=== PATIENT | male | born 1945 | race Caucasian/White ===

== ENCOUNTER 2017-10-24 16:39 | Inpatient (IN) | payer OTHER, MEDICARE ==
[~2017-10-24] VITALS: Ht 177.8 cm; Wt 73.4 kg
[2017-10-24] MEDS: DEXAMETHASONE SOD PHOS 4 MG/ML VIAL IV PUSH SCH (00:37)
[2017-10-24 16:41] VITALS: BP 96/66; PULSE 89; RESP 16; TEMP 97.9; O2SAT 98
[2017-10-24] MEDS ORDERED: SODIUM CHLORIDE 0.9% FLUSH 10 ML FLUSH IVF PRN (17:15)
[2017-10-24] MEDS ORDERED: DEXAMETHASONE SOD PHOS 4 MG/ML VIAL IV PUSH ONE (17:15)
[2017-10-24] MEDS ORDERED: SODIUM CHLORID 0.9% 500 ML INJ 500 ML IV ONE (17:15)
--- NOTE | 2017-10-24 17:39 | RADRPT ---
EXAM DATE/TIME: 10/24/2017 17:22 [facility] COMPARISON: No previous studies available for comparison. INDICATIONS : Difficulty breathing MEDICAL HISTORY : Carcinoma, lung. SURGICAL HISTORY : None. ENCOUNTER: Initial ACUITY: 1 day PAIN SCORE: 0/10 LOCATION: Bilateral chest FINDINGS: The right lung is clear. 2 somewhat lobulated masses are seen in the left upper lobe posteriorly lar gest measuring 2 cm and was seen on the CT scan of the chest dated 08/15/2007. The heart and vascular ity are normal. Degenerative changes thoracic spine. CONCLUSION: Left lung masses as described above. No new findings. Shakir Kumar MD FACR on October 24, 2017 at 17:30 Board Certified Radiologist. This report was verified electronically.
--- NOTE | 2017-10-24 17:59 | PD ---
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 Randhawa, with complaints of more difficulty speaking. Patient just saw his oncologist yesterday and was started on ipilimumab and nivolumab. He also decreased his Decadron from 4 mg to 2 mg daily. Patient also is on Keppra 500 mg twice daily. The patient has not had a seizure. Labs ordered including CBC, CMP, coagulation studies, and TSH., and CT scan and chest x-ray was ordered by Dr. Virk per his oncologist. Patient was given Decadron 4 mg IV. Patient is given a 500 mL of normal saline bolus. Patient is allergic to acetaminophen and oxycodone. PFSH Past Medical History Cardiovascular Problems: Yes Chemotherapy: Yes Diabetes: Yes Respiratory: Yes Social History Alcohol Use: No Tobacco Use: No Substance Use: No Allergies-Medications (Allergen,Severity, Reaction): Coded Allergies: acetaminophen (Verified Allergy, Severe, Rash, 10/24/17) ITCHY oxycodone (Verified Allergy, Severe, Rash, 10/24/17) ITCHY Reported Meds & Prescriptions Reported Meds & Active Scripts Active Reported Metformin (Metformin HCl) 1,000 Mg Tab 1,000 Mg PO BIDPC Pantoprazole (Pantoprazole Sodium) 40 Mg Tab 40 Mg PO DAILY Levemir Inj (Insulin Detemir) 1,000 unit/ 10 ML Vial 30 Units SQ HS Do not mix with any other Insulin. Dexamethasone 2 Mg Tab 2 Mg PO DAILY Rosuvastatin (Rosuvastatin Calcium) 40 Mg Tab 40 Mg PO DAILY Levothyroxine (Levothyroxine Sodium) 75 Mcg Tab 75 Mcg PO DAILY Review of Systems Except as stated in HPI: all other systems reviewed are Neg General / Constitutional: No: Fever Eyes: No: Diploplia, Blurred Vision, Photophobia, Blind Spots, Visual changes, Blindness HENT: Positive: Lightheadedness, No: Headaches, Vertigo, Sore Throat, Rhinitis , Rhinorrhea, Congestion, Nosebleed, Neck Stiffness, Neck Pain, Dental Difficulties, Earache Cardiovascular: Positive: Dyspnea on exertion, No: Chest Pain or Discomfort Respiratory: No: Cough, Shortness of Breath, Wheezing Gastrointestinal: Positive: Nausea, No: Vomiting, Diarrhea, Abdominal Pain Genitourinary: Positive: Decreased Urinary Output, No: Urgency, Frequency, Dysuria Musculoskeletal: Positive: Weakness, No: Pain Skin: No Rash Neurologic: No: Weakness Psychiatric: No: Depression Endocrine: No: Polydipsia Hematologic/Lymphatic: No: Easy Bruising Physical Exam Narrative GENERAL: Patient appears weak, and dry. SKIN: Warm and dry. Decreased pallor. Decreased turgor with tenting present. HEAD: Atraumatic. Normocephalic. EYES: Pupils equal and round. No scleral icterus. No injection or drainage. ENT: No nasal bleeding or discharge. Mucous membranes pink and dry. Patient has mild thrush noted. Otherwise pharynx is clear. Airway is patent NECK: Trachea midline. No JVD. CARDIOVASCULAR: Regular rate and rhythm. No murmurs gallops or rubs appreciated. RESPIRATORY: No accessory muscle use. Clear to auscultation. Breath sounds equal bilaterally. GASTROINTESTINAL: Abdomen soft, non-tender, nondistended. Hepatic and splenic margins not palpable. RECTAL: Rectum appears raw from moist liquidy stool noted. Rectal tone is present. Stool is brown and grossly guaiac positive. There are no hemorrhoids or fissures noted. MUSCULOSKELETAL: Extremities without clubbing, cyanosis, or edema. No obvious deformities. NEUROLOGICAL: Awake and alert. No obvious cranial nerve deficits. Motor grossly within normal limits. Five out of 5 muscle strength in the arms and legs. Normal speech. PSYCHIATRIC: Appropriate mood and affect; insight and judgment normal. Data Data Last Documented VS Vital Signs Date Time Temp Pulse Resp B/P (MAP) Pulse Ox O2 Delivery O2 Flow Rate FiO2 10/24/17 19:22 74 17 10/24/17 19:21 121/57 (78) 98 Room Air 10/24/17 16:41 97.9 Orders Orders Complete Blood Count With Diff (10/24/17 17:03) Comprehensive Metabolic Panel (10/24/17 17:03) Prothrombin Time / Inr (Pt) (10/24/17 17:03) Act Partial Throm Time (Ptt) (10/24/17 17:03) Ct Brain W/O Iv Contrast(Rout) (10/24/17 17:03) Ecg Monitoring (10/24/17 17:03) Iv Access Insert/Monitor (10/24/17 17:03) Oximetry (10/24/17 17:03) Sodium Chloride 0.9% Flush (Ns Flush) (10/24/17 17:15) Sodium Chlorid 0.9% 500 Ml Inj (Ns 500 M (10/24/17 17:15) Dexamethasone Inj (Decadron Inj) (10/24/17 17:15) Mri Brain W&W/O Contrast (10/24/17 17:03) Thyroid Stimulating Hormone (10/24/17 17:03) Chest, Pa & Lat (10/24/17 17:03) Ondansetron Inj (Zofran Inj) (10/24/17 19:00) Free Thyroxine (T4) (10/24/17 18:45) Admit Order (Ed Use Only) (10/24/17 19:25) Labs Laboratory Tests Test 10/24/17 18:45 White Blood Count 14.3 TH/MM3 Red Blood Count 4.87 MIL/MM3 Hemoglobin 14.9 GM/DL Hematocrit 43.8 % Mean Corpuscular Volume 89.9 FL Mean Corpuscular Hemoglobin 30.6 PG Mean Corpuscular Hemoglobin Concent 34.0 % Red Cell Distribution Width 15.4 % Platelet Count 187 TH/MM3 Mean Platelet Volume 8.5 FL Neutrophils (%) (Auto) 68.8 % Lymphocytes (%) (Auto) 23.3 % Monocytes (%) (Auto) 7.0 % Eosinophils (%) (Auto) 0.1 % Basophils (%) (Auto) 0.8 % Neutrophils # (Auto) 9.9 TH/MM3 Lymphocytes # (Auto) 3.3 TH/MM3 Monocytes # (Auto) 1.0 TH/MM3 Eosinophils # (Auto) 0.0 TH/MM3 Basophils # (Auto) 0.1 TH/MM3 CBC Comment DIFF FINAL Differential Comment Prothrombin Time 10.6 SEC Prothromb Time International Ratio 1.0 RATIO Activated Partial Thromboplast Time 23.8 SEC Blood Urea Nitrogen 93 MG/DL Creatinine 8.22 MG/DL Random Glucose 157 MG/DL Albumin 2.8 GM/DL Calcium Level 9.2 MG/DL Aspartate Amino Transf (AST/SGOT) 70 U/L Alanine Aminotransferase (ALT/SGPT) 86 U/L Sodium Level 133 MEQ/L Potassium Level 4.6 MEQ/L Chloride Level 93 MEQ/L Carbon Dioxide Level 18.5 MEQ/L Anion Gap 22 MEQ/L Estimat Glomerular Filtration Rate 6 ML/MIN [facility] Medical Decision Making Medical Screen Exam Complete: Yes Emergency Medical Condition: Yes Medical Record Reviewed: Yes Differential Diagnosis Generalized weakness. Difficulty speaking. Known metastatic melanoma to the brain and lungs. Recent chemotherapy. Narrative Course Patient is medically stable at time of exam Labs ordered including CBC, CMP, coagulation studies, and TSH., and CT scan and chest x-ray was ordered by Dr. Virk per his oncologist. Patient was given Decadron 4 mg IV. Patient is given a 500 mL of normal saline bolus. Chest x-ray shows no acute changes from previous. Patient continues to have metastatic lesions as previous without change per radiologist. CBC is unremarkable except for leukocytosis of 14.3. Coagulation studies shows a PT of 10.6, INR 1.0. APTT is 23.8 Chemistries show sodium 133, potassium 4.6, chloride is 93. Carbon dioxide is 18.5, anion gap is 22, BUN is 93 with a creatinine of 8.22, GFR estimated 6. Random glucose 157 AST 70, ALT 86, albumin is 2.8. Patient is discussed with Dr. Randhawa as well as Dr. Fink, and the patient will be admitted. Diagnosis Primary Impression: Acute renal failure Qualified Codes: N17.9 - Acute kidney failure, unspecified Additional Impressions: Weakness generalized Metastatic melanoma Stool guaiac positive Admitting Information Admitting Physician Requests: Admit Condition: Stable Baldemar Coffey Oct 24, 2017 17:59
--- NOTE | 2017-10-24 18:26 | RADRPT ---
EXAM DATE/TIME: 10/24/2017 17:43 [facility] COMPARISON: No previous studies available for comparison. INDICATIONS : Patient complains of weakness, headache, history brain metastases. RADIATION DOSE: 56.35 CTDIvol (mGy) MEDICAL HISTORY : Cardiovascular disease. Diabetes mellitus type 1. chemo, metastatic melanoma, brain metastases SURGICAL HISTORY : None. ENCOUNTER: Initial ACUITY: 1 day PAIN SCALE: 5/10 LOCATION: cranial TECHNIQUE: Multiple contiguous axial images were obtained of the head. Using automated exposure control and adj ustment of the mA and/or kV according to patient size, radiation dose was kept as low as reasonably a chievable to obtain optimal diagnostic quality images. DICOM format image data is available electro nically for review and comparison. FINDINGS: CEREBRUM: The ventricles are normal for age. Multiple hypodense as well as hyperdense masses are seen in both c erebral hemispheres with characteristic for brain metastatic disease. There is a hypodense mass in th e left temporal lobe measuring 2.3 cm. There is a hyperdense mass measuring 1 cm in the left occipita l lobe. There is a 6 mm hyperdense mass in the right insula there is a 1.4 cm hypodense mass in the r ight frontal lobe there is a 1.4 cm hyperdense mass in the right posterior parietal area. No mass eff ect or midline shift. The hyperdense masses could indicate hemorrhage. No significant surrounding cer ebral edema seen. POSTERIOR FOSSA: There is a hyperdense mass measuring 1 cm in the midline vermis. This is positioned just posterior to the fourth ventricle. The fourth ventricle is normal in size. EXTRACRANIAL: The visualized portion of the orbits is intact. SKULL: The calvaria is intact. No evidence of skull fracture. CONCLUSION: 1. There is evidence of diffuse bilateral brain metastatic disease. There are several hyperdense mass es which could be hemorrhagic masses. 2. No significant mass effect or midline shift. Mayo Baird MD on October 24, 2017 at 18:19 Board Certified Radiologist. This report was verified electronically.
[2017-10-24] MEDS ORDERED: LEVO75TA3 PO (18:28)
[2017-10-24] MEDS ORDERED: ROSU1TAB10 PO (18:35)
[2017-10-24] MEDS ORDERED: DEXA2TAB PO (18:35)
[2017-10-24] MEDS ORDERED: PANT40TA3 PO (18:35)
[2017-10-24] MEDS ORDERED: METF1000 PO (18:35)
[2017-10-24] MEDS ORDERED: LEVEMIR SQ (18:35)
[2017-10-24 18:45] VITALS: BP 115/58; PULSE 78; RESP 16; O2SAT 98
[2017-10-24 18:58] LABS: AUTOMATED NEUTROPHIL # 9.9 TH/MM3 (1.8-7.7); BASOPHIL # 0.1 TH/MM3 (0-0.2); BASOPHIL % 0.8 % (0.0-2.0); EOSINOPHIL % 0.1 % (0.0-4.0); HEMATOCRIT 43.8 % (39.0-51.0); HEMOGLOBIN 14.9 GM/DL (13.0-17.0); LYMPH % 23.3 % (9.0-44.0); LYMPHOCYTE # 3.3 TH/MM3 (1.0-4.8); MEAN CELL VOLUME 89.9 FL (80.0-100.0); MEAN CORPUSCULAR HEMOGLOBIN 30.6 PG (27.0-34.0); MEAN PLATELET VOLUME 8.5 FL (7.0-11.0); NEUT % 68.8 % (16.0-70.0); PLATELET COUNT 187 TH/MM3 (150-450); RED BLOOD COUNT 4.87 MIL/MM3 (4.50-5.90); RED CELL DISTRIBUTION WIDTH 15.4 % (11.6-17.2); WHITE BLOOD COUNT 14.3 TH/MM3 (4.0-11.0)
[2017-10-24 18:59] VITALS: O2SAT 98
[2017-10-24] MEDS ORDERED: ONDANSETRON HCL 4 MG/2 ML VIAL IV PUSH ONE (19:00)
[2017-10-24 19:09] LABS: PROTHROMBIN TIME - PATIENT 10.6 SEC (9.8-11.6)
[2017-10-24 19:20] LABS: ALBUMIN 2.8 GM/DL (3.4-5.0); ALT (GPT) 86 U/L (12-78); AST (GOT) 70 U/L (15-37); BICARBONATE 18.5 MEQ/L (21.0-32.0); BLOOD UREA NITROGEN 93 MG/DL (7-18); CALCIUM 9.2 MG/DL (8.5-10.1); CHLORIDE 93 MEQ/L (98-107); CREATININE 8.22 MG/DL (0.60-1.30); GLOMERULAR FILTRATION RATE 6 ML/MIN (>89); GLUCOSE,RANDOM 157 MG/DL (74-106); SODIUM (NA) 133 MEQ/L (136-145)
[2017-10-24 19:21] VITALS: BP 121/57; PULSE 74; RESP 16; O2SAT 98
[2017-10-24 19:30] LABS: ALKALINE PHOSPHATASE 76 U/L (45-117); FREE T4 1.01 NG/DL (0.76-1.46); TOTAL BILIRUBIN ADULT 0.8 MG/DL (0.2-1.0); TOTAL PROTEIN 7.3 GM/DL (6.4-8.2)
[2017-10-24] MEDS ORDERED: SENNOSIDES 8.6 MG TAB PO PRN (19:30)
[2017-10-24] MEDS ORDERED: LACTULOSE SYRUP 20 GM/30 ML CUP PO PRN (19:30)
[2017-10-24] MEDS ORDERED: BISACODYL 10 MG SUPP RECTAL PRN (19:30)
[2017-10-24] MEDS ORDERED: MAGNESIUM HYDROXIDE SUSP 30 ML CUP PO PRN (19:30)
[2017-10-24] MEDS ORDERED: ONDANSETRON HCL 4 MG/2 ML VIAL IVP PRN (19:30)
[2017-10-24] MEDS ORDERED: MORPHINE SULFATE 2 MG/ML INJ IV PUSH PRN ×2 (19:30)
[2017-10-24] MEDS ORDERED: SODIUM CHLORIDE 0.9% FLUSH 10 ML FLUSH IV FLUSH PRN (19:30)
--- NOTE | 2017-10-24 19:34 | HHI.HP ---
HPI Service [facility] Primary Care Physician Jorge L Randhawa MD Admission Diagnosis Acute renal failure /weakness/metastatic melenoma/guaiac positive st Diagnoses: (1) Metastatic melanoma Diagnosis: Principal (2) CASANDRA (acute kidney injury) Diagnosis: Principal (3) Anorexia Diagnosis: Principal (4) Generalized weakness Diagnosis: Principal (5) Oral thrush Diagnosis: Principal (6) DM (diabetes mellitus) Diagnosis: Principal Travel History International Travel<30 Days: No Contact w/Intl Traveler <30 Da: No Traveled to Known Affected Are: No History of Present Illness This is a 72-year-old male with a PMH of DM and Metastatic Melanoma to HEAD [employer]/ Lungs who was referred to the ER by his Oncologist, Dr. Randhawa for further evaluation of generalized weakness and decreased PO intake. Was recently started on Ipilimumab and Nivolumab approx 10 days ago and was decreased from Decadron 4mg qd to 2mg qd. Pt notes progressive generalized weakness and lack of appetite since treatment. Denies fever, chills. On arrival, BP 96/66, HR 89 , O2 sat 98% on RA, Afebrile. WBC 14.3. Creatinine 8.22, no previous labs for comparison however reportedly normal. K+ 4.6. CXR w/ left lung masses. CT Head w/ diffuse bilateral brain metastatic disease w/ several hyperdense masses possibly hemorrhagic. No c/o abdominal pain, nausea/vomiting or diarrhea. Review of Systems Except as stated in HPI: all other systems reviewed are Neg ROS: 14 point review of systems otherwise negative. Past Family Social History Past Medical History PMH: DM and Metastatic Melanoma to HEAD [employer]/Lungs Past Surgical History PAST SURGICAL HISTORY: None Allergies: Coded Allergies: acetaminophen (Verified Allergy, Severe, Rash, 10/24/17) ITCHY oxycodone (Verified Allergy, Severe, Rash, 10/24/17) ITCHY Family History PAST FAMILY HISTORY: Reviewed. No h/o DM or CAD Social History PAST SOCIAL HISTORY: Occasional alcohol. Negative for tobacco or drugs. Physical Exam Vital Signs Vital Signs Date Time Temp Pulse Resp B/P (MAP) Pulse Ox O2 Delivery O2 Flow Rate FiO2 10/24/17 19:22 74 17 10/24/17 19:21 74 16 121/57 (78) 98 Room Air 10/24/17 18:59 98 Room Air 10/24/17 18:45 78 16 115/58 (77) 98 Room Air 10/24/17 16:41 97.9 89 16 96/66 (76) 98 Physical Exam PE: GENERAL: Very pleasant elderly white male in no acute distress. HEENT: PERRLA, EOMI. No scleral icterus or conjunctival pallor. No lid lag or facial droop. +dry mucous membranes. +oral thrush CARDIOVASCULAR: Regular rate and rhythm. No obvious murmurs to auscultation. No chest tenderness to palpation. RESPIRATORY: No obvious rhonchi or wheezing. Clear to auscultation. Breath sounds equal bilaterally. GASTROINTESTINAL: Abdomen soft, non-tender, nondistended. BS normal. MUSCULOSKELETAL: Extremities without clubbing, cyanosis, or edema. No obvious deformities. NEUROLOGICAL: Awake, alert and oriented x4. No focal neurologic deficits. Moving both upper and lower extremities spontaneously. Laboratory Laboratory Tests Test 10/24/17 18:45 White Blood Count 14.3 Red Blood Count 4.87 Hemoglobin 14.9 Hematocrit 43.8 Mean Corpuscular Volume 89.9 Mean Corpuscular Hemoglobin 30.6 Mean Corpuscular Hemoglobin Concent 34.0 Red Cell Distribution Width 15.4 Platelet Count 187 Mean Platelet Volume 8.5 Neutrophils (%) (Auto) 68.8 Lymphocytes (%) (Auto) 23.3 Monocytes (%) (Auto) 7.0 Eosinophils (%) (Auto) 0.1 Basophils (%) (Auto) 0.8 Neutrophils # (Auto) 9.9 Lymphocytes # (Auto) 3.3 Monocytes # (Auto) 1.0 Eosinophils # (Auto) 0.0 Basophils # (Auto) 0.1 CBC Comment DIFF FINAL Differential Comment Prothrombin Time 10.6 Prothromb Time International Ratio 1.0 Activated Partial Thromboplast Time 23.8 Blood Urea Nitrogen 93 Creatinine 8.22 Random Glucose 157 Total Protein 7.3 Albumin 2.8 Calcium Level 9.2 Alkaline Phosphatase 76 Aspartate Amino Transf (AST/SGOT) 70 Alanine Aminotransferase (ALT/SGPT) 86 Total Bilirubin 0.8 Sodium Level 133 Potassium Level 4.6 Chloride Level 93 Carbon Dioxide Level 18.5 Anion Gap 22 Estimat Glomerular Filtration Rate 6 Free Thyroxine 1.01 Thyroid Stimulating Hormone 3rd Gen 3.650 Result Diagram: 10/24/17184410/24/171844 Caprini VTE Risk Assessment Caprini VTE Risk Assessment: No/Low Risk (score <= 1) Caprini Risk Assessment Model Point Value = 1 Point Value = 2 Point Value = 3 Point Value = 5 Age 41-60 Minor surgery BMI > 25 kg/m2 Swollen legs Varicose veins or History of unexplained or recurrent spontaneous Oral contraceptives or hormone replacement Sepsis (< 1 month) Serious lung disease, including pneumonia (< 1 month) Abnormal pulmonary function Acute myocardial infarction Congestive heart failure (< 1 month) History of inflammatory bowel disease Medical patient at bed rest Age 61-74 Arthroscopic surgery Major open surgery (> 45 min) Laparoscopic surgery (> 45 min) Malignancy Confined to bed (> 72 hours) Immobilizing plaster cast Central venous access Age >= 75 History of VTE Family history of VTE Factor V Leiden Prothrombin [id number] Lupus anticoagulant Anticardiolipin antibodies Elevated serum homocysteine Heparin-induced thrombocytopenia Other congenital or acquired thrombophilia Stroke (< 1 month) Elective arthroplasty Hip, pelvis, or leg fracture Acute spinal cord injury (< 1 month) Prophylaxis Regimen Total Risk Factor Score Risk Level Prophylaxis Regimen 0-1 Low Early ambulation 2 Moderate Order ONE of the following: *Sequential Compression Device (SCD) *Heparin 5000 units SQ BID 3-4 Higher Order ONE of the following medications: *Heparin 5000 units SQ TID *Enoxaparin/Lovenox 40 mg SQ daily (WT < 150 kg, CrCl > 30 mL/min) *Enoxaparin/Lovenox 30 mg SQ daily (WT < 150 kg, CrCl > 10-29 mL/min) *Enoxaparin/Lovenox 30 mg SQ BID (WT < 150 kg, CrCl > 30 mL/min) AND/OR *Sequential Compression Device (SCD) 5 or more Highest Order ONE of the following medications: *Heparin 5000 units SQ TID (Preferred with Epidurals) *Enoxaparin/Lovenox 40 mg SQ daily (WT < 150 kg, CrCl > 30 mL/min) *Enoxaparin/Lovenox 30 mg SQ daily (WT < 150 kg, CrCl > 10-29 mL/min) *Enoxaparin/Lovenox 30 mg SQ BID (WT < 150 kg, CrCl > 30 mL/min) AND *Sequential Compression Device (SCD) Assessment and Plan Problem List: (1) Metastatic melanoma ICD Code: C79.9 - Secondary malignant neoplasm of unspecified site Status: Acute (2) CASANDRA (acute kidney injury) ICD Code: N17.9 - Acute kidney failure, unspecified (3) Generalized weakness ICD Code: R53.1 - Weakness (4) Anorexia ICD Code: R63.0 - Anorexia (5) Oral thrush ICD Code: B37.0 - Candidal stomatitis (6) DM (diabetes mellitus) ICD Code: E11.9 - Type 2 diabetes mellitus without complications Assessment and Plan A/P: 1. Metastatic Melanoma: w/ Mets to HEAD [employer]/Lung. Following w/ Dr. Randhawa who evaluated pt in ER, I had extensive discussion w/ Dr. Randhawa regarding pt's current condition and plan of care. Will continue to hold Keppra. CT Head w/ diffuse bilateral brain metastatic disease, hyperdense masses possibly hemorrhagic, images reviewed by me. Neuro checks. No anticoagulation in light of high risk w/ brain mets. Decadron 4mg bid. 2. CASANDRA: Creatinine 8.22, no previous labs for comparison however presumably new. Check Renal US, Check U/a for underlying UTI, Consult Nephrology for further recommendations, IVF for hydration, repeat labs in am. Hold nephrotoxic agents. 3. Oral Thrush: Start Diflucan, caution w/ renal function, adjust dose as needed. 4. Generalized Weakness: likely multifactorial-metastatic disease recently started on treatment and CASANDRA. IVF for hydration, PT for eval/tx. 5. Anorexia: no c/o pain w/ swallowing, likely secondary to above. Hold Megace as possible thrombolytic, Consult Dietary/Nutrition as needed. 6. DM: Sliding scale w/ Accu-Cheks. Hold Metformin in light of CASANDRA. 7. DVT Prophylaxis: SCD/teds. 8. Social work for DC planning as needed. 9. Case discussed at length with ER physician and with Dr. Randhawa, labs/imaging/ records reviewed by me. Physician Certification 2 Midnight Certification Type: Admission for Inpatient Services Order for Inpatient Services The services are ordered in accordance with Medicare regulations or non- Medicare payer requirements, as applicable. In the case of services not specified as inpatient-only, they are appropriately provided as inpatient services in accordance with the 2-midnight benchmark. Estimated LOS (days): 2 days is the estimated time the patient will need to remain in the hospital, assuming treatment plan goals are met and no additional complications. Post-Hospital Plan: Not yet determined Roxann Fink MD Oct 24, 2017 19:34
[2017-10-24] MEDS: cefTRIAXone INJ 1,000 MG in SODIUM CHLORIDE 0.9% INJ 100 ML IV SCH (20:38)
[2017-10-24] MEDS ORDERED: FAMOTIDINE 20 MG/2 ML VIAL IV PUSH SCH (21:00)
[2017-10-24] MEDS: SODIUM CHLORIDE 0.9% FLUSH 10 ML FLUSH IV FLUSH SCH (21:00)
[2017-10-24] MEDS ORDERED: FLUCONAZOLE 200 MG PREMIX BAG 100 ML IV ONE (21:00)
[2017-10-24] MEDS: SODIUM CHLOR 0.9% 1000 ML INJ 1,000 ML IV SCH (21:06)
[2017-10-24] MEDS ORDERED: DEXTROSE 50% IN WATER 50 ML VIAL(D50) IV PUSH PRN (21:15)
[2017-10-24] MEDS ORDERED: GLUCAGON 1 MG/ML VIAL OTHER PRN (21:15)
--- NOTE | 2017-10-24 21:44 | RADRPT ---
EXAM DATE/TIME: 10/24/2017 21:16 [facility] COMPARISON: No previous studies available for comparison. INDICATIONS : Increased BUN/Creatnine. MEDICAL HISTORY : Diabetes. Cardiac disorders. Chemotherapy. Respiratory disorders. SURGICAL HISTORY : None. ENCOUNTER: Initial ACUITY: 2 months PAIN SCORE: 4/10 LOCATION: Bilateral flank MEASUREMENTS: RIGHT KIDNEY: 14.0 x 4.1 x 5.4 cm LEFT KIDNEY: 12.7 x 4.3 x 5.6 cm FINDINGS: RIGHT KIDNEY: There is some increased echogenicity of the renal parenchyma. There is no evidence of hydronephrosis. There is a cyst along the lower pole measuring 1.5 cm. There is a 3 mm calcification along the midpo le. LEFT KIDNEY: There is some increased echogenicity of the renal parenchyma. There is no evidence of hydronephrosis. BLADDER: Within normal limits given the degree of distension. There is some debris along the base the urinary bladder. There is some thickening of the urinary bladder wall 9 mm. CONCLUSION: 1. No evidence of hydronephrosis. 2. 3 mm calcification along the midpole the right kidney. This very represent a nonobstructing tiny r enal stone. 3. Benign-appearing right renal cyst measuring 1.5 cm. 4. There is some thickening of the urinary bladder wall and some debris in the urinary bladder. Mayo Baird MD on October 24, 2017 at 21:40 Board Certified Radiologist. This report was verified electronically.
[2017-10-25] VITALS (24 sets, daily range): BP systolic 111–126; BP diastolic 60–69; PULSE 60–80; RESP 15–18; TEMP 97–98.1; O2SAT 96–98
[2017-10-25] MEDS: DOCUSATE SODIUM 50 MG/SENNA 8.6 MG TAB PO SCH ×3 (01:02→21:58)
[2017-10-25] MEDS: SODIUM CHLOR 0.9% 1000 ML INJ 1,000 ML IV SCH ×2 (05:29→07:18)
--- NOTE | 2017-10-25 06:48 | MB ---
cc: CHEEMACHUN DATE OF CONSULTATION 10/24/2017 REASON FOR CONSULTATION Patient with metastatic melanoma to the brain status post immune therapy with nausea, vomiting, weakness, incontinence and now new renal failure. PATIENT PROFILE The patient is a 72-year-old male. He is . He has a female wheel shop supervisor/fiance whose name is Gian. 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 He stopped smoking 30 years ago and smoked a pack of cigarettes per day for 23 years. There is no recent alcohol intake. Prior to his illness he enjoyed golf, walking, reading, traveling and politics. HISTORY OF PRESENT ILLNESS The patient is a 72-year-old male who had a melanoma removed from the tip of the nose in February 2015 which by history was an in situ melanoma. This apparently grew back and in May 2015 he had a second surgery removing the melanoma. By history it was again an in situ melanoma. In August 2017 he became acutely ill with short-term memory loss and problems with balance. He was evaluated at the [facility] in [place], [place]. He was found to have nine metastatic lesions to the brain and a number of metastatic lesions to the lung and questionable adenopathy in the abdomen. He had a core needle biopsy of the left lung on 09/16/2017 which revealed melanoma. There was no BRAF mutation. There was not adequate tissue for PD-L1 testing. He was treated with whole-brain radiation therapy completed approximately 2 weeks ago. He received ipilimumab and nivolumab on 10/16/2017. During the past several weeks there has been increasing weakness, fatigue, and during the past four or five days there has been loss of appetite, occasional vomiting, and cognitively there has been a decrease in memory. My office called his home to see how he was doing and when we learned about these events including some incontinence of stool we referred him to the emergency room where I am currently seeing him. IMAGING A head CT scan shows multiple hypodense as well as hyperdense masses in both cerebral hemispheres characteristic of brain metastatic disease. There is a hypodense mass in the left temporal lobe measuring 2.3 cm. There is no significant surrounding edema. This was done without IV contrast. Several of the hyperdense masses could be hemorrhagic. Chest x-ray reveals two somewhat lobulated masses in the left upper lobe posteriorly. The largest is 2 cm. LABORATORY On 10/24/2017 hemoglobin is 14, white count 14,000, platelets 187,000. Sodium 133, potassium 4.6, chloride 93, CO2 18, BUN 93, creatinine 8.2, glucose 157, AST 70, ALT 86, albumin 2.8. TSH is 3.65. PAST SURGICAL HISTORY 1. Bone spur right elbow 2004. 2. Colonoscopy in 2015 which was normal. 3. Removal of melanoma from the tip of the nose in February 2015 with second surgery performed in May 2015 for recurrence; both were felt to be in situ melanoma. 4. Cholecystectomy in 2001. 5. Appendectomy. 6. Tonsillectomy. PAST MEDICAL HISTORY 1. Type 2 diabetes. 2. Elevated cholesterol. 3. Hypertension. 4. Hypothyroidism. 5. Stage IV melanoma. MEDICATIONS Medications prior to admission: 1. Decadron 2 mg p.o. daily. 2. Levemir insulin. 3. Levothyroxine 75 mcg. 4. Metformin 1000 mg twice a day. 5. Protonix. 6. Lipitor. ALLERGIES PERCOCET RESULTED IN THE PATIENT FEELING WIRED. FAMILY HISTORY Nondistended. The patient's parents are . REVIEW OF SYSTEMS CONSTITUTIONAL: Profound global weakness. Weight loss of at least 28 pounds if not more. Difficulty with memory. Severe fatigue. HEENT: No change in vision or hearing. CARDIOVASCULAR: No chest pain or palpitations. BREASTS: No breast masses. PULMONARY: No shortness of breath. GASTROINTESTINAL: No abdominal or pelvic pain. He has had slight incontinence of stool and may have had a small amount of blood per rectum. GENITOURINARY: Decreased urination. MUSCULOSKELETAL: No bone pain. NEUROLOGIC: Poor short-term memory. Lethargy. No focal weakness. PHYSICAL EXAMINATION GENERAL: A chronically ill-appearing male. HEENT: His scalp is dry and red-brown from the whole-brain radiation. Sclera and conjunctiva are normal. Oropharynx reveals thrush over the tongue. LYMPH NODE SURVEY: There is no cervical, supraclavicular, axillary or inguinal adenopathy. HEART: Regular rhythm. LUNGS: Clear without rales, wheezes or rhonchi. ABDOMEN: The abdomen is soft. There are no masses or tenderness. There is nothing to suggest acute colitis. EXTREMITIES: No edema. MUSCULOSKELETAL: No bone pain. NEUROLOGIC: Globally weak but without any focal weakness. Slightly lethargic. Memory for recent events impaired. ASSESSMENT The patient is a 72-year-old male who has metastatic melanoma to the brain with disease in the left chest. He has no overt disease elsewhere. He completed whole-brain radiation therapy approximately 2 weeks ago and was treated with ipilimumab and nivolumab on 10/16/2017, which is eight days ago. At this point it is unlikely that we are dealing with an acute autoimmune event from the therapy. The most likely explanation is profound dehydration causing renal failure with the renal failure causing lethargy and confusion. In addition to the above he has thrush. The CT scan of the brain shows numerous metastases but I suspect that they are not as large as the original metastases at the time of diagnosis which were described as measuring up to 3.4 cm. RECOMMENDATIONS 1. Renal ultrasound. 2. IV fluids. 3. At this point I would not do an MRI of the brain. 4. Fluconazole. 5. Daily BMP. 6. Renal consult. 7. I would not resume Keppra or give him any blood pressure medications. 8: will require Decadron, would recommend 2-4 mg a day. no significant edema on ct of brain I am hopeful that this represents acute renal failure from dehydration and once this is resolved we will see an improvement in his mentation. For the present time I would not give him Megace for appetite as his appetite may improve once the renal failure improves. He has had hemorrhagic metastases. I would not give him Lovenox. Compression stockings would be appropriate. The above was discussed with the patient's hospitalist, Dr. Fink. MD MADELINE Beaulieu/SALVADOR /7:44 PM /6:10 AM SILVIO
[2017-10-25 07:02] LABS: AUTOMATED NEUTROPHIL # 7.6 TH/MM3 (1.8-7.7); BASOPHIL # 0.1 TH/MM3 (0-0.2); BASOPHIL % 0.5 % (0.0-2.0); EOSINOPHIL % 0.1 % (0.0-4.0); HEMATOCRIT 36.1 % (39.0-51.0); HEMOGLOBIN 12.4 GM/DL (13.0-17.0); LYMPH % 28.9 % (9.0-44.0); LYMPHOCYTE # 3.3 TH/MM3 (1.0-4.8); MEAN CELL VOLUME 89.2 FL (80.0-100.0); MEAN CORPUSCULAR HEMOGLOBIN 30.6 PG (27.0-34.0); MEAN CORPUSCULAR HGB CONC 34.2 % (32.0-36.0); MEAN PLATELET VOLUME 8.8 FL (7.0-11.0); MONO % 3.1 % (0.0-8.0); MONOCYTE # 0.4 TH/MM3 (0-0.9); NEUT % 67.4 % (16.0-70.0); PLATELET COUNT 165 TH/MM3 (150-450); RED BLOOD COUNT 4.05 MIL/MM3 (4.50-5.90); RED CELL DISTRIBUTION WIDTH 15.3 % (11.6-17.2); WHITE BLOOD COUNT 11.3 TH/MM3 (4.0-11.0)
[2017-10-25 07:37] LABS: ALBUMIN 2.2 GM/DL (3.4-5.0); ALKALINE PHOSPHATASE 56 U/L (45-117); ALT (GPT) 77 U/L (12-78); AST (GOT) 58 U/L (15-37); BICARBONATE 15.3 MEQ/L (21.0-32.0); BLOOD UREA NITROGEN 100 MG/DL (7-18); CHLORIDE 100 MEQ/L (98-107); CREATININE 8.24 MG/DL (0.60-1.30); GLOMERULAR FILTRATION RATE 6 ML/MIN (>89); GLUCOSE,RANDOM 136 MG/DL (74-106); SODIUM (NA) 135 MEQ/L (136-145); TOTAL BILIRUBIN ADULT 0.4 MG/DL (0.2-1.0); TOTAL PROTEIN 5.4 GM/DL (6.4-8.2)
[2017-10-25] MEDS: INSULIN ASPART SUPPLEMENTAL SCALE SQ SCH ×4 (08:00→22:14)
[2017-10-25] MEDS: FAMOTIDINE 20 MG/2 ML VIAL IV PUSH SCH ×2 (08:49→21:58)
[2017-10-25] MEDS: DEXAMETHASONE SOD PHOS 4 MG/ML VIAL IV PUSH SCH ×2 (08:49→21:58)
[2017-10-25] MEDS: SODIUM CHLORIDE 0.9% FLUSH 10 ML FLUSH IV FLUSH SCH ×2 (08:50→22:08)
--- NOTE | 2017-10-25 09:26 | PD.ONC.PN ---
Subjective Subjective Remarks Afebrile Pt reports he feels better this am after getting IV fluids overnight Reports he has not had much urine output Per RN, they are planning to do a bladder scan this morning Nurse reports he has had some tearful moments throughout the morning Objective Data Date Time Temp Pulse Resp B/P (MAP) Pulse Ox O2 Delivery O2 Flow Rate FiO2 10/25/17 05:55 70 10/25/17 04:49 97.5 67 18 111/69 (83) 97 10/25/17 04:00 68 10/25/17 03:33 66 10/25/17 02:18 66 10/25/17 01:01 66 10/25/17 00:49 98.1 65 15 116/62 (80) 98 10/25/17 00:41 10/24/17 19:22 74 17 10/24/17 19:21 74 16 121/57 (78) 98 Room Air 10/24/17 18:59 98 Room Air 10/24/17 18:45 78 16 115/58 (77) 98 Room Air 10/24/17 16:41 97.9 89 16 96/66 (76) 98 Result Diagram: 10/25/17 0502 10/25/17 0502 Laboratory Results Laboratory Tests Test 10/24/17 18:45 10/25/17 05:02 White Blood Count 14.3 TH/MM3 11.3 TH/MM3 Red Blood Count 4.87 MIL/MM3 4.05 MIL/MM3 Hemoglobin 14.9 GM/DL 12.4 GM/DL Hematocrit 43.8 % 36.1 % Mean Corpuscular Volume 89.9 FL 89.2 FL Mean Corpuscular Hemoglobin 30.6 PG 30.6 PG Mean Corpuscular Hemoglobin Concent 34.0 % 34.2 % Red Cell Distribution Width 15.4 % 15.3 % Platelet Count 187 TH/MM3 165 TH/MM3 Mean Platelet Volume 8.5 FL 8.8 FL Neutrophils (%) (Auto) 68.8 % 67.4 % Lymphocytes (%) (Auto) 23.3 % 28.9 % Monocytes (%) (Auto) 7.0 % 3.1 % Eosinophils (%) (Auto) 0.1 % 0.1 % Basophils (%) (Auto) 0.8 % 0.5 % Neutrophils # (Auto) 9.9 TH/MM3 7.6 TH/MM3 Lymphocytes # (Auto) 3.3 TH/MM3 3.3 TH/MM3 Monocytes # (Auto) 1.0 TH/MM3 0.4 TH/MM3 Eosinophils # (Auto) 0.0 TH/MM3 0.0 TH/MM3 Basophils # (Auto) 0.1 TH/MM3 0.1 TH/MM3 CBC Comment DIFF FINAL DIFF FINAL Differential Comment Prothrombin Time 10.6 SEC Prothromb Time International Ratio 1.0 RATIO Activated Partial Thromboplast Time 23.8 SEC Blood Urea Nitrogen 93 MG/DL 100 MG/DL Creatinine 8.22 MG/DL 8.24 MG/DL Random Glucose 157 MG/DL 136 MG/DL Total Protein 7.3 GM/DL 5.4 GM/DL Albumin 2.8 GM/DL 2.2 GM/DL Calcium Level 9.2 MG/DL 8.0 MG/DL Alkaline Phosphatase 76 U/L 56 U/L Aspartate Amino Transf (AST/SGOT) 70 U/L 58 U/L Alanine Aminotransferase (ALT/SGPT) 86 U/L 77 U/L Total Bilirubin 0.8 MG/DL 0.4 MG/DL Sodium Level 133 MEQ/L 135 MEQ/L Potassium Level 4.6 MEQ/L 5.1 MEQ/L Chloride Level 93 MEQ/L 100 MEQ/L Carbon Dioxide Level 18.5 MEQ/L 15.3 MEQ/L Anion Gap 22 MEQ/L 20 MEQ/L Estimat Glomerular Filtration Rate 6 ML/MIN 6 ML/MIN Free Thyroxine 1.01 NG/DL Thyroid Stimulating Hormone 3rd Gen 3.650 uIU/ML Imaging Studies Last [address] 10/24/171702 Signed Impressions: Service Date/Time: Tuesday, October 24, 2017 17:43 - CONCLUSION: 1. There is evidence of diffuse bilateral brain metastatic disease. There are several hyperdense masses which could be hemorrhagic masses. 2. No significant mass effect or midline shift. Mayo Baird MD Chest X-Ray 10/24/171702 Signed Impressions: Service Date/Time: Tuesday, October 24, 2017 17:22 - CONCLUSION: Left lung masses as described above. No new findings. Shakir Kumar MD FACR Administered Medications Medications (Trade) Dose Ordered Sig/Benson Route PRN Reason Start Time Stop Time Status Last Admin Dose Admin Dexamethasone Sodium Phosphate (Decadron Inj) 2 mg Q12HR IV PUSH 2/9/18 21:00 10/25/17 08:49 Ceftriaxone Sodium 1000 mg/ Sodium Chloride 100 ml @ 200 mls/hr Q24H IV 10/24/17 20:00 10/24/17 20:38 Sodium Chloride 1,000 ml @ 100 mls/hr Q10H IV 10/24/17 19:29 10/25/17 07:18 Sodium Chloride (NS Flush) 2 ml BID IV FLUSH 10/24/17 21:00 10/25/17 08:50 Famotidine (Pepcid Inj) 10 mg Q12H IV PUSH 10/25/17 09:00 10/25/17 08:49 Objective Remarks GENERAL: Older male resting in bed in no obvious distress. SKIN: Warm and dry. HEAD: Normocephalic. Ready complexion EYES: No injection or drainage. NECK: Supple, trachea midline. CARDIOVASCULAR: + S1/S2. No obvious murmurs. RESPIRATORY: Clear anteriorly. Breathing unlabored at rest. GASTROINTESTINAL: Abdomen soft, non-tender, nondistended. EXTREMITIES: No cyanosis, or edema. MUSCULOSKELETAL: Adequate muscle tone. NEUROLOGICAL: No obvious focal deficit. Awake, alert, and oriented x3. 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 He received presented in February 2015 when a melanoma versus removed from the tip of the nose. Unfortunately this progressed and he had a second surgery in May 2015 as it has grown back. In August 2017 he became acutely ill with memory problems and gait problems and was found to have metastatic disease to the brain. He is status post whole brain radiation therapy completed 2 weeks ago. Over the past several weeks he has had increased weakness fatigue and loss of appetite. He's also had increased vomiting. On admission he was found to have acute renal failure. Assessment Patient with metastatic melanoma to the brain status post immune therapy with nausea, vomiting, weakness, incontinence and now new renal failure. Plan 1. Get bladder scan 2. Pastoral consult for emotional support 3. Await nephrology consult. 4. Increase IV fluids 5. Check CMP in a.m. Attending Statement The exam, history, and the medical decision-making described in the above note were completed with the assistance of the mid-level provider. I reviewed and agree with the findings presented. I attest that I had a [id number] encounter with the patient on the same day, and personally performed and documented my assessment and findings in the medical record. Feels better. c/ o insomnia and asking for sleep meds. Still has minimal urine output. Renal US no obstruction. Creatinine stable this am. Pt appear dehydrated. Increase IVF. Await nephrology consult. Try temazepam prn for sleep. Discussed with family. Erma East Oct 25, 2017 09:26 Elie Yusuf MD Oct 25, 2017 12:26
[2017-10-25 12:03] LABS: AMORPHOUS SEDIMENT, URINE OCC; BACTERIA, URINE RARE /hpf; BILIRUBIN, URINE NEG (NEG); BLOOD, URINE SMALL (NEG); GLUCOSE,URINE TRACE mg/dL (NEG); KETONE, URINE NEG (NEG); MUCUS URINE FEW /lpf (OCC); NITRITE,URINE NEG (NEG); PH, URINE 5.5 (5.0-8.5); SPERM, URINE RARE; SQUAMOUS EPITHELIAL CELL URINE 1 /hpf (0-5); URINE COLOR YELLOW (YELLW/STRAW); URINE LEUKOCYTE ESTERASE NEG (NEG)
[2017-10-25] MEDS ORDERED: TEMAZEPAM 15 MG CAP PO PRN (12:30)
--- NOTE | 2017-10-25 15:29 | HHI.PR ---
Subjective Remarks No acute distress. Renal function has remained stable and has not improved today. No new complaints from the patient. No nausea. Objective Vital Signs Date Time Temp Pulse Resp B/P (MAP) Pulse Ox O2 Delivery O2 Flow Rate FiO2 10/25/17 14:31 65 10/25/17 08:00 97.0 68 16 121/64 (83) 97 10/25/17 08:00 67 10/25/17 05:55 70 10/25/17 04:49 97.5 67 18 111/69 (83) 97 10/25/17 04:00 68 10/25/17 03:33 66 10/25/17 02:18 66 10/25/17 01:01 66 10/25/17 00:49 98.1 65 15 116/62 (80) 98 10/25/17 00:41 10/24/17 19:22 74 17 10/24/17 19:21 74 16 121/57 (78) 98 Room Air 10/24/17 18:59 98 Room Air 10/24/17 18:45 78 16 115/58 (77) 98 Room Air 10/24/17 16:41 97.9 89 16 96/66 (76) 98 Result Diagram: 10/25/17 0502 10/25/17 0502 Objective Remarks GENERAL: NAD, A&Ox3 HEAD: Normocephalic. NECK: Supple, trachea midline. No lymphadenopathy. EYES: No scleral icterus. No injection or drainage. CARDIOVASCULAR: Regular rate and rhythm without murmurs, gallops, or rubs. RESPIRATORY: Breath sounds equal bilaterally. No accessory muscle use. GASTROINTESTINAL: Abdomen soft, non-tender, nondistended. MUSCULOSKELETAL: No cyanosis, or edema. SKIN: Warm and dry. Discoloration of the upper face and head secondary to radiation therapy NEURO: No focal neurological deficitis. A/P Problem List: (1) CASANDRA (acute kidney injury) ICD Code: N17.9 - Acute kidney failure, unspecified (2) DM (diabetes mellitus) ICD Code: E11.9 - Type 2 diabetes mellitus without complications (3) Acute renal failure ICD Code: N17.9 - Acute kidney failure, unspecified Status: Acute (4) Oral thrush ICD Code: B37.0 - Candidal stomatitis (5) Metastatic melanoma ICD Code: C79.9 - Secondary malignant neoplasm of unspecified site Status: Acute Assessment and Plan 72-year-old male admitted secondary to acute renal failure of unknown etiology Metastatic melanoma Continue Keppra Continue Decadron Oncology following Acute renal failure Etiology uncertain Avoid nephrotoxins Nephrology consulted and following Oral thrush Anorexia Continue Diflucan Generalized weakness Likely related to cancer in treatments Acute renal failure could be contributory Physical therapy continued Diabetes mellitus type 2 Follow blood sugars Insulin sliding scale Diabetic diet DVT prophylaxis SCDs Problem Qualifiers (1) Acute renal failure: Qualified Codes: N17.9 - Acute kidney failure, unspecified Guicho Vance MD Oct 25, 2017 15:29
--- NOTE | 2017-10-25 15:45 | MB ---
cc: KOKO HEREDIA MD DATE OF CONSULTATION: 10/25/17 REASON FOR CONSULTATION Elevated BUN and creatinine for evaluation. HISTORY OF PRESENT ILLNESS This is a 72-year-old male with a past medical history of diabetes mellitus, history of metastatic melanoma metastasized to the PHARMACY SERVICES REPRESENTATIVE and lung was brought to the hospital because of generalized weakness and decreased oral intake. I was called to see the patient because of very high BUN and creatinine. The patient denies any previous history of renal dysfunction, but when he came in his BUN was 93 and the creatinine was 8.2. The patient admits that for the last week or so he is not eating much and he has loose bowel motion off and on, there is no nausea or vomiting. He had radiation for his PHARMACY SERVICES REPRESENTATIVE metastasis. The patient is nonoliguric but he noticed that his urine output has decreased. He has no history of hematuria. There is no recent history of taking any nonsteroidal anti-inflammatory drugs or any antibiotics. PAST MEDICAL HISTORY 1. Diabetes mellitus. 2. Metastatic melanoma to PHARMACY SERVICES REPRESENTATIVE and lung. PAST SURGICAL HISTORY None. REVIEW OF SYSTEMS The patient has generalized weakness, feeling tired. There is no history of fever, no sore throat. He has some oral thrush and according to the family it is possibly contributing for decreased oral intake. There is no history of nausea or vomiting. Denies any shortness of breath. No chest pain and no abdominal pain. Occasionally he has loose bowel motion. There is no history of dysuria or hematuria but he did notice that he has decreased urine output. SOCIAL HISTORY There is no history of smoking. Occasionally he drinks alcoholic beverages. FAMILY HISTORY Noncontributory. ALLERGIES ACETAMINOPHEN, OXYCODONE. MEDICATIONS Currently he is on following medications. 1. Normal saline at 150/hr. 2. Nevin-Colace one tablet b.i.d. 3. Famotidine 10 mg IV q.12 hours. 4. Ceftriaxone one gram q.24 hours. 5. Fluconazole 100 mg IV q.24 hours. 6. Insulin aspart sliding scale. 7. Zofran as needed. PHYSICAL EXAMINATION GENERAL: On examination the patient is awake, alert, he is not in acute distress, sitting in the chair. VITAL SIGNS: His last blood pressure is 121/64, the lowest recorded on admission was 96/66, temperature is 97, oxygen saturation 97% on room air. HEENT: Pupils are mid constricted. Nonicteric sclerae. Conjunctivae are normal. NECK: Supple. JVD is not elevated. LUNGS: The patient has bilateral decreased air entry with occasional wheezing. HEART: S1 and S2. Regular rhythm. ABDOMEN: Abdomen is distended, soft, lax. There is no tenderness. Bowel sounds positive. EXTREMITIES: He has mild edema in the legs. INVESTIGATION WBC count is 11.3, hemoglobin 12.4, platelet count 165, neutrophils 67.4%. Sodium is 135, potassium 5.1, chloride 100, bicarb 15.3, BUN 100, creatinine 8.2. INR is 1.0. Urinalysis showing hazy urine with rare bacteria and WBC 4, RBC 2. IMAGING STUDIES The patient had a chest x-ray done which shows that he has two lobulated masses in the left upper lobe. The right lung is clear. Degenerative changes in thoracic spine. CT scan of the brain was done which showed that there is evidence of bilateral brain metastasis. Several hyperdense masses. No significant mass effect or midline shift. Ultrasound of the kidneys was done which shows that the kidneys are normal in size and no evidence of hydronephrosis. A 3 mm calcification along the mid pole of the right kidney. Benign appearing right renal cyst 1.5 cm. Thickening of the urinary bladder. ASSESSMENT AND PLAN 1. Acute kidney injury. 2. Possible urinary tract infection. 3. Metabolic acidosis. 4. Metastatic melanoma. 5. Diabetes mellitus. The patient has a very high BUN and creatinine. He has been nonoliguric. Potassium is normal but his bicarb is low. I will change his IV fluid and put some bicarb in the IV fluid, and I will get the urine sodium and osmolality. Most likely he has acute kidney injury because of acute tubular necrosis or possibility of some contribution by prerenal. I did discuss with the patient and the family about possibility of dialysis if his renal function does not improve. Thank you for the consultation and I will follow the patient while he is in the hospital. MD WATSON Lubin/YARY /1:34 PM /3:03 PM
[2017-10-25] MEDS: SODIUM BICARBONATE 8.4% INJ 75 MEQ in SODIUM CHLOR 0.45% 1000 ML INJ 1,000 ML IV SCH (21:57)
[2017-10-25] MEDS: cefTRIAXone INJ 1,000 MG in SODIUM CHLORIDE 0.9% INJ 100 ML IV SCH (21:58)
[2017-10-25] MEDS: FLUCONAZOLE 100 MG PREMIX BAG 50 ML IV SCH (22:55)
[2017-10-26] VITALS (24 sets, daily range): BP systolic 91–152; BP diastolic 51–68; PULSE 41–79; RESP 16–17; TEMP 97.6–98.4; O2SAT 97–100
[2017-10-26 01:42] LABS: SODIUM,RANDOM URINE 37 MEQ/L
[2017-10-26 01:48] LABS: OSMOLALITY,URINE 412 MOSM/KG (300-1300)
[2017-10-26] MEDS: SODIUM BICARBONATE 8.4% INJ 75 MEQ in SODIUM CHLOR 0.45% 1000 ML INJ 1,000 ML IV SCH ×3 (05:39→20:49)
[2017-10-26 07:27] LABS: AUTOMATED NEUTROPHIL # 8.8 TH/MM3 (1.8-7.7); BASOPHIL % 0.3 % (0.0-2.0); EOSINOPHIL % 0.1 % (0.0-4.0); HEMATOCRIT 31.1 % (39.0-51.0); HEMOGLOBIN 10.9 GM/DL (13.0-17.0); LYMPH % 24.3 % (9.0-44.0); MEAN CELL VOLUME 88.1 FL (80.0-100.0); MEAN CORPUSCULAR HEMOGLOBIN 30.8 PG (27.0-34.0); MEAN PLATELET VOLUME 8.4 FL (7.0-11.0); MONOCYTE # 0.5 TH/MM3 (0-0.9); NEUT % 71.3 % (16.0-70.0); PLATELET COUNT 170 TH/MM3 (150-450); RED BLOOD COUNT 3.52 MIL/MM3 (4.50-5.90); RED CELL DISTRIBUTION WIDTH 15.2 % (11.6-17.2); WHITE BLOOD COUNT 12.3 TH/MM3 (4.0-11.0)
[2017-10-26 08:01] LABS: ALBUMIN 2.2 GM/DL (3.4-5.0); BICARBONATE 15.3 MEQ/L (21.0-32.0); CALCIUM 7.1 MG/DL (8.5-10.1); CALCIUM-PROTEIN CORRECTED 8.4 MG/DL (8.5-10.1); CREATININE 9.3 MG/DL (0.60-1.30); TOTAL BILIRUBIN ADULT 0.3 MG/DL (0.2-1.0); TOTAL PROTEIN 4.8 GM/DL (6.4-8.2)
[2017-10-26] MEDS: DEXAMETHASONE SOD PHOS 4 MG/ML VIAL IV PUSH SCH ×2 (08:32→20:36)
[2017-10-26] MEDS: DOCUSATE SODIUM 50 MG/SENNA 8.6 MG TAB PO SCH ×2 (08:33→18:57)
[2017-10-26] MEDS: SODIUM CHLORIDE 0.9% FLUSH 10 ML FLUSH IV FLUSH SCH ×2 (08:33→20:07)
[2017-10-26] MEDS: FAMOTIDINE 20 MG/2 ML VIAL IV PUSH SCH ×2 (08:33→20:35)
[2017-10-26] MEDS: INSULIN ASPART SUPPLEMENTAL SCALE SQ SCH ×4 (10:13→20:36)
--- NOTE | 2017-10-26 10:22 | PD.ONC.PN ---
Subjective Subjective Remarks Afebrile Denies headache Reports he urinated twice last night in the toilet States he has a decreased amount of urine and it remains dark Objective Data Date Time Temp Pulse Resp B/P (MAP) Pulse Ox O2 Delivery O2 Flow Rate FiO2 10/26/17 05:39 97.6 58 16 116/63 (80) 97 10/26/17 04:00 55 10/26/17 03:00 56 10/26/17 02:00 60 10/26/17 01:00 56 10/26/17 00:00 60 10/26/17 00:00 97.6 63 17 121/66 (84) 97 10/25/17 23:00 62 10/25/17 22:00 60 10/25/17 21:53 97.4 62 16 126/69 (88) 96 10/25/17 21:00 60 10/25/17 20:00 60 10/25/17 19:00 62 10/25/17 18:00 64 10/25/17 17:00 66 10/25/17 16:54 97.2 68 18 125/60 (81) 98 10/25/17 16:00 68 10/25/17 15:00 70 10/25/17 14:31 65 10/25/17 13:00 64 10/25/17 12:00 80 10/25/17 12:00 97.5 64 16 118/62 (80) 98 10/25/17 11:00 70 10/26/17 10/26/17 10/26/17 07:00 15:00 23:00 Intake Total 480 ml Balance 480 ml Result Diagram: 10/26/17 0509 10/26/17 0509 Laboratory Results Laboratory Tests Test 10/25/17 10:50 10/26/17 05:09 Urine Color YELLOW Urine Turbidity HAZY Urine pH 5.5 Urine Specific [place] 1.018 Urine Protein 100 mg/dL Urine Glucose (UA) TRACE mg/dL Urine Ketones NEG mg/dL Urine Occult Blood SMALL Urine Nitrite NEG Urine Bilirubin NEG Urine Urobilinogen LESS THAN 2.0 MG/DL Urine Leukocyte Esterase NEG Urine RBC 2 /hpf Urine WBC 4 /hpf Urine Squamous Epithelial Cells 1 /hpf Urine Amorphous Sediment OCC Urine Bacteria RARE /hpf Urine Mucus FEW /lpf Urine Sperm RARE Microscopic Urinalysis Comment CULT NOT INDICATED Urine Osmolality 412 MOSM/KG Urine Random Sodium 37 MEQ/L White Blood Count 12.3 TH/MM3 Red Blood Count 3.52 MIL/MM3 Hemoglobin 10.9 GM/DL Hematocrit 31.1 % Mean Corpuscular Volume 88.1 FL Mean Corpuscular Hemoglobin 30.8 PG Mean Corpuscular Hemoglobin Concent 35.0 % Red Cell Distribution Width 15.2 % Platelet Count 170 TH/MM3 Mean Platelet Volume 8.4 FL Neutrophils (%) (Auto) 71.3 % Lymphocytes (%) (Auto) 24.3 % Monocytes (%) (Auto) 4.0 % Eosinophils (%) (Auto) 0.1 % Basophils (%) (Auto) 0.3 % Neutrophils # (Auto) 8.8 TH/MM3 Lymphocytes # (Auto) 3.0 TH/MM3 Monocytes # (Auto) 0.5 TH/MM3 Eosinophils # (Auto) 0.0 TH/MM3 Basophils # (Auto) 0.0 TH/MM3 CBC Comment DIFF FINAL Differential Comment Blood Urea Nitrogen 124 MG/DL Creatinine 9.30 MG/DL Random Glucose 157 MG/DL Total Protein 4.8 GM/DL Albumin 2.2 GM/DL Calcium Level 7.1 MG/DL Alkaline Phosphatase 47 U/L Aspartate Amino Transf (AST/SGOT) 39 U/L Alanine Aminotransferase (ALT/SGPT) 62 U/L Total Bilirubin 0.3 MG/DL Sodium Level 134 MEQ/L Potassium Level 5.1 MEQ/L Chloride Level 99 MEQ/L Carbon Dioxide Level 15.3 MEQ/L Anion Gap 20 MEQ/L Estimat Glomerular Filtration Rate 6 ML/MIN Protein Corrected Calcium 8.4 MG/DL Administered Medications Medications (Trade) Dose Ordered Sig/Benson Route PRN Reason Start Time Stop Time Status Last Admin Dose Admin Dexamethasone Sodium Phosphate (Decadron Inj) 2 mg Q12HR IV PUSH 10/24/17 21:00 10/26/17 08:32 Ceftriaxone Sodium 1000 mg/ Sodium Chloride 100 ml @ 200 mls/hr Q24H IV 10/24/17 20:00 10/25/17 21:58 Sodium Chloride (NS Flush) 2 ml BID IV FLUSH 10/24/17 21:00 10/26/17 08:33 Senna/Docusate Sodium (Nevin-Colace) 1 tab BID PO 10/24/17 21:00 10/25/17 21:58 Fluconazole/ Sodium Chloride 50 ml @ 50 mls/hr Q24H IV 10/25/17 21:00 10/25/17 22:55 Famotidine (Pepcid Inj) 10 mg Q12H IV PUSH 10/25/17 09:00 10/26/17 08:33 Sodium Bicarbonate 75 meq/Sodium Chloride 1,075 ml @ 150 mls/hr Q7H10M IV 10/25/17 20:00 10/26/17 05:39 Objective Remarks GENERAL: Older male resting in bed in no obvious distress. SKIN: Warm and dry. HEAD: Normocephalic. Nickolas complexion EYES: No injection or drainage. NECK: Supple, trachea midline. CARDIOVASCULAR: + S1/S2. No obvious murmurs. RESPIRATORY: Clear anteriorly. Breathing unlabored at rest. GASTROINTESTINAL: Abdomen soft, non-tender, nondistended. EXTREMITIES: No cyanosis, or edema. MUSCULOSKELETAL: Adequate muscle tone. NEUROLOGICAL: No obvious focal deficit. Awake, alert, and oriented x3. 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 He received presented in February 2015 when a melanoma versus removed from the tip of the nose. Unfortunately this progressed and he had a second surgery in May 2015 as it has grown back. In August 2017 he became acutely ill with memory problems and gait problems and was found to have metastatic disease to the brain. He is status post whole brain radiation therapy completed 2 weeks ago. Over the past several weeks he has had increased weakness fatigue and loss of appetite. He's also had increased vomiting. On admission he was found to have acute renal failure. Assessment Patient with metastatic melanoma to the brain status post immune therapy with nausea, vomiting, weakness, incontinence and now new renal failure. Plan 1. Discussed with Dr Styles; pt to start dialysis tomorrow for acute kidney injury 2. STRICT I/O's. 3. CASANDRA was originally suspected to be dehydration, however this is not likely the case as he has worsening creatinine despite fluid resuscitation. There is a very small possibility of autoimmune nephritis after receiving immunotherapy, however it is extremely uncommon to see this after only 1 cycle. Attending Statement The exam, history, and the medical decision-making described in the above note were completed with the assistance of the mid-level provider. I reviewed and agree with the findings presented. I attest that I had a [id number] encounter with the patient on the same day, and personally performed and documented my assessment and findings in the medical record. Feeling the same. +small amount of urine. Creatinine trended up higher. Nephrology is planning on starting hemodialysis. Continue supportive care. Erma East Oct 26, 2017 10:22 Elie Yusuf MD Oct 26, 2017 11:26
--- NOTE | 2017-10-26 11:17 | HHI.NPPN ---
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 I was called to see the patient because of very high BUN and creatinine. The patient denies any previous history of renal dysfunction, but when he came in his BUN was 93 and the creatinine was 8.2. Additional Remarks Patient is alert, no SOB, on room air, no nausea or vomiting. Review of Systems General Constitutional: Fatigue Cardiovascular Cardiac: BOURGEOIS Objective Data Data Vital Signs Date Time Temp Pulse Resp B/P (MAP) Pulse Ox O2 Delivery O2 Flow Rate FiO2 10/26/17 05:39 97.6 58 16 116/63 (80) 97 10/26/17 04:00 55 10/26/17 03:00 56 10/26/17 02:00 60 10/26/17 01:00 56 10/26/17 00:00 60 10/26/17 00:00 97.6 63 17 121/66 (84) 97 10/25/17 23:00 62 10/25/17 22:00 60 10/25/17 21:53 97.4 62 16 126/69 (88) 96 10/25/17 21:00 60 10/25/17 20:00 60 10/25/17 19:00 62 10/25/17 18:00 64 10/25/17 17:00 66 10/25/17 16:54 97.2 68 18 125/60 (81) 98 10/25/17 16:00 68 10/25/17 15:00 70 10/25/17 14:31 65 10/25/17 13:00 64 10/25/17 12:00 80 10/25/17 12:00 97.5 64 16 118/62 (80) 98 -: 10/26/17 0509 10/26/17 0509 Physical Exam General Appearance: No Acute Distress, Comfortable Eyes Eye Exam: Pupils Equal Neck Neck Exam: Neck Supple, Trachea Midline Pulmonary Resp Exam: Breath Sounds Equal, No Distress, Rhonchi, Decreased Bases Cardiology CV Exam: Regular, Normal Sinus Rhythm Gastrointestinal/Abdomen GI Exam: Soft, Non-Tender, Bowel Sounds Present Extremeties Extremities Exam: No Edema Neurologic Neuro Exam: Alert, Awake, Oriented Psychiatric Psych Exam: Appropriate Responses Assessment/Plan Assessment Summary: CASANDRA/Acute Renal Failure Electrolyte Assessment: Metabolic Acidosis Problem List: (1) Metastatic melanoma ICD Codes: C79.9 - Secondary malignant neoplasm of unspecified site Status: Acute (2) Anorexia ICD Codes: R63.0 - Anorexia (3) Generalized weakness ICD Codes: R53.1 - Weakness (4) Oral thrush ICD Codes: B37.0 - Candidal stomatitis (5) DM (diabetes mellitus) ICD Codes: E11.9 - Type 2 diabetes mellitus without complications (6) CASANDRA (acute kidney injury) ICD Codes: N17.9 - Acute kidney failure, unspecified Plan Patient has Acute kidney injury. Has Minimal proteinuria, Creatinine continue to increase. Most likely has CASANDRA due to ATN. Has low Hco3 on IVF with NaHco3. K is normal, Will need to start HD for increasing BUN and Creatinine. D/W the Patient, will need PermCath. Tien Styles MD Oct 26, 2017 11:17
[2017-10-26] MEDS ORDERED: EUCERIN CREAM 120 GM JAR TOPICAL PRN (11:30)
--- NOTE | 2017-10-26 13:12 | HHI.PR ---
Subjective Remarks Function has worsened. Dialysis planned. Patient has no new complaints. Objective Vital Signs Date Time Temp Pulse Resp B/P (MAP) Pulse Ox O2 Delivery O2 Flow Rate FiO2 10/26/17 08:00 97.6 55 16 119/60 (79) 99 10/26/17 05:39 97.6 58 16 116/63 (80) 97 10/26/17 04:00 55 10/26/17 03:00 56 10/26/17 02:00 60 10/26/17 01:00 56 10/26/17 00:00 60 10/26/17 00:00 97.6 63 17 121/66 (84) 97 10/25/17 23:00 62 10/25/17 22:00 60 10/25/17 21:53 97.4 62 16 126/69 (88) 96 10/25/17 21:00 60 10/25/17 20:00 60 10/25/17 19:00 62 10/25/17 18:00 64 10/25/17 17:00 66 10/25/17 16:54 97.2 68 18 125/60 (81) 98 10/25/17 16:00 68 10/25/17 15:00 70 10/25/17 14:31 65 I/O 10/25/17 10/25/17 10/25/17 10/26/17 10/26/17 10/26/17 07:00 15:00 23:00 07:00 15:00 23:00 Intake Total 600 ml 480 ml 180 ml Output Total 50 ml 100 ml Balance 550 ml 480 ml 80 ml Intake Oral 600 ml 480 ml 180 ml Output Urine Total 50 ml 100 ml # Bowel Movements 1 Result Diagram: 10/26/17 0509 10/26/17 0509 Objective Remarks GENERAL: NAD, A&Ox3 HEAD: Normocephalic. NECK: Supple, trachea midline. No lymphadenopathy. EYES: No scleral icterus. No injection or drainage. CARDIOVASCULAR: Regular rate and rhythm without murmurs, gallops, or rubs. RESPIRATORY: Breath sounds equal bilaterally. No accessory muscle use. GASTROINTESTINAL: Abdomen soft, non-tender, nondistended. MUSCULOSKELETAL: No cyanosis, or edema. SKIN: Warm and dry. Discoloration of the upper face and head secondary to radiation therapy NEURO: No focal neurological deficitis. A/P Problem List: (1) CASANDRA (acute kidney injury) ICD Code: N17.9 - Acute kidney failure, unspecified (2) DM (diabetes mellitus) ICD Code: E11.9 - Type 2 diabetes mellitus without complications (3) Acute renal failure ICD Code: N17.9 - Acute kidney failure, unspecified Status: Acute (4) Oral thrush ICD Code: B37.0 - Candidal stomatitis (5) Metastatic melanoma ICD Code: C79.9 - Secondary malignant neoplasm of unspecified site Status: Acute Assessment and Plan 72-year-old male admitted secondary to acute renal failure of unknown etiology. Etiology may be related to cancer, no gross pathology on renal ultrasound. Current plan is for dialysis. Continue to monitor renal function. Labs reviewed. Creatinine is worsening through time. Continue to monitor labs. Labs ordered for further monitoring. Metastatic melanoma Continue Keppra Continue Decadron Oncology following Acute renal failure Etiology uncertain Avoid nephrotoxins Nephrology consulted and following Oral thrush Anorexia Continue Diflucan Generalized weakness Likely related to cancer in treatments Acute renal failure could be contributory Physical therapy continued Diabetes mellitus type 2 Follow blood sugars Insulin sliding scale Diabetic diet DVT prophylaxis SCDs Problem Qualifiers (1) Acute renal failure: Qualified Codes: N17.9 - Acute kidney failure, unspecified Guicho Vance MD Oct 26, 2017 13:12
[2017-10-26] MEDS: cefTRIAXone INJ 1,000 MG in SODIUM CHLORIDE 0.9% INJ 100 ML IV SCH (20:01)
[2017-10-26] MEDS: FLUCONAZOLE 100 MG PREMIX BAG 50 ML IV SCH (20:49)
[2017-10-27] VITALS (26 sets, daily range): BP systolic 91–121; BP diastolic 49–73; PULSE 41–122; RESP 16–20; TEMP 96.5–98.6; O2SAT 46–98
[2017-10-27] MEDS: INSULIN ASPART SUPPLEMENTAL SCALE SQ SCH ×4 (08:00→22:29)
[2017-10-27] MEDS: FAMOTIDINE 20 MG/2 ML VIAL IV PUSH SCH ×2 (08:03→22:28)
[2017-10-27] MEDS: DEXAMETHASONE SOD PHOS 4 MG/ML VIAL IV PUSH SCH ×2 (08:03→22:22)
[2017-10-27] MEDS: SODIUM CHLORIDE 0.9% FLUSH 10 ML FLUSH IV FLUSH SCH ×2 (08:30→21:00)
[2017-10-27] MEDS: DOCUSATE SODIUM 50 MG/SENNA 8.6 MG TAB PO SCH ×2 (09:00→21:00)
[2017-10-27] MEDS ORDERED: VANCOMYCIN INJ 1,000 MG in SODIUM CHLOR 0.9% 250 ML INJ 250 ML IV SCH (09:15)
[2017-10-27 09:25] LABS: AUTOMATED NEUTROPHIL # 7.2 TH/MM3 (1.8-7.7); BASOPHIL % 0.2 % (0.0-2.0); HEMATOCRIT 30.5 % (39.0-51.0); HEMOGLOBIN 10.9 GM/DL (13.0-17.0); LYMPH % 17.9 % (9.0-44.0); LYMPHOCYTE # 1.7 TH/MM3 (1.0-4.8); MEAN CELL VOLUME 86.9 FL (80.0-100.0); MEAN CORPUSCULAR HGB CONC 35.6 % (32.0-36.0); MONO % 4.5 % (0.0-8.0); MONOCYTE # 0.4 TH/MM3 (0-0.9); NEUT % 77.4 % (16.0-70.0); PLATELET COUNT 171 TH/MM3 (150-450); RED BLOOD COUNT 3.51 MIL/MM3 (4.50-5.90); RED CELL DISTRIBUTION WIDTH 15.4 % (11.6-17.2); WHITE BLOOD COUNT 9.3 TH/MM3 (4.0-11.0)
[2017-10-27 10:17] LABS: ALBUMIN 2.2 GM/DL (3.4-5.0); CALCIUM 7.1 MG/DL (8.5-10.1); CALCIUM-PROTEIN CORRECTED 8.3 MG/DL (8.5-10.1); PHOSPHORUS 7.7 MG/DL (2.5-4.9); TOTAL PROTEIN 4.9 GM/DL (6.4-8.2)
[2017-10-27 10:18] LABS: BICARBONATE 18.7 MEQ/L (21.0-32.0); TOTAL BILIRUBIN ADULT 0.3 MG/DL (0.2-1.0)
[2017-10-27 10:26] LABS: CREATININE 10.18 MG/DL (0.60-1.30)
--- NOTE | 2017-10-27 10:57 | HHI.PR ---
Subjective Remarks in no acute distress. denies pain. no sob. no nausea or vomiting. Objective Vitals Vital Signs Date Time Temp Pulse Resp B/P (MAP) Pulse Ox O2 Delivery O2 Flow Rate FiO2 10/27/17 07:55 98.6 46 20 111/57 (75) 96 10/27/17 07:12 49 10/27/17 06:05 44 10/27/17 05:06 61 10/27/17 04:08 46 10/27/17 04:04 97.2 48 16 91/50 (64) 97 10/27/17 03:00 43 10/27/17 02:03 43 10/27/17 01:01 58 10/27/17 00:55 96.5 48 16 111/63 (79) 98 10/27/17 00:07 41 10/26/17 23:23 41 10/26/17 23:20 91/51 (64) 10/26/17 22:11 47 10/26/17 21:03 46 10/26/17 20:17 97.9 54 16 100/54 (69) 98 10/26/17 20:06 48 10/26/17 19:30 53 10/26/17 18:00 48 10/26/17 16:00 46 10/26/17 16:00 98.4 79 16 152/68 (96) 98 10/26/17 15:42 47 10/26/17 15:00 46 10/26/17 14:00 50 10/26/17 13:00 50 10/26/17 12:00 98.0 58 16 112/58 (76) 100 10/26/17 12:00 60 10/26/17 12:00 53 10/26/17 11:00 50 I/O 10/26/17 10/26/17 10/26/17 10/27/17 10/27/17 10/27/17 07:00 15:00 23:00 07:00 15:00 23:00 Intake Total 480 ml 180 ml 1455 ml 360 ml Output Total 100 ml 50 ml 300 ml Balance 480 ml 80 ml 1405 ml 60 ml Intake Oral 480 ml 180 ml 300 ml 360 ml IV Total 1155 ml Output Urine Total 100 ml 50 ml 300 ml # Bowel Movements 1 1 1 Result Diagram: 10/27/17 0900 2/12/18 0900 Imaging Last Impressions Head CT 10/24/17 1703 Signed Impressions: Service Date/Time: Tuesday, October 24, 2017 17:43 - CONCLUSION: 1. There is evidence of diffuse bilateral brain metastatic disease. There are several hyperdense masses which could be hemorrhagic masses. 2. No significant mass effect or midline shift. Mayo Baird MD Chest X-Ray 10/24/17 170 Signed Impressions: Service Date/Time: Tuesday, October 24, 2017 17:22 - CONCLUSION: Left lung masses as described above. No new findings. Shakir Kumar MD FACR Renal Ultrasound 10/24/17 0000 Signed Impressions: Service Date/Time: Tuesday, October 24, 2017 21:16 - CONCLUSION: 1. No evidence of hydronephrosis. 2. 3 mm calcification along the midpole the right kidney. This very represent a nonobstructing tiny renal stone. 3. Benign-appearing right renal cyst measuring 1.5 cm. 4. There is some thickening of the urinary bladder wall and some debris in the urinary bladder. Mayo Baird MD Objective Remarks GENERAL: This is a well-nourished, well-developed patient, in no apparent distress. CARDIOVASCULAR: Regular rate and regular rhythm without murmurs, gallops, or rubs. RESPIRATORY: Clear to auscultation. Breath sounds equal bilaterally. No wheezes , rales, or rhonchi. GASTROINTESTINAL: Abdomen soft, non-tender, nondistended. Normal, active bowel sounds MUSCULOSKELETAL: Extremities without clubbing, cyanosis, or edema. NEURO: Alert & Oriented x4 to person, place, time, situation. Moves all ext x4 Medications and IVs Inpatient Medications Bisacodyl (Dulcolax Supp) 10 mg DAILY PRN RECTAL SEVERE CONSITIPATION; Start at 19:30 Ceftriaxone Sodium 1000 mg/ Sodium Chloride 100 ml @ 200 mls/hr Q24H IV Last administered on 10/26/17at 20:01; Start 10/24/17 at 20:00 Dexamethasone Sodium Phosphate (Decadron Inj) 2 mg Q12HR IV PUSH Last administered on 10/27/17at 08:03; Start 10/24/17 at 21:00 Dextrose (D50w (Vial) Inj) 50 ml UNSCH PRN IV PUSH HYPOGLYCEMIA-SEE COMMENTS; Start 10/24/17 at 21:15 Famotidine (Pepcid Inj) 10 mg Q12H IV PUSH Last administered on 10/27/17at 08:03 ; Start 10/25/17 at 09:00 Fluconazole/ Sodium Chloride 100 ml @ 100 mls/hr ONCE ONCE IV Last administered on 10/24/17at 00:37; Start 10/24/17 at 21:00; Stop 10/24/17 at 21:59; Status DC Glucagon (Glucagon Inj) 1 mg UNSCH PRN OTHER HYPOGLYCEMIA-SEE COMMENTS; Start 10/24/17 at 21:15 Insulin Aspart (NovoLOG SUPPLEMENTAL SCALE) 1 ACHS SLIDING SCALE SQ Last administered on 10/26/17at 20:36; Start 10/25/17 at 08:00 Lactulose (Lactulose Liq) 30 ml DAILY PRN PO SEVERE CONSITIPATION; Start at 19:30 Magnesium Hydroxide (Milk Of Magnesia Liq) 30 ml Q12H PRN PO Mild constipation ; Start 10/24/17 at 19:30 Morphine Sulfate (Morphine Inj) 2 mg Q3H PRN IV PUSH Pain 6-10; Start 10/24/17 at 19:30 Multi-Ingredient Ointment (Eucerin Cream) 1 applic Q6H PRN TOPICAL DRY SKIN; Start 10/26/17 at 11:30 Ondansetron HCl (Zofran Inj) 4 mg Q6H PRN IVP NAUSEA OR VOMITING; Start at 19:30 Senna/Docusate Sodium (Nevin-Colace) 1 tab BID PO Last administered on at 21:58; Start 10/24/17 at 21:00 Sennosides (Senokot) 17.2 mg Q12H PRN PO Moderate constipation; Start 10/24/17 at 19:30 Sodium Bicarbonate 75 meq/Sodium Chloride 1,075 ml @ 75 mls/hr [id number] IV Last administered on 10/26/17at 20:36; Start 10/25/17 at 20:00 Sodium Chloride (NS Flush) 2 ml BID IV FLUSH Last administered on 10/27/17at 08: 30; Start 10/24/17 at 21:00 Temazepam (Restoril) 15 mg HS PRN PO insomnia Last administered on 10/26/17at 20 :45; Start 10/25/17 at 12:30 Vancomycin HCl 1000 mg/Sodium Chloride 250 ml @ 250 mls/hr TEST ENGINEER NUCLEAR EQUIPMENT IV ; Start 10/27/17 at 09:15; Stop 10/30/17 at 09:14 A/P Problem List: (1) Metastatic melanoma ICD Code: C79.9 - Secondary malignant neoplasm of unspecified site Status: Acute (2) CASANDRA (acute kidney injury) ICD Code: N17.9 - Acute kidney failure, unspecified (3) Generalized weakness ICD Code: R53.1 - Weakness (4) Anorexia ICD Code: R63.0 - Anorexia (5) Oral thrush ICD Code: B37.0 - Candidal stomatitis (6) DM (diabetes mellitus) ICD Code: E11.9 - Type 2 diabetes mellitus without complications Assessment and Plan Metastatic melanoma Continue Decadron Oncology following Acute renal failure Etiology uncertain Avoid nephrotoxins IR consulted for permacath placement HD to be initiated soon. Nephrology following. Oral thrush Anorexia Continue Diflucan Generalized weakness Likely related to cancer in treatments Acute renal failure could be contributory Physical therapy continued Diabetes mellitus type 2 Follow blood sugars Insulin sliding scale Diabetic diet DVT prophylaxis SCDs Discharge Planning for Perma cath placement; HD to be initiated soon. not ready for discharge. Alycia Fowler MD Oct 27, 2017 10:57
[2017-10-27] MEDS ORDERED: MIDAZOLAM HCL 2 MG/2 ML VIAL ONE (11:19)
[2017-10-27] MEDS ORDERED: HEPARIN SODIUM - IV 2,000 UNITS/2 ML VIAL IV FLUSH PRN (12:00)
[2017-10-27] MEDS ORDERED: SODIUM CHLORIDE 0.9% FLUSH 10 ML FLUSH IV FLUSH PRN ×2 (12:00→14:45)
--- NOTE | 2017-10-27 12:02 | PD.RAD ---
Post Procedure Progress Note Pre Procedure Diagnosis: (1) CASANDRA (acute kidney injury) (2) Acute renal failure Post Procedure Diagnosis: (1) Acute renal failure (2) CASANDRA (acute kidney injury) Procedure Date: Oct 27, 2017 Supervising Radiologist: Guicho Kumar Estimated blood loss: 2cc Anesthesia: Local, Conscious Sedation Plan of Activity Patient to Unit: [facility] Patient Condition: Fair Additional Comments: Right IJ PermCath placed without difficulty. Catheter position verified. Catheter flushes and aspirates well. Full dictated report to follow in PACS See PACS Report for procedural detail/treatment Guicho Kumar MD Oct 27, 2017 12:02
--- NOTE | 2017-10-27 13:32 | RADRPT ---
EXAM DATE/TIME: 10/27/2017 11:54 [facility] COMPARISON: No previous studies available for comparison. INDICATIONS : Patient presents with acute renal failure in need of a perm cath placement. 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 Vancomycin within 2 hours of procedure, Ancef (or alternative) within 1 hour of procedure. DEVICE: 1. 15 [place] dual lumen 23 cm Cade catheter II PROCEDURE : 1. Ultrasound-guided venipuncture. 2. PermaCath placement. 3. Conscious sedation with continuous EKG and oximetry monitoring. The risks, benefits and alternatives to the procedure were explained and verbal and written consent w as obtained. The risk included but were not limited to bleeding, infection an emergent surgery. The patient received 1 g of vancomycin prior to the procedure. Ancef was not given secondary to a pen icillin allergy. The patient was transferred to the angiography suite. The site was prepped in sterile fashion. Full sterile technique was used, including cap, mask, sterile gloves and gown and a large sterile sheet. Hand hygiene and 2% chlorhexidine and/or betadine/alcohol prep was utilized per protocol for cutaneou s antisepsis. Sterile gel and sterile probe cover were utilized for ultrasound guidance. The skin a nd subcutaneous tissues were infiltrated with local anesthetic solution. With ultrasound and fluoroscopic guidance a dermatotomy was created over the right internal jugular v ein. The right internal jugular vein was accessed under direct ultrasound guidance using the micropun cture technique. The micropuncture set was exchanged for a 0.035 angle Glidewire. The permacath was t unneled retrograde from the venotomy site across the right chest wall. The catheter was assembled. The venotomy tract was dilated. A 14 [place] valved peel-away sheath was advanced into the superior ve na cava. The catheter was advanced through the sheath and positioned within the superior vena cava wi thout difficulty. Position was confirmed with direct fluoroscopic visualization. The catheter flushed and aspirated well. The catheter was locked with the appropriate volume of heparin. Conscious sedation was performed with the prescribed dosages and duration as above in the presence of an independent trained radiology nurse to assist in the monitoring of the patient. EKG and oximetry remained stable throughout the procedure. The patient tolerated the procedure well and there were n o complications. The patient was sent to post anesthesia recovery in stable condition. CONCLUSION: Uncomplicated PermaCath placement as above. Guicho Kumar MD on October 27, 2017 at 13:26 Board Certified Radiologist. This report was verified electronically.
[2017-10-27] MEDS ORDERED: SODIUM CHLOR 0.9% 1000 ML INJ 1,000 ML IV PRN (14:38)
[2017-10-27] MEDS ORDERED: SODIUM CHLOR 0.9% 1000 ML INJ 1,000 ML OTHER PRN ×2 (14:38)
[2017-10-27] MEDS ORDERED: ACETAMINOPHEN 325 MG TAB PO PRN (14:45)
[2017-10-27] MEDS ORDERED: ONDANSETRON HCL 4 MG/2 ML VIAL IV PUSH PRN (14:45)
[2017-10-27] MEDS ORDERED: ALBUMIN 25% INJ 100 ML IV PRN (14:45)
[2017-10-27] MEDS ORDERED: NITROGLYCERIN 0.4 MG SL 25 TABS/BTL SL PRN (14:45)
[2017-10-27] MEDS ORDERED: HEPARIN SODIUM - IV 10,000 UNITS/10 ML VIAL IV FLUSH PRN (14:45)
[2017-10-27] MEDS ORDERED: cloNIDine HCL 0.1 MG TAB PO PRN (14:45)
[2017-10-27] MEDS ORDERED: MANNITOL 12.5 GM/50 ML VIAL IV PRN (14:45)
[2017-10-27] MEDS ORDERED: GELATIN 12 MM/7 MM FOAM TOP PRN (14:45)
--- NOTE | 2017-10-27 15:32 | PD.ONC.PN ---
Subjective Subjective Remarks remains weak and frail and at times confused. has had transient hallucination Objective Data Date Time Temp Pulse Resp B/P (MAP) Pulse Ox O2 Delivery O2 Flow Rate FiO2 10/27/17 13:30 48 108/55 (72) 10/27/17 13:00 45 101/49 (66) 10/27/17 12:45 44 103/50 (67) 10/27/17 12:30 46 16 119/64 (82) 46 10/27/17 12:15 97.8 46 16 117/62 (80) 46 10/27/17 11:25 97.6 45 20 112/54 (73) 10/27/17 08:00 44 10/27/17 07:55 98.6 46 20 111/57 (75) 96 10/27/17 07:12 49 10/27/17 06:05 44 10/27/17 05:06 61 10/27/17 04:08 46 10/27/17 04:04 97.2 48 16 91/50 (64) 97 10/27/17 03:00 43 10/27/17 02:03 43 10/27/17 01:01 58 10/27/17 00:55 96.5 48 16 111/63 (79) 98 10/27/17 00:07 41 10/26/17 23:23 41 10/26/17 23:20 91/51 (64) 10/26/17 22:11 47 10/26/17 21:03 46 10/26/17 20:17 97.9 54 16 100/54 (69) 98 10/26/17 20:06 48 10/26/17 19:30 53 10/26/17 18:00 48 10/26/17 16:00 46 10/26/17 16:00 98.4 79 16 152/68 (96) 98 10/26/17 15:42 47 10/27/17 10/27/17 10/27/17 07:00 15:00 23:00 Intake Total 360 ml Output Total 300 ml Balance 60 ml Result Diagram: 10/27/17 0900 10/27/17 0900 Laboratory Results Laboratory Tests Test 10/27/17 09:00 White Blood Count 9.3 TH/MM3 Red Blood Count 3.51 MIL/MM3 Hemoglobin 10.9 GM/DL Hematocrit 30.5 % Mean Corpuscular Volume 86.9 FL Mean Corpuscular Hemoglobin 31.0 PG Mean Corpuscular Hemoglobin Concent 35.6 % Red Cell Distribution Width 15.4 % Platelet Count 171 TH/MM3 Mean Platelet Volume 8.0 FL Neutrophils (%) (Auto) 77.4 % Lymphocytes (%) (Auto) 17.9 % Monocytes (%) (Auto) 4.5 % Eosinophils (%) (Auto) 0.0 % Basophils (%) (Auto) 0.2 % Neutrophils # (Auto) 7.2 TH/MM3 Lymphocytes # (Auto) 1.7 TH/MM3 Monocytes # (Auto) 0.4 TH/MM3 Eosinophils # (Auto) 0.0 TH/MM3 Basophils # (Auto) 0.0 TH/MM3 CBC Comment DIFF FINAL Differential Comment Blood Urea Nitrogen 148 MG/DL Creatinine 10.18 MG/DL Random Glucose 198 MG/DL Total Protein 4.9 GM/DL Albumin 2.2 GM/DL Calcium Level 7.1 MG/DL Phosphorus Level 7.7 MG/DL Uric Acid 9.9 MG/DL Alkaline Phosphatase 47 U/L Aspartate Amino Transf (AST/SGOT) 29 U/L Alanine Aminotransferase (ALT/SGPT) 54 U/L Total Bilirubin 0.3 MG/DL Sodium Level 136 MEQ/L Potassium Level 4.7 MEQ/L Chloride Level 98 MEQ/L Carbon Dioxide Level 18.7 MEQ/L Anion Gap 19 MEQ/L Estimat Glomerular Filtration Rate 5 ML/MIN Protein Corrected Calcium 8.3 MG/DL Total Creatine Kinase 87 U/L Imaging Studies Last 24 hours Impressions Catheter Placement X-Ray 10/27/17 0600 Impressions: Service Date/Time: Friday, October 27, 2017 11:54 - CONCLUSION: Uncomplicated PermaCath placement as above. Guicho Kumar MD Administered Medications Medications (Trade) Dose Ordered Sig/Benson Route PRN Reason Start Time Stop Time Status Last Admin Dose Admin Dexamethasone Sodium Phosphate (Decadron Inj) 2 mg Q12HR IV PUSH 10/24/17 21:00 10/27/17 08:03 Ceftriaxone Sodium 1000 mg/ Sodium Chloride 100 ml @ 200 mls/hr Q24H IV 10/24/17 20:00 10/26/17 20:01 Sodium Chloride (NS Flush) 2 ml BID IV FLUSH 10/24/17 21:00 10/27/17 08:30 Senna/Docusate Sodium (Nevin-Colace) 1 tab BID PO 10/24/17 21:00 10/25/17 21:58 Fluconazole/ Sodium Chloride 50 ml @ 50 mls/hr Q24H IV 10/25/17 21:00 10/26/17 20:49 Insulin Aspart (NovoLOG SUPPLEMENTAL SCALE) 1 ACHS SLIDING SCALE SQ 10/25/17 08:00 10/26/17 20:36 Famotidine (Pepcid Inj) 10 mg Q12H IV PUSH 10/25/17 09:00 10/27/17 08:03 Temazepam (Restoril) 15 mg HS PRN PO insomnia 10/25/17 12:30 10/26/17 20:45 Sodium Bicarbonate 75 meq/Sodium Chloride 1,075 ml @ 75 mls/hr [id number] IV 10/25/17 20:00 10/26/17 20:36 Vancomycin HCl 1000 mg/Sodium Chloride 250 ml @ 250 mls/hr HAND TUBE BENDER IV 10/27/17 09:15 10/30/17 09:14 10/27/17 10:31 Objective Remarks GENERAL: chronically ill appearing male. SKIN: Warm and dry. HEAD: skin dry from radiation EYES: No scleral icterus. No injection or drainage. NECK: Supple, trachea midline. No JVD or lymphadenopathy. LYMPHATIC: No adenopathy. CARDIOVASCULAR: Regular rate and rhythm without murmurs. RESPIRATORY: Breath sounds equal bilaterally. No accessory muscle use. GASTROINTESTINAL: Abdomen soft, non-tender, nondistended. EXTREMITIES: No cyanosis, or edema. MUSCULOSKELETAL: Adequate muscle tone. NEUROLOGICAL: No obvious focal deficit. Awake, alert, and oriented x2, not sure he was in hospital momentarily. PSYCHIATRIC: slight confusion. 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 He received presented in February 2015 when a melanoma versus removed from the tip of the nose. Unfortunately this progressed and he had a second surgery in May 2015 as it has grown back. In August 2017 he became acutely ill with memory problems and gait problems and was found to have metastatic disease to the brain. He is status post whole brain radiation therapy completed 2 weeks ago. Over the past several weeks he has had increased weakness fatigue and loss of appetite. He's also had increased vomiting. On admission he was found to have acute renal failure. Assessment metastatic melanoma to brain and lungs with with acute renal failure. Plan 1: patient has worsening creatinine in spite of hydration making it unlikely that dehydration explains renal failure. After doing literature review renal dysfunction occurs infrequently, in less then 2% of individuals treated with immune therapy and average time to event is 90 days and not less then 20 days making it highly unlikely that the immunotherapy he received 1 week prior to discovering the renal failure explains what has happened. It must have started weeks ago. I spoke with Dr. Styles and it is not clear why Mr. Mello's renal function is worsening 2: will proceed with dialysis and if no improvement probable renal bx after 2-3 treatments. Above discussed with patient's son and [place]. Jorge L Randhawa MD Oct 27, 2017 15:32
--- NOTE | 2017-10-27 16:52 | HHI.NPPN ---
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 I was called to see the patient because of very high BUN and creatinine. The patient denies any previous history of renal dysfunction, but when he came in his BUN was 93 and the creatinine was 8.2. Additional Remarks Patient is alert, no SOB, no nausea or vomiting, no pain at PermCath site. Review of Systems General Constitutional: Fatigue Cardiovascular Cardiac: BOURGEOIS Objective Data Data 10/27/17 10/28/17 19:00 07:00 Intake Total 490 ml Output Total 500 ml Balance -10 ml Intake Oral 240 ml IV Total 250 ml Output Urine Total 400 ml Stool Total 100 ml # Voids 2 # Bowel Movements 1 Vital Signs Date Time Temp Pulse Resp B/P (MAP) Pulse Ox O2 Delivery O2 Flow Rate FiO2 10/27/17 15:35 96.5 47 18 111/62 (78) 98 10/27/17 13:30 48 108/55 (72) 10/27/17 13:00 45 101/49 (66) 10/27/17 12:45 44 103/50 (67) 10/27/17 12:30 46 16 119/64 (82) 46 10/27/17 12:15 97.8 46 16 117/62 (80) 46 10/27/17 11:25 97.6 45 20 112/54 (73) 10/27/17 08:00 44 10/27/17 07:55 98.6 46 20 111/57 (75) 96 10/27/17 07:12 49 10/27/17 06:05 44 10/27/17 05:06 61 10/27/17 04:08 46 10/27/17 04:04 97.2 48 16 91/50 (64) 97 10/27/17 03:00 43 10/27/17 02:03 43 10/27/17 01:01 58 10/27/17 00:55 96.5 48 16 111/63 (79) 98 10/27/17 00:07 41 10/26/17 23:23 41 10/26/17 23:20 91/51 (64) 10/26/17 22:11 47 10/26/17 21:03 46 10/26/17 20:17 97.9 54 16 100/54 (69) 98 10/26/17 20:06 48 10/26/17 19:30 53 10/26/17 18:00 48 -: 10/27/17 0900 10/27/17 0900 Physical Exam General Appearance: No Acute Distress, Comfortable Eyes Eye Exam: Pupils Equal Neck Neck Exam: Neck Supple, Trachea Midline Pulmonary Resp Exam: Breath Sounds Equal, No Distress, Rhonchi, Decreased Bases Cardiology CV Exam: Regular, Normal Sinus Rhythm Gastrointestinal/Abdomen GI Exam: Soft, Non-Tender, Bowel Sounds Present Extremeties Extremities Exam: No Edema Neurologic Neuro Exam: Alert, Awake, Oriented Psychiatric Psych Exam: Appropriate Responses Assessment/Plan Assessment Summary: CASANDRA/Acute Renal Failure Electrolyte Assessment: Metabolic Acidosis Problem List: (1) Metastatic melanoma ICD Codes: C79.9 - Secondary malignant neoplasm of unspecified site Status: Acute (2) Anorexia ICD Codes: R63.0 - Anorexia (3) Generalized weakness ICD Codes: R53.1 - Weakness (4) Oral thrush ICD Codes: B37.0 - Candidal stomatitis (5) DM (diabetes mellitus) ICD Codes: E11.9 - Type 2 diabetes mellitus without complications (6) CASANDRA (acute kidney injury) ICD Codes: N17.9 - Acute kidney failure, unspecified Plan Patient has Acute kidney injury. Has Minimal proteinuria, Creatinine continue to increase. Most likely has CASANDRA due to ATN. Has low Hco3 on IVF with NaHco3. K is normal, to start HD for increasing BUN and Creatinine. PermCath done, to start HD today. HD again in AM and will get Renal Biopsy on Fri. Tien Styles MD Oct 27, 2017 16:52
[2017-10-27] MEDS: SODIUM BICARBONATE 8.4% INJ 75 MEQ in SODIUM CHLOR 0.45% 1000 ML INJ 1,000 ML IV SCH (18:01)
[2017-10-27] MEDS: FLUCONAZOLE 100 MG PREMIX BAG 50 ML IV SCH (22:22)
[2017-10-27] MEDS: cefTRIAXone INJ 1,000 MG in SODIUM CHLORIDE 0.9% INJ 100 ML IV SCH (22:29)
[2017-10-28] VITALS (19 sets, daily range): BP systolic 100–127; BP diastolic 52–65; PULSE 38–65; RESP 16–20; TEMP 97–98.6; O2SAT 96–97
[2017-10-28] MEDS: INSULIN ASPART SUPPLEMENTAL SCALE SQ SCH ×4 (08:00→16:59)
[2017-10-28] MEDS: SODIUM CHLORIDE 0.9% FLUSH 10 ML FLUSH IV FLUSH SCH ×2 (09:00→20:04)
[2017-10-28] MEDS: DOCUSATE SODIUM 50 MG/SENNA 8.6 MG TAB PO SCH ×2 (09:00→20:05)
[2017-10-28 11:25] LABS: HEPATITIS A AB IGM NEGATIVE (NEGATIVE); HEPATITIS B CORE AB IGM NEGATIVE (NEGATIVE); HEPATITIS B SURFACE ANTIGEN NEGATIVE (NEGATIVE); HEPATITIS C AB IgG NEGATIVE (NEGATIVE)
--- NOTE | 2017-10-28 12:25 | PD.ONC.PN ---
Subjective Subjective Remarks wanted to go home today indicating that he can get better if he exercises at home. Knows he is confused at times Objective Data Date Time Temp Pulse Resp B/P (MAP) Pulse Ox O2 Delivery O2 Flow Rate FiO2 10/28/17 07:43 98.6 53 18 121/65 (83) 96 10/28/17 04:33 97.0 52 18 120/62 (81) 97 10/28/17 04:04 54 10/28/17 03:00 48 10/28/17 02:00 38 10/28/17 01:00 46 10/28/17 00:44 97.0 42 16 100/52 (68) 96 10/28/17 00:08 42 10/28/17 00:00 44 10/27/17 22:30 97.0 45 18 115/65 (82) 98 10/27/17 22:13 97.0 45 16 121/73 (89) 98 10/27/17 19:00 72 10/27/17 16:52 55 10/27/17 15:35 96.5 47 18 111/62 (78) 98 10/27/17 13:30 48 108/55 (72) 10/27/17 13:00 45 101/49 (66) 10/27/17 12:45 44 103/50 (67) 10/27/17 12:30 46 16 119/64 (82) 46 10/27/17 12:15 97.8 46 16 117/62 (80) 46 10/28/17 10/28/17 10/28/17 07:00 15:00 23:00 Intake Total 150 ml Output Total 450 ml 2900 ml Balance -300 ml -2900 ml Result Diagram: 10/27/17 0900 10/27/17 0900 Laboratory Results Laboratory Tests Test 10/27/17 20:05 Hepatitis A IgM Antibody NEGATIVE Hepatitis B Surface Antigen NEGATIVE Hepatitis B Core IgM Antibody NEGATIVE Hepatitis C Antibody NEGATIVE Administered Medications Medications (Trade) Dose Ordered Sig/Benson Route PRN Reason Start Time Stop Time Status Last Admin Dose Admin Dexamethasone Sodium Phosphate (Decadron Inj) 2 mg Q12HR IV PUSH 10/24/17 21:00 10/27/17 22:22 Ceftriaxone Sodium 1000 mg/ Sodium Chloride 100 ml @ 200 mls/hr Q24H IV 10/24/17 20:00 10/27/17 22:29 Sodium Chloride (NS Flush) 2 ml BID IV FLUSH 10/24/17 21:00 10/27/17 08:30 Senna/Docusate Sodium (Nevin-Colace) 1 tab BID PO 10/24/17 21:00 10/25/17 21:58 Fluconazole/ Sodium Chloride 50 ml @ 50 mls/hr Q24H IV 10/25/17 21:00 10/27/17 22:22 Insulin Aspart (NovoLOG SUPPLEMENTAL SCALE) 1 ACHS SLIDING SCALE SQ 10/25/17 08:00 10/27/17 22:29 Famotidine (Pepcid Inj) 10 mg Q12H IV PUSH 10/25/17 09:00 10/27/17 22:28 Temazepam (Restoril) 15 mg HS PRN PO insomnia 10/25/17 12:30 10/26/17 20:45 Sodium Bicarbonate 75 meq/Sodium Chloride 1,075 ml @ 75 mls/hr [id number] IV 10/25/17 20:00 10/27/17 18:01 Vancomycin HCl 1000 mg/Sodium Chloride 250 ml @ 250 mls/hr HEAD CHARRER IV 10/27/17 09:15 10/30/17 09:14 10/27/17 10:31 Objective Remarks GENERAL: Well-nourished, well-developed patient. SKIN: Warm and dry. HEAD: scalp dry from radiation. EYES: No scleral icterus. No injection or drainage. NECK: Supple, trachea midline. No JVD or lymphadenopathy. LYMPHATIC: No adenopathy. CARDIOVASCULAR: Regular rate and rhythm without murmurs. RESPIRATORY: Breath sounds equal bilaterally. No accessory muscle use. GASTROINTESTINAL: Abdomen soft, non-tender, nondistended. EXTREMITIES: No cyanosis, or edema. MUSCULOSKELETAL: Adequate muscle tone. NEUROLOGICAL: No obvious focal deficit. Awake, alert, and oriented x3. has trouble focusing. PSYCHIATRIC: at times frustrated and wants to go home. Assessment/Plan Assessment metastatic melanoma to brain and lungs with with acute renal failure. ON 2017 NA 140, K 4.2, CREATININE 0.99, BUN 27 Plan 1: RENAL FAILURE: onset is new and I do not know what caused this. I persuaded patient to allow for several treatments with dialysis as this may prevent and allow him to think more clearly. He is agreeable. 2: metastatic melanoma- Treatment on hold until renal issue resolved. may need renal bx. Discussed with renal and primary care Jorge L Randhawa MD Oct 28, 2017 12:25
[2017-10-28] MEDS: DEXAMETHASONE SOD PHOS 4 MG/ML VIAL IV PUSH SCH ×2 (13:11→20:04)
[2017-10-28] MEDS: FAMOTIDINE 20 MG/2 ML VIAL IV PUSH SCH ×2 (13:11→20:04)
--- NOTE | 2017-10-28 13:40 | HHI.PR ---
Subjective Remarks in no acute distress. had his HD today. no sob. denies pain. d/w the RN at the bedside. Objective Vitals Vital Signs Date Time Temp Pulse Resp B/P (MAP) Pulse Ox O2 Delivery O2 Flow Rate FiO2 10/28/17 12:55 97.6 54 18 108/55 (72) 10/28/17 07:43 98.6 53 18 121/65 (83) 96 10/28/17 04:33 97.0 52 18 120/62 (81) 97 10/28/17 04:04 54 10/28/17 03:00 48 10/28/17 02:00 38 10/28/17 01:00 46 10/28/17 00:44 97.0 42 16 100/52 (68) 96 10/28/17 00:08 42 10/28/17 00:00 44 10/27/17 22:30 97.0 45 18 115/65 (82) 98 10/27/17 22:13 97.0 45 16 121/73 (89) 98 10/27/17 19:00 72 10/27/17 16:52 55 10/27/17 15:35 96.5 47 18 111/62 (78) 98 I/O 10/27/17 10/27/17 10/27/17 10/28/17 10/28/17 10/28/17 07:00 15:00 23:00 07:00 15:00 23:00 Intake Total 360 ml 250 ml 480 ml 150 ml 1000 ml Output Total 300 ml 2100 ml 450 ml 2900 ml Balance 60 ml 250 ml -1620 ml -300 ml -1900 ml Intake Oral 360 ml 480 ml 150 ml IV Total 250 ml 1000 ml Output Urine Total 300 ml 500 ml 450 ml Stool Total 100 ml Hemodialysis 1500 ml 2900 ml # Voids 2 # Bowel Movements 1 1 Result Diagram: 10/27/17 0900 10/27/17 09 Imaging Last Impressions Catheter Placement X-Ray 10/27/17 06 Signed Impressions: Service Date/Time: Friday, October 27, 2017 11:54 - CONCLUSION: Uncomplicated PermaCath placement as above. Guicho Kumar MD Head CT 10/24/17 1703 Signed Impressions: Service Date/Time: Tuesday, October 24, 2017 17:43 - CONCLUSION: 1. There is evidence of diffuse bilateral brain metastatic disease. There are several hyperdense masses which could be hemorrhagic masses. 2. No significant mass effect or midline shift. Mayo Baird MD Chest X-Ray 10/24/17 1703 Signed Impressions: Service Date/Time: Tuesday, October 24, 2017 17:22 - CONCLUSION: Left lung masses as described above. No new findings. Shakir Kumar MD FACR Renal Ultrasound 10/24/17 0000 Signed Impressions: Service Date/Time: Tuesday, October 24, 2017 21:16 - CONCLUSION: 1. No evidence of hydronephrosis. 2. 3 mm calcification along the midpole the right kidney. This very represent a nonobstructing tiny renal stone. 3. Benign-appearing right renal cyst measuring 1.5 cm. 4. There is some thickening of the urinary bladder wall and some debris in the urinary bladder. Mayo Baird MD Objective Remarks GENERAL: This is a well-nourished, well-developed patient, in no apparent distress. CARDIOVASCULAR: Regular rate and regular rhythm without murmurs, gallops, or rubs. RESPIRATORY: Clear to auscultation. Breath sounds equal bilaterally. No wheezes , rales, or rhonchi. GASTROINTESTINAL: Abdomen soft, non-tender, nondistended. Normal, active bowel sounds MUSCULOSKELETAL: Extremities without clubbing, cyanosis, or edema. NEURO: Alert & Oriented x4 to person, place, time, situation. Moves all ext x4 Procedures perma-cath placement Medications and IVs Inpatient Medications Acetaminophen (Tylenol) 650 mg UNSCH PRN PO for headach, pain, temp > 101F; Start 10/27/17 at 14:45; Stop 10/27/17 at 14:45; Status DC Albumin Human 100 ml @ 60 mls/hr UNSCH PRN IV WITH DIALYSIS; Start 10/27/17 at 14:45 Bisacodyl (Dulcolax Supp) 10 mg DAILY PRN RECTAL SEVERE CONSITIPATION; Start at 19:30 Ceftriaxone Sodium 1000 mg/ Sodium Chloride 100 ml @ 200 mls/hr Q24H IV Last administered on 10/27/17at 22:29; Start 10/24/17 at 20:00 Clonidine (Catapres) 0.1 mg UNSCH PRN PO for BP > 180/100 X 2 readings; Start 10/27/17 at 14:45 Dexamethasone Sodium Phosphate (Decadron Inj) 2 mg Q12HR IV PUSH Last administered on 10/28/17at 13:11; Start 10/24/17 at 21:00 Dextrose (D50w (Vial) Inj) 50 ml UNSCH PRN IV PUSH HYPOGLYCEMIA-SEE COMMENTS; Start 10/24/17 at 21:15 Diphenhydramine HCl (Benadryl) 25 mg UNSCH PRN PO for hives/itching/anaphylaxis ; Start 10/27/17 at 14:45 Famotidine (Pepcid Inj) 10 mg Q12H IV PUSH Last administered on 10/28/17at 13:11 ; Start 10/25/17 at 09:00 Fluconazole/ Sodium Chloride 100 ml @ 100 mls/hr ONCE ONCE IV Last administered on 10/24/17at 00:37; Start 10/24/17 at 21:00; Stop 10/24/17 at 21:59; Status DC Gelatin (Gelfoam 12 Mm/7 Mm Top) 1 foam UNSCH PRN TOP SEE LABEL COMMENTS; Start 10/27/17 at 14:45 Gentamicin Sulfate (Gentamicin Inj) 20 mg UNSCH PRN OTHER WITH DIALYSIS; Start 10/27/17 at 14:45 Glucagon (Glucagon Inj) 1 mg UNSCH PRN OTHER HYPOGLYCEMIA-SEE COMMENTS; Start 10/24/17 at 21:15 Heparin Sodium (Porcine) (Heparin Inj) UNSCH PRN .XX WITH DIALYSIS; Start 09/01 at 14:45 Insulin Aspart (NovoLOG SUPPLEMENTAL SCALE) 1 ACHS SLIDING SCALE SQ Last administered on 10/27/17at 22:29; Start 10/25/17 at 08:00 Lactulose (Lactulose Liq) 30 ml DAILY PRN PO SEVERE CONSITIPATION; Start at 19:30 Magnesium Hydroxide (Milk Of Magnesia Liq) 30 ml Q12H PRN PO Mild constipation ; Start 10/24/17 at 19:30 Mannitol (Mannitol Inj) 12.5 gm UNSCH PRN IV WITH DIALYSIS; Start 10/27/17 at 14:45 Morphine Sulfate (Morphine Inj) 2 mg Q3H PRN IV PUSH Pain 6-10; Start 10/24/17 at 19:30 Multi-Ingredient Ointment (Eucerin Cream) 1 applic Q6H PRN TOPICAL DRY SKIN; Start 10/26/17 at 11:30 Nitroglycerin (Nitrostat Sl) 0.4 mg UNSCH PRN SL CHEST PAIN; Start 10/27/17 at 14:45 Ondansetron HCl (Zofran Inj) 4 mg UNSCH PRN IV PUSH WITH DIALYSIS; Start at 14:45 Senna/Docusate Sodium (Nevin-Colace) 1 tab BID PO Last administered on at 21:58; Start 10/24/17 at 21:00 Sennosides (Senokot) 17.2 mg Q12H PRN PO Moderate constipation; Start 10/24/17 at 19:30 Sodium Bicarbonate 75 meq/Sodium Chloride 1,075 ml @ 75 mls/hr [id number] IV Last administered on 10/27/17at 18:01; Start 10/25/17 at 20:00; Stop 10/28/17 at 12:39; Status DC Sodium Chloride (NS Flush) 5 ml UNSCH PRN IV FLUSH WITH DIALYSIS; Start at 14:45 Temazepam (Restoril) 15 mg HS PRN PO insomnia Last administered on 10/26/17at 20 :45; Start 10/25/17 at 12:30 Vancomycin HCl 1000 mg/Sodium Chloride 250 ml @ 250 mls/hr ALARM OPERATOR IV Last administered on 10/27/17at 10:31; Start 10/27/17 at 09:15; Stop 10/30/17 at 09:14 A/P Problem List: (1) Metastatic melanoma ICD Code: C79.9 - Secondary malignant neoplasm of unspecified site Status: Acute (2) CASANDRA (acute kidney injury) ICD Code: N17.9 - Acute kidney failure, unspecified (3) Generalized weakness ICD Code: R53.1 - Weakness (4) Anorexia ICD Code: R63.0 - Anorexia (5) Oral thrush ICD Code: B37.0 - Candidal stomatitis (6) DM (diabetes mellitus) ICD Code: E11.9 - Type 2 diabetes mellitus without complications Assessment and Plan Metastatic melanoma Continue Decadron Oncology following Acute renal failure Etiology uncertain Avoid nephrotoxins s/p perma-cath placement HD initiated. might need kidney biopsy. Nephrology following. d/w today. Oral thrush Anorexia Continue Diflucan Generalized weakness Likely related to cancer in treatments Acute renal failure could be contributory Physical therapy continued Diabetes mellitus type 2 Follow blood sugars Insulin sliding scale Diabetic diet DVT prophylaxis SCDs Discharge Planning not ready for discharge. Alycia Fowler MD Oct 28, 2017 13:40
--- NOTE | 2017-10-28 16:23 | HHI.NPPN ---
Subjective History of Present Illness 72-year-old male with a past medical history of diabetes mellitus, history of metastatic melanoma metastasized to the [facility] FIN[facility] and lung was brought to the hospital because of generalized weakness and decreased oral intake. I was called to see the patient because of very high BUN and creatinine. The patient denies any previous history of renal dysfunction, but when he came in his BUN was 93 and the creatinine was 8.2. Additional Remarks Patient is alert, no SOB, edema, nausea or vomiting, (Karen Holguin) Review of Systems General Constitutional: Fatigue (Karen Holguin) Respiratory Respiratory Remarks Denies any SOB (Karen Holguin) Cardiovascular Cardiac: BOURGEOIS Cardiac Remarks denies CP (Karen Holguin) Gastrointestinal GI Remarks Denies Abdominal pain (Karen Holguin) Objective Data Data 10/28/17 10/29/17 19:00 07:00 Intake Total 1000 ml Output Total 2900 ml Balance -1900 ml IV Total 1000 ml Hemodialysis 2900 ml Vital Signs Date Time Temp Pulse Resp B/P (MAP) Pulse Ox O2 Delivery O2 Flow Rate FiO2 10/28/17 15:54 97.6 62 20 110/64 (79) 10/28/17 12:55 97.6 54 18 108/55 (72) 10/28/17 12:41 65 10/28/17 07:43 98.6 53 18 121/65 (83) 96 10/28/17 04:33 97.0 52 18 120/62 (81) 97 10/28/17 04:04 54 10/28/17 03:00 48 10/28/17 02:00 38 10/28/17 01:00 46 10/28/17 00:44 97.0 42 16 100/52 (68) 96 10/28/17 00:08 42 10/28/17 00:00 44 10/27/17 22:30 97.0 45 18 115/65 (82) 98 10/27/17 22:13 97.0 45 16 121/73 (89) 98 10/27/17 19:00 72 10/27/17 16:52 55 (Karen Holguin) -: 10/27/17 0900 10/27/17 0900 Physical Exam General Appearance: No Acute Distress, Comfortable (Karen Holguin) Eyes Eye Exam: Pupils Equal (Karen Holguin) Neck Neck Exam: Neck Supple, Trachea Midline (Karen Holguin) Pulmonary Resp Exam: Breath Sounds Equal, No Distress, Rhonchi, Decreased Bases (Karen Holguin) Cardiology CV Exam: Regular, Normal Sinus Rhythm (Karen Holguin) Gastrointestinal/Abdomen GI Exam: Soft, Non-Tender, Bowel Sounds Present (Karen Holguin) Extremeties Extremities Exam: No Edema (Karen Holguin) Neurologic Neuro Exam: Alert, Awake, Oriented (Karen Holguin) Psychiatric Psych Exam: Appropriate Responses (Karen Holguin) Assessment/Plan Assessment Summary: CASANDRA/Acute Renal Failure Electrolyte Assessment: Metabolic Acidosis Problem List: (1) Metastatic melanoma ICD Codes: C79.9 - Secondary malignant neoplasm of unspecified site Status: Acute (2) Anorexia ICD Codes: R63.0 - Anorexia (3) Generalized weakness ICD Codes: R53.1 - Weakness (4) Oral thrush ICD Codes: B37.0 - Candidal stomatitis (5) DM (diabetes mellitus) ICD Codes: E11.9 - Type 2 diabetes mellitus without complications (6) CASANDRA (acute kidney injury) ICD Codes: N17.9 - Acute kidney failure, unspecified Plan Patient has Acute kidney injury. Has Minimal proteinuria, Creatinine continue to increase. Most likely has CASANDRA due to ATN. Hco3 improving on IVF with NaHco3 has been stopped K is normal, HD started via permacath had done yesterday and today. tolerated well with 2.9 liters removed. feeling tired Will get Renal Biopsy tomorrow (Karen Holguin) Plan Patient seen and examined, agree with above. His Creatinine was 0.99 on 10/08/17. D/W the and son at bed side, next HD possibly on . (Tien Styles MD) Karen Holguin Oct 28, 2017 16:23 Tien Styles MD Oct 28, 2017 17:31
[2017-10-28] MEDS: cefTRIAXone INJ 1,000 MG in SODIUM CHLORIDE 0.9% INJ 100 ML IV SCH (20:01)
[2017-10-28] MEDS: diphenhydrAMINE HCL 25 MG CAP PO PRN (20:05)
[2017-10-28] MEDS: FLUCONAZOLE 100 MG PREMIX BAG 50 ML IV SCH (21:43)
[2017-10-29] VITALS (23 sets, daily range): BP systolic 118–146; BP diastolic 57–74; PULSE 46–70; RESP 16–18; TEMP 97.5–98.3; O2SAT 94–98
[2017-10-29] MEDS: INSULIN ASPART SUPPLEMENTAL SCALE SQ SCH ×4 (08:00→20:12)
[2017-10-29 08:04] LABS: BICARBONATE 27.2 MEQ/L (21.0-32.0); CALCIUM 7.4 MG/DL (8.5-10.1); CREATININE 5.32 MG/DL (0.60-1.30)
[2017-10-29 08:23] LABS: CALCIUM-PROTEIN CORRECTED 8.7 MG/DL (8.5-10.1); TOTAL PROTEIN 4.8 GM/DL (6.4-8.2)
[2017-10-29] MEDS: DOCUSATE SODIUM 50 MG/SENNA 8.6 MG TAB PO SCH ×2 (09:00→20:05)
[2017-10-29] MEDS: FAMOTIDINE 20 MG/2 ML VIAL IV PUSH SCH ×2 (09:03→20:27)
[2017-10-29] MEDS: DEXAMETHASONE SOD PHOS 4 MG/ML VIAL IV PUSH SCH ×2 (09:03→20:27)
[2017-10-29] MEDS: SODIUM CHLORIDE 0.9% FLUSH 10 ML FLUSH IV FLUSH SCH ×2 (09:04→20:28)
--- NOTE | 2017-10-29 10:18 | PD.ONC.PN ---
Subjective Subjective Remarks Afebrile Pt reports he has no pain He is awaiting to go down for CT-guided kidney biopsy States he is hungry No other acute complaints Objective Data Date Time Temp Pulse Resp B/P (MAP) Pulse Ox O2 Delivery O2 Flow Rate FiO2 10/29/17 04:13 98.2 60 18 119/57 (77) 95 10/29/17 04:01 55 10/29/17 00:20 53 10/29/17 00:19 97.6 54 18 118/65 (82) 96 10/29/17 00:00 46 10/28/17 23:00 48 10/28/17 22:00 50 10/28/17 21:00 52 10/28/17 20:12 98.2 58 18 127/60 (82) 97 10/28/17 20:00 58 10/28/17 19:00 54 10/28/17 16:00 54 10/28/17 15:54 97.6 62 20 110/64 (79) 10/28/17 12:55 97.6 54 18 108/55 (72) 10/28/17 12:41 65 Result Diagram: 10/27/17 0900 10/29/17 0640 Laboratory Results Laboratory Tests Test 10/29/17 06:40 Blood Urea Nitrogen 70 MG/DL Creatinine 5.32 MG/DL Random Glucose 162 MG/DL Total Protein 4.8 GM/DL Calcium Level 7.4 MG/DL Sodium Level 141 MEQ/L Potassium Level 3.6 MEQ/L Chloride Level 103 MEQ/L Carbon Dioxide Level 27.2 MEQ/L Anion Gap 11 MEQ/L Estimat Glomerular Filtration Rate 11 ML/MIN Protein Corrected Calcium 8.7 MG/DL Administered Medications Medications (Trade) Dose Ordered Sig/Benson Route PRN Reason Start Time Stop Time Status Last Admin Dose Admin Dexamethasone Sodium Phosphate (Decadron Inj) 2 mg Q12HR IV PUSH 10/24/17 21:00 10/29/17 09:03 Ceftriaxone Sodium 1000 mg/ Sodium Chloride 100 ml @ 200 mls/hr Q24H IV 10/24/17 20:00 10/28/17 20:01 Sodium Chloride (NS Flush) 2 ml BID IV FLUSH 10/24/17 21:00 10/29/17 09:04 Senna/Docusate Sodium (Nevin-Colace) 1 tab BID PO 10/24/17 21:00 10/25/17 21:58 Fluconazole/ Sodium Chloride 50 ml @ 50 mls/hr Q24H IV 10/25/17 21:00 10/28/17 21:43 Insulin Aspart (NovoLOG SUPPLEMENTAL SCALE) 1 ACHS SLIDING SCALE SQ 10/25/17 08:00 10/28/17 16:59 Famotidine (Pepcid Inj) 10 mg Q12H IV PUSH 10/25/17 09:00 10/29/17 09:03 Temazepam (Restoril) 15 mg HS PRN PO insomnia 10/25/17 12:30 10/26/17 20:45 Vancomycin HCl 1000 mg/Sodium Chloride 250 ml @ 250 mls/hr STORE HAND IV 10/27/17 09:15 10/30/17 09:14 10/27/17 10:31 Diphenhydramine HCl (Benadryl) 25 mg UNSCH PRN PO for hives/itching/anaphylaxis 10/27/17 14:45 10/28/17 20:05 Objective Remarks GENERAL: Older male sitting up in chair at bedside in no obvious distress SKIN: Warm and dry. Multiple seborrheic keratoses to face HEAD: Normocephalic. EYES: No injection or drainage. NECK: Supple, trachea midline. CARDIOVASCULAR: + S1/S2. Occasional missed beat. RESPIRATORY: Clear posteriorly. Breathing unlabored at rest. GASTROINTESTINAL: Abdomen soft, non-tender, nondistended. EXTREMITIES: No cyanosis, or edema. MUSCULOSKELETAL: Adequate muscle tone. NEUROLOGICAL: No obvious focal deficit. Intermittently confused but improved from this past weekend when I last saw the patient Assessment/Plan Problem List: (1) Metastatic melanoma ICD Codes: C79.9 - Secondary malignant neoplasm of unspecified site Status: Acute Plan: -- Status post ipilumumab and nivolumab on 10/16/17 -- Metastatic disease to the brain as well as the left chest Hx/Workup: Patient is a 72-year-old male with a history of metastatic melanoma with no BRAF mutation. He received presented in February 2015 when a melanoma versus removed from the tip of the nose. Unfortunately this progressed and he had a second surgery in May 2015 as it has grown back. In August 2017 he became acutely ill with memory problems and gait problems and was found to have metastatic disease to the brain. He is status post whole brain radiation therapy completed 2 weeks ago. Over the past several weeks he has had increased weakness fatigue and loss of appetite. He's also had increased vomiting. On admission he was found to have acute renal failure. Assessment metastatic melanoma to brain and lungs with with acute renal failure. ON 2017 NA 140, K 4.2, CREATININE 0.99, BUN 27 Plan 1. Pt to have kidney biopsy today to further assess acute renal failure 2. Continue supportive care 3. Further treatment will be discussed outpatient Attending Statement The exam, history, and the medical decision-making described in the above note were completed with the assistance of the mid-level provider. I reviewed and agree with the findings presented. I attest that I had a [id number] encounter with the patient on the same day, and personally performed and documented my assessment and findings in the medical record. situation discussed with patient again. He is more lucid and appropriate since dialysis. He will continue to need dialysis and hopefully we can find out what happened to the kidney and how to best reverse the process. exam otherwise benign. I also discussed CPR and at moment he wants everything does equating no CPR with giving up. will check cbc tomorrow to make sure no bleeding from kidney bx. Erma East Oct 29, 2017 10:18 Jorge L Randhawa MD Oct 29, 2017 20:02
--- NOTE | 2017-10-29 10:29 | HHI.PR ---
Subjective Remarks in no acute distress. resting comfortably. no new complaints. awaiting kidney biopsy. Objective Vitals Vital Signs Date Time Temp Pulse Resp B/P (MAP) Pulse Ox O2 Delivery O2 Flow Rate FiO2 10/29/17 04:13 98.2 60 18 119/57 (77) 95 10/29/17 04:01 55 10/29/17 00:20 53 10/29/17 00:19 97.6 54 18 118/65 (82) 96 10/29/17 00:00 46 10/28/17 23:00 48 10/28/17 22:00 50 10/28/17 21:00 52 10/28/17 20:12 98.2 58 18 127/60 (82) 97 10/28/17 20:00 58 10/28/17 19:00 54 10/28/17 16:00 54 10/28/17 15:54 97.6 62 20 110/64 (79) 10/28/17 12:55 97.6 54 18 108/55 (72) 10/28/17 12:41 65 I/O 10/28/17 10/28/17 10/28/17 10/29/17 10/29/17 10/29/17 07:00 15:00 23:00 07:00 15:00 23:00 Intake Total 250 ml 1000 ml 650 ml Output Total 450 ml 2900 ml 1050 ml Balance -200 ml -1900 ml -400 ml Intake Oral 150 ml 500 ml IV Total 100 ml 1000 ml 150 ml Output Urine Total 450 ml 800 ml Stool Total 250 ml Hemodialysis 2900 ml # Voids 3 # Bowel Movements 4 Result Diagram: 10/27/17 0900 10/29/17639 Imaging Last Impressions Catheter Placement X-Ray 10/27/17599 Signed Impressions: Service Date/Time: Friday, October 27, 2017 11:54 - CONCLUSION: Uncomplicated PermaCath placement as above. Guicho uKmar MD Head CT 10/24/171702 Signed Impressions: Service Date/Time: Tuesday, October 24, 2017 17:43 - CONCLUSION: 1. There is evidence of diffuse bilateral brain metastatic disease. There are several hyperdense masses which could be hemorrhagic masses. 2. No significant mass effect or midline shift. Mayo Baird MD Chest X-Ray 2/9/18 1703 Signed Impressions: Service Date/Time: Tuesday, October 24, 2017 17:22 - CONCLUSION: Left lung masses as described above. No new findings. Shakir Kumar MD FACR Renal Ultrasound 10/24/17 0000 Signed Impressions: Service Date/Time: Tuesday, October 24, 2017 21:16 - CONCLUSION: 1. No evidence of hydronephrosis. 2. 3 mm calcification along the midpole the right kidney. This very represent a nonobstructing tiny renal stone. 3. Benign-appearing right renal cyst measuring 1.5 cm. 4. There is some thickening of the urinary bladder wall and some debris in the urinary bladder. Mayo Baird MD Objective Remarks GENERAL: This is a well-nourished, well-developed patient, in no apparent distress. CARDIOVASCULAR: Regular rate and regular rhythm without murmurs, gallops, or rubs. RESPIRATORY: Clear to auscultation. Breath sounds equal bilaterally. No wheezes , rales, or rhonchi. GASTROINTESTINAL: Abdomen soft, non-tender, nondistended. Normal, active bowel sounds MUSCULOSKELETAL: Extremities without clubbing, cyanosis, or edema. NEURO: Alert & Oriented x4 to person, place, time, situation. Moves all ext x4 Procedures perma-cath placement Medications and IVs Inpatient Medications Acetaminophen (Tylenol) 650 mg UNSCH PRN PO for headach, pain, temp > 101F; Start 10/27/17 at 14:45; Stop 10/27/17 at 14:45; Status DC Albumin Human 100 ml @ 60 mls/hr UNSCH PRN IV WITH DIALYSIS; Start 10/27/17 at 14:45 Bisacodyl (Dulcolax Supp) 10 mg DAILY PRN RECTAL SEVERE CONSITIPATION; Start at 19:30 Ceftriaxone Sodium 1000 mg/ Sodium Chloride 100 ml @ 200 mls/hr Q24H IV Last administered on 10/28/17at 20:01; Start 10/24/17 at 20:00 Clonidine (Catapres) 0.1 mg UNSCH PRN PO for BP > 180/100 X 2 readings; Start 10/27/17 at 14:45 Dexamethasone Sodium Phosphate (Decadron Inj) 2 mg Q12HR IV PUSH Last administered on 10/29/17at 09:03; Start 10/24/17 at 21:00 Dextrose (D50w (Vial) Inj) 50 ml UNSCH PRN IV PUSH HYPOGLYCEMIA-SEE COMMENTS; Start 10/24/17 at 21:15 Diphenhydramine HCl (Benadryl) 25 mg UNSCH PRN PO for hives/itching/ anaphylaxis Last administered on 10/28/17at 20:05; Start 10/27/17 at 14:45 Famotidine (Pepcid Inj) 10 mg Q12H IV PUSH Last administered on 10/29/17at 09:03 ; Start 10/25/17 at 09:00 Fluconazole/ Sodium Chloride 100 ml @ 100 mls/hr ONCE ONCE IV Last administered on 10/24/17at 00:37; Start 10/24/17 at 21:00; Stop 10/24/17 at 21:59; Status DC Gelatin (Gelfoam 12 Mm/7 Mm Top) 1 foam UNSCH PRN TOP SEE LABEL COMMENTS; Start 10/27/17 at 14:45 Gentamicin Sulfate (Gentamicin Inj) 20 mg UNSCH PRN OTHER WITH DIALYSIS; Start 10/27/17 at 14:45 Glucagon (Glucagon Inj) 1 mg UNSCH PRN OTHER HYPOGLYCEMIA-SEE COMMENTS; Start 10/24/17 at 21:15 Heparin Sodium (Porcine) (Heparin Inj) UNSCH PRN .XX WITH DIALYSIS; Start 09/01 at 14:45 Insulin Aspart (NovoLOG SUPPLEMENTAL SCALE) 1 ACHS SLIDING SCALE SQ Last administered on 10/28/17at 16:59; Start 10/25/17 at 08:00 Lactulose (Lactulose Liq) 30 ml DAILY PRN PO SEVERE CONSITIPATION; Start at 19:30 Magnesium Hydroxide (Milk Of Magnesia Liq) 30 ml Q12H PRN PO Mild constipation ; Start 10/24/17 at 19:30 Mannitol (Mannitol Inj) 12.5 gm UNSCH PRN IV WITH DIALYSIS; Start 10/27/17 at 14:45 Morphine Sulfate (Morphine Inj) 2 mg Q3H PRN IV PUSH Pain 6-10; Start 10/24/17 at 19:30 Multi-Ingredient Ointment (Eucerin Cream) 1 applic Q6H PRN TOPICAL DRY SKIN; Start 10/26/17 at 11:30 Nitroglycerin (Nitrostat Sl) 0.4 mg UNSCH PRN SL CHEST PAIN; Start 10/27/17 at 14:45 Ondansetron HCl (Zofran Inj) 4 mg UNSCH PRN IV PUSH WITH DIALYSIS; Start at 14:45 Senna/Docusate Sodium (Nevin-Colace) 1 tab BID PO Last administered on at 21:58; Start 10/24/17 at 21:00 Sennosides (Senokot) 17.2 mg Q12H PRN PO Moderate constipation; Start 10/24/17 at 19:30 Sodium Bicarbonate 75 meq/Sodium Chloride 1,075 ml @ 75 mls/hr [id number] IV Last administered on 10/27/17at 18:01; Start 10/25/17 at 20:00; Stop 10/28/17 at 12:39; Status DC Sodium Chloride (NS Flush) 5 ml UNSCH PRN IV FLUSH WITH DIALYSIS; Start at 14:45 Temazepam (Restoril) 15 mg HS PRN PO insomnia Last administered on 10/26/17at 20 :45; Start 10/25/17 at 12:30 Vancomycin HCl 1000 mg/Sodium Chloride 250 ml @ 250 mls/hr GOLF MANAGER IV Last administered on 10/27/17at 10:31; Start 10/27/17 at 09:15; Stop 10/30/17 at 09:14 A/P Problem List: (1) Metastatic melanoma ICD Code: C79.9 - Secondary malignant neoplasm of unspecified site Status: Acute (2) CASANDRA (acute kidney injury) ICD Code: N17.9 - Acute kidney failure, unspecified (3) Generalized weakness ICD Code: R53.1 - Weakness (4) Anorexia ICD Code: R63.0 - Anorexia (5) Oral thrush ICD Code: B37.0 - Candidal stomatitis (6) DM (diabetes mellitus) ICD Code: E11.9 - Type 2 diabetes mellitus without complications Assessment and Plan Metastatic melanoma Continue Decadron Oncology following Acute renal failure Etiology uncertain Avoid nephrotoxins s/p perma-cath placement HD initiated. for kidney biopsy today. Nephrology following. d/w today. Oral thrush Anorexia Continue Diflucan Generalized weakness Likely related to cancer in treatments Acute renal failure could be contributory Physical therapy continued Diabetes mellitus type 2 Follow blood sugars Insulin sliding scale Diabetic diet DVT prophylaxis SCDs Discharge Planning awaiting kidney biopsy. dc planning within the next couple of days- pending the result of kidney biopsy. Alycia Fowler MD Oct 29, 2017 10:29
[2017-10-29] MEDS ORDERED: LIDOCAINE HCL 1% 20 ML VIAL ONE (14:14)
[2017-10-29] MEDS ORDERED: MIDAZOLAM HCL 2 MG/2 ML VIAL ONE (14:19)
--- NOTE | 2017-10-29 14:53 | PD.RAD ---
Post CT Procedure Prog Note Pre Procedure Diagnosis: (1) Metastatic melanoma (2) CASANDRA (acute kidney injury) Post Procedure Diagnosis: (1) CASANDRA (acute kidney injury) Procedure Date: Oct 29, 2017 Supervising Radiologist: Herson Post Anesthesia: Conscious Sedation Plan of Activity Patient to Unit: ROPU Patient Condition: Good See PACS Report for procedural detail/treatment Herson Post MD Oct 29, 2017 14:53
[2017-10-29 15:50] LABS: HEMATOCRIT 31.9 % (39.0-51.0); HEMOGLOBIN 11.4 GM/DL (13.0-17.0)
--- NOTE | 2017-10-29 16:42 | RADRPT ---
EXAM DATE/TIME: 10/29/2017 14:26 [facility] COMPARISON: No previous studies available for comparison. INDICATIONS : Renal Function, Possible AIN/ATN., SEDATION TIME: 30 minutes BIOPSY SITE: Left kidney MEDICATION(S): 1.) 50 mcg fentanyl (Sublimaze) IV 2.) 1 mg midazolam (Versed) DEVICE(S): 1.) 16 gauge Jamil blunt needle 2.) 18 gauge Temno core biopsy needle MEDICAL HISTORY : Carcinoma, lung. Diabetes mellitus type 2. 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 ENCOUNTER: Initial ACUITY: 1 day PAIN SCORE: 09/24 LOCATION: Left kidney A total of two core specimen(s) were obtained and sent to the laboratory for pathologic evaluation. PROCEDURE: 1. CT guided tribal left renal biopsy. Prior to the procedure informed consent was obtained. Any appropriate prior imaging studies were rev iewed. Using automated exposure control and adjustment of the mA and/or kV according to patient size, radiat ion dose was kept as low as reasonably achievable to obtain optimal diagnostic quality images. DICOM format image data is available electronically for review and comparison. The site was prepped in a sterile fashion. Full sterile technique was used, including cap, mask, zach rile gloves and gown and a large sterile sheet. Hand hygiene and 2% chlorhexidine and/or betadine/al cohol prep was utilized per protocol for cutaneous antisepsis. The skin and subcutaneous tissues wer e infiltrated with local anesthetic solution. With CT guidance the previously identified target was localized. Biopsy was performed using the presc ribed needle as above. Small amount of Gelfoam was injected through the needle prior to removal of t he needle. Adequate hemostasis was obtained with compression at the puncture site. Follow-up CT scan demonstrated trace perinephric hematoma. The patient tolerated the procedure well and there were no complications. The patient was returned to the Radiology Outpatient Unit in stable condition. CONCLUSION: Uncomplicated CT guided biopsy. Herson Post MD on October 29, 2017 at 16:37 Board Certified Radiologist. This report was verified electronically.
[2017-10-29 18:14] LABS: HEMATOCRIT 34.4 % (39.0-51.0); HEMOGLOBIN 11.9 GM/DL (13.0-17.0)
[2017-10-29] MEDS: diphenhydrAMINE HCL 25 MG CAP PO PRN (20:27)
[2017-10-29] MEDS: cefTRIAXone INJ 1,000 MG in SODIUM CHLORIDE 0.9% INJ 100 ML IV SCH (20:28)
[2017-10-29] MEDS: FLUCONAZOLE 100 MG PREMIX BAG 50 ML IV SCH (21:00)
[2017-10-30] VITALS (19 sets, daily range): BP systolic 100–142; BP diastolic 52–86; PULSE 46–78; RESP 16–18; TEMP 97–98; O2SAT 97
[2017-10-30 06:39] LABS: AUTOMATED NEUTROPHIL # 5.7 TH/MM3 (1.8-7.7); EOSINOPHIL % 0.3 % (0.0-4.0); HEMATOCRIT 29.6 % (39.0-51.0); HEMOGLOBIN 10.2 GM/DL (13.0-17.0); LYMPH % 13.4 % (9.0-44.0); MEAN CORPUSCULAR HEMOGLOBIN 30.4 PG (27.0-34.0); MEAN CORPUSCULAR HGB CONC 34.5 % (32.0-36.0); MONO % 5.9 % (0.0-8.0); MONOCYTE # 0.4 TH/MM3 (0-0.9); NEUT % 80.4 % (16.0-70.0); PLATELET COUNT 142 TH/MM3 (150-450); RED BLOOD COUNT 3.36 MIL/MM3 (4.50-5.90); WHITE BLOOD COUNT 7.1 TH/MM3 (4.0-11.0)
[2017-10-30 07:23] LABS: BICARBONATE 26.2 MEQ/L (21.0-32.0); CALCIUM 7.3 MG/DL (8.5-10.1); CREATININE 4.46 MG/DL (0.60-1.30)
[2017-10-30 07:44] LABS: CALCIUM-PROTEIN CORRECTED 8.5 MG/DL (8.5-10.1); TOTAL PROTEIN 4.9 GM/DL (6.4-8.2)
[2017-10-30] MEDS: INSULIN ASPART SUPPLEMENTAL SCALE SQ SCH ×4 (08:00→20:22)
[2017-10-30] MEDS: SODIUM CHLORIDE 0.9% FLUSH 10 ML FLUSH IV FLUSH SCH ×2 (09:00→20:33)
[2017-10-30] MEDS: FAMOTIDINE 20 MG/2 ML VIAL IV PUSH SCH ×2 (09:05→20:24)
[2017-10-30] MEDS: DOCUSATE SODIUM 50 MG/SENNA 8.6 MG TAB PO SCH ×2 (09:05→20:24)
[2017-10-30] MEDS: DEXAMETHASONE SOD PHOS 4 MG/ML VIAL IV PUSH SCH ×2 (09:05→20:23)
--- NOTE | 2017-10-30 11:44 | HHI.NPPN ---
Subjective History of Present Illness 72-year-old male with a past medical history of diabetes mellitus, history of metastatic melanoma metastasized to the EDUCATIONAL AID and lung was brought to the hospital because of generalized weakness and decreased oral intake. I was called to see the patient because of very high BUN and creatinine. The patient denies any previous history of renal dysfunction, but when he came in his BUN was 93 and the creatinine was 8.2. Additional Remarks This is a late entry, note for 10/29/2017. Patient was seen by me, is alert, no SOB, not in distress. Review of Systems General Constitutional: Fatigue Respiratory Respiratory Remarks Denies any SOB Cardiovascular Cardiac: BOURGEOIS Cardiac Remarks denies CP Gastrointestinal GI Remarks Denies Abdominal pain Objective Data Data Vital Signs Date Time Temp Pulse Resp B/P (MAP) Pulse Ox O2 Delivery O2 Flow Rate FiO2 10/30/17 08:30 47 10/30/17 08:00 97.8 58 18 123/71 (88) 97 10/30/17 06:00 54 10/30/17 05:00 56 10/30/17 04:00 97.7 58 16 139/70 (93) 97 10/30/17 03:00 52 10/30/17 02:00 50 10/30/17 01:00 52 10/30/17 00:00 49 10/30/17 00:00 55 10/29/17 23:00 98.3 60 17 130/72 (91) 98 10/29/17 22:00 70 10/29/17 21:00 56 10/29/17 20:00 56 10/29/17 19:30 97.7 55 16 132/73 (92) 97 10/29/17 18:00 60 10/29/17 17:39 97.8 52 18 118/58 (78) 95 10/29/17 17:00 54 10/29/17 16:15 55 18 134/72 (92) 94 10/29/17 15:45 56 16 138/74 (95) 96 10/29/17 15:15 55 16 143/70 (94) 97 10/29/17 15:00 97.9 55 18 138/73 (94) 95 10/29/17 12:00 98.0 55 16 138/74 (95) 97 10/29/17 12:00 54 -: 10/30/17 0557 10/30/17 0557 Physical Exam General Appearance: No Acute Distress, Comfortable Eyes Eye Exam: Pupils Equal Neck Neck Exam: Neck Supple, Trachea Midline Pulmonary Resp Exam: Breath Sounds Equal, No Distress, Rhonchi, Decreased Bases Cardiology CV Exam: Regular, Normal Sinus Rhythm Gastrointestinal/Abdomen GI Exam: Soft, Non-Tender, Bowel Sounds Present Extremeties Extremities Exam: No Edema Neurologic Neuro Exam: Alert, Awake, Oriented Psychiatric Psych Exam: Appropriate Responses Assessment/Plan Assessment Summary: CASANDRA/Acute Renal Failure Electrolyte Assessment: Metabolic Acidosis Problem List: (1) Metastatic melanoma ICD Codes: C79.9 - Secondary malignant neoplasm of unspecified site Status: Acute (2) Anorexia ICD Codes: R63.0 - Anorexia (3) Generalized weakness ICD Codes: R53.1 - Weakness (4) Oral thrush ICD Codes: B37.0 - Candidal stomatitis (5) DM (diabetes mellitus) ICD Codes: E11.9 - Type 2 diabetes mellitus without complications (6) CASANDRA (acute kidney injury) ICD Codes: N17.9 - Acute kidney failure, unspecified Plan Patient has been non oliguric, not much improvement in the renal function. His Creatinine was 0.99 on 10/08/17. D/W the and son at bed side, next HD possibly on . Awaiting renal Biopsy. Has been non oliguric, after the Biopsy, if no improvement in renal function, will arrange for out patient HD. Tien Styles MD Oct 30, 2017 11:44
--- NOTE | 2017-10-30 11:45 | HHI.NPPN ---
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 I was called to see the patient because of very high BUN and creatinine. The patient denies any previous history of renal dysfunction, but when he came in his BUN was 93 and the creatinine was 8.2. Additional Remarks Patient now on HD, alert, no SOB, eating better. Review of Systems General Constitutional: Fatigue Respiratory Respiratory Remarks Denies any SOB Cardiovascular Cardiac: BOURGEOIS Cardiac Remarks denies CP Gastrointestinal GI Remarks Denies Abdominal pain Objective Data Data Vital Signs Date Time Temp Pulse Resp B/P (MAP) Pulse Ox O2 Delivery O2 Flow Rate FiO2 10/30/17 08:30 47 10/30/17 08:00 97.8 58 18 123/71 (88) 97 10/30/17 06:00 54 10/30/17 05:00 56 10/30/17 04:00 97.7 58 16 139/70 (93) 97 10/30/17 03:00 52 10/30/17 02:00 50 10/30/17 01:00 52 10/30/17 00:00 49 10/30/17 00:00 55 10/29/17 23:00 98.3 60 17 130/72 (91) 98 10/29/17 22:00 70 10/29/17 21:00 56 10/29/17 20:00 56 10/29/17 19:30 97.7 55 16 132/73 (92) 97 10/29/17 18:00 60 10/29/17 17:39 97.8 52 18 118/58 (78) 95 10/29/17 17:00 54 10/29/17 16:15 55 18 134/72 (92) 94 10/29/17 15:45 56 16 138/74 (95) 96 10/29/17 15:15 55 16 143/70 (94) 97 10/29/17 15:00 97.9 55 18 138/73 (94) 95 10/29/17 12:00 98.0 55 16 138/74 (95) 97 10/29/17 12:00 54 -: 10/30/17 0557 10/30/17 0557 Physical Exam General Appearance: No Acute Distress, Comfortable Eyes Eye Exam: Pupils Equal Neck Neck Exam: Neck Supple, Trachea Midline Pulmonary Resp Exam: Breath Sounds Equal, No Distress, Rhonchi, Decreased Bases Cardiology CV Exam: Regular, Normal Sinus Rhythm Gastrointestinal/Abdomen GI Exam: Soft, Non-Tender, Bowel Sounds Present Extremeties Extremities Exam: No Edema Neurologic Neuro Exam: Alert, Awake, Oriented Psychiatric Psych Exam: Appropriate Responses Assessment/Plan Assessment Summary: CASANDRA/Acute Renal Failure Electrolyte Assessment: Metabolic Acidosis Problem List: (1) Metastatic melanoma ICD Codes: C79.9 - Secondary malignant neoplasm of unspecified site Status: Acute (2) Anorexia ICD Codes: R63.0 - Anorexia (3) Generalized weakness ICD Codes: R53.1 - Weakness (4) Oral thrush ICD Codes: B37.0 - Candidal stomatitis (5) DM (diabetes mellitus) ICD Codes: E11.9 - Type 2 diabetes mellitus without complications (6) CASANDRA (acute kidney injury) ICD Codes: N17.9 - Acute kidney failure, unspecified Plan Patient has been non oliguric, not much improvement in the renal function. His Creatinine was 0.99 on 10/08/17. Awaiting renal Biopsy. Has been non oliguric, after the Biopsy, if no improvement in renal function, will arrange for out patient HD. HD now, Creatinine is slightly better. Tien Styles MD Oct 30, 2017 11:45
[2017-10-30] MEDS: HEPARIN SODIUM - IV 10,000 UNITS/10 ML VIAL PRN (11:54)
[2017-10-30] MEDS: GENTAMICIN SULFATE 20 MG/2 ML VIAL OTHER PRN (11:54)
--- NOTE | 2017-10-30 13:15 | HHI.PR ---
Subjective Remarks in no acute distress. having his HD today. no new complaints. Objective Vitals Vital Signs Date Time Temp Pulse Resp B/P (MAP) Pulse Ox O2 Delivery O2 Flow Rate FiO2 10/30/17 08:30 47 10/30/17 08:00 97.8 58 18 123/71 (88) 97 10/30/17 06:00 54 10/30/17 05:00 56 10/30/17 04:00 97.7 58 16 139/70 (93) 97 10/30/17 03:00 52 10/30/17 02:00 50 10/30/17 01:00 52 10/30/17 00:00 49 10/30/17 00:00 55 10/29/17 23:00 98.3 60 17 130/72 (91) 98 10/29/17 22:00 70 10/29/17 21:00 56 10/29/17 20:00 56 10/29/17 19:30 97.7 55 16 132/73 (92) 97 10/29/17 18:00 60 10/29/17 17:39 97.8 52 18 118/58 (78) 95 10/29/17 17:00 54 10/29/17 16:15 55 18 134/72 (92) 94 10/29/17 15:45 56 16 138/74 (95) 96 10/29/17 15:15 55 16 143/70 (94) 97 10/29/17 15:00 97.9 55 18 138/73 (94) 95 I/O 10/29/17 10/29/17 10/29/17 10/30/17 10/30/17 10/30/17 07:00 15:00 23:00 07:00 15:00 23:00 Intake Total 510 ml 360 ml Output Total 500 ml 325 ml 2000 ml Balance 10 ml 35 ml -2000 ml Intake Oral 360 ml 360 ml IV Total 150 ml Output Urine Total 500 ml 325 ml Hemodialysis 2000 ml # Bowel Movements 1 Result Diagram: 10/30/17 0557 10/30/17556 Imaging Last Impressions Renal Biopsy CT 10/29/17599 Signed Impressions: Service Date/Time: Sunday, October 29, 2017 14:26 - CONCLUSION: Uncomplicated CT guided biopsy. Herson Post MD Catheter Placement X-Ray 2/12/18 0600 Signed Impressions: Service Date/Time: Friday, October 27, 2017 11:54 - CONCLUSION: Uncomplicated PermaCath placement as above. Guicho Kumar MD Head CT 10/24/17 1703 Signed Impressions: Service Date/Time: Tuesday, October 24, 2017 17:43 - CONCLUSION: 1. There is evidence of diffuse bilateral brain metastatic disease. There are several hyperdense masses which could be hemorrhagic masses. 2. No significant mass effect or midline shift. Mayo Baird MD Chest X-Ray 10/24/17 1703 Signed Impressions: Service Date/Time: Tuesday, October 24, 2017 17:22 - CONCLUSION: Left lung masses as described above. No new findings. Shakir Kumar MD FACR Renal Ultrasound 10/24/17 0000 Signed Impressions: Service Date/Time: Tuesday, October 24, 2017 21:16 - CONCLUSION: 1. No evidence of hydronephrosis. 2. 3 mm calcification along the midpole the right kidney. This very represent a nonobstructing tiny renal stone. 3. Benign-appearing right renal cyst measuring 1.5 cm. 4. There is some thickening of the urinary bladder wall and some debris in the urinary bladder. Mayo Baird MD Objective Remarks GENERAL: This is a well-nourished, well-developed patient, in no apparent distress. CARDIOVASCULAR: Regular rate and regular rhythm without murmurs, gallops, or rubs. RESPIRATORY: Clear to auscultation. Breath sounds equal bilaterally. No wheezes , rales, or rhonchi. GASTROINTESTINAL: Abdomen soft, non-tender, nondistended. Normal, active bowel sounds MUSCULOSKELETAL: Extremities without clubbing, cyanosis, or edema. NEURO: Alert & Oriented x4 to person, place, time, situation. Moves all ext x4 Procedures perma-cath placement kidney biopsy Medications and IVs Inpatient Medications Acetaminophen (Tylenol) 650 mg UNSCH PRN PO for headach, pain, temp > 101F; Start 10/27/17 at 14:45; Stop 10/27/17 at 14:45; Status DC Albumin Human 100 ml @ 60 mls/hr UNSCH PRN IV WITH DIALYSIS; Start 10/27/17 at 14:45 Bisacodyl (Dulcolax Supp) 10 mg DAILY PRN RECTAL SEVERE CONSITIPATION; Start at 19:30 Ceftriaxone Sodium 1000 mg/ Sodium Chloride 100 ml @ 200 mls/hr Q24H IV Last administered on 10/29/17at 20:28; Start 10/24/17 at 20:00 Clonidine (Catapres) 0.1 mg UNSCH PRN PO for BP > 180/100 X 2 readings; Start 10/27/17 at 14:45 Dexamethasone Sodium Phosphate (Decadron Inj) 2 mg Q12HR IV PUSH Last administered on 10/30/17at 09:05; Start 10/24/17 at 21:00 Dextrose (D50w (Vial) Inj) 50 ml UNSCH PRN IV PUSH HYPOGLYCEMIA-SEE COMMENTS; Start 10/24/17 at 21:15 Diphenhydramine HCl (Benadryl) 25 mg UNSCH PRN PO for hives/itching/ anaphylaxis Last administered on 10/29/17at 20:27; Start 10/27/17 at 14:45 Famotidine (Pepcid Inj) 10 mg Q12H IV PUSH Last administered on 10/30/17at 09:05 ; Start 10/25/17 at 09:00 Fluconazole/ Sodium Chloride 100 ml @ 100 mls/hr ONCE ONCE IV Last administered on 10/24/17at 00:37; Start 10/24/17 at 21:00; Stop 10/24/17 at 21:59; Status DC Gelatin (Gelfoam 12 Mm/7 Mm Top) 1 foam UNSCH PRN TOP SEE LABEL COMMENTS; Start 10/27/17 at 14:45 Gentamicin Sulfate (Gentamicin Inj) 20 mg UNSCH PRN OTHER WITH DIALYSIS Last administered on 10/30/17at 11:54; Start 10/27/17 at 14:45 Glucagon (Glucagon Inj) 1 mg UNSCH PRN OTHER HYPOGLYCEMIA-SEE COMMENTS; Start 10/24/17 at 21:15 Heparin Sodium (Porcine) (Heparin Inj) UNSCH PRN .XX WITH DIALYSIS Last administered on 10/30/17at 11:54; Start 10/27/17 at 14:45 Insulin Aspart (NovoLOG SUPPLEMENTAL SCALE) 1 ACHS SLIDING SCALE SQ Last administered on 10/30/17at 08:00; Start 10/25/17 at 08:00 Lactulose (Lactulose Liq) 30 ml DAILY PRN PO SEVERE CONSITIPATION; Start at 19:30 Magnesium Hydroxide (Milk Of Magncollins Liq) 30 ml Q12H PRN PO Mild constipation ; Start 10/24/17 at 19:30 Mannitol (Mannitol Inj) 12.5 gm UNSCH PRN IV WITH DIALYSIS; Start 10/27/17 at 14:45 Morphine Sulfate (Morphine Inj) 2 mg Q3H PRN IV PUSH Pain 6-10; Start 10/24/17 at 19:30 Multi-Ingredient Ointment (Eucerin Cream) 1 applic Q6H PRN TOPICAL DRY SKIN; Start 10/26/17 at 11:30 Nitroglycerin (Nitrostat Sl) 0.4 mg UNSCH PRN SL CHEST PAIN; Start 10/27/17 at 14:45 Ondansetron HCl (Zofran Inj) 4 mg UNSCH PRN IV PUSH WITH DIALYSIS; Start at 14:45 Senna/Docusate Sodium (Nevin-Colace) 1 tab BID PO Last administered on at 09:05; Start 10/24/17 at 21:00 Sennosides (Senokot) 17.2 mg Q12H PRN PO Moderate constipation; Start 10/24/17 at 19:30 Sodium Bicarbonate 75 meq/Sodium Chloride 1,075 ml @ 75 mls/hr [id number] IV Last administered on 10/27/17at 18:01; Start 10/25/17 at 20:00; Stop 10/28/17 at 12:39; Status DC Sodium Chloride (NS Flush) 5 ml UNSCH PRN IV FLUSH WITH DIALYSIS; Start at 14:45 Temazepam (Restoril) 15 mg HS PRN PO insomnia Last administered on 10/26/17at 20 :45; Start 10/25/17 at 12:30 Vancomycin HCl 1000 mg/Sodium Chloride 250 ml @ 250 mls/hr RN CLINICAL REVIEW IV Last administered on 10/27/17at 10:31; Start 10/27/17 at 09:15; Stop 10/30/17 at 09:14 ; Status DC A/P Problem List: (1) Metastatic melanoma ICD Code: C79.9 - Secondary malignant neoplasm of unspecified site Status: Acute (2) CASANDRA (acute kidney injury) ICD Code: N17.9 - Acute kidney failure, unspecified (3) Generalized weakness ICD Code: R53.1 - Weakness (4) Anorexia ICD Code: R63.0 - Anorexia (5) Oral thrush ICD Code: B37.0 - Candidal stomatitis (6) DM (diabetes mellitus) ICD Code: E11.9 - Type 2 diabetes mellitus without complications Assessment and Plan Metastatic melanoma Continue Decadron Oncology following Acute renal failure Etiology uncertain s/p kidnet biopsy- will follow the pathology. Avoid nephrotoxins s/p perma-cath placement HD initiated. Nephrology following. HD per nephrology. Oral thrush Anorexia Continue Diflucan Generalized weakness Likely related to cancer in treatments Acute renal failure could be contributory Physical therapy continued Diabetes mellitus type 2 Follow blood sugars Insulin sliding scale Diabetic diet DVT prophylaxis SCDs Discharge Planning awaiting kidney biopsy result and decision on outpatient HD. Alycia Fowler MD Oct 30, 2017 13:15
--- NOTE | 2017-10-30 14:36 | PD.ONC.PN ---
Subjective Subjective Remarks Afebrile overnight. Patient resting in room, watching TV, talking with friends and family. He appears fatigued. He states he is fine. Objective Data Date Time Temp Pulse Resp B/P (MAP) Pulse Ox O2 Delivery O2 Flow Rate FiO2 10/30/17 08:30 47 10/30/17 08:00 97.8 58 18 123/71 (88) 97 10/30/17 06:00 54 10/30/17 05:00 56 10/30/17 04:00 97.7 58 16 139/70 (93) 97 10/30/17 03:00 52 10/30/17 02:00 50 10/30/17 01:00 52 10/30/17 00:00 49 10/30/17 00:00 55 10/29/17 23:00 98.3 60 17 130/72 (91) 98 10/29/17 22:00 70 10/29/17 21:00 56 10/29/17 20:00 56 10/29/17 19:30 97.7 55 16 132/73 (92) 97 10/29/17 18:00 60 10/29/17 17:39 97.8 52 18 118/58 (78) 95 10/29/17 17:00 54 10/29/17 16:15 55 18 134/72 (92) 94 10/29/17 15:45 56 16 138/74 (95) 96 10/29/17 15:15 55 16 143/70 (94) 97 10/29/17 15:00 97.9 55 18 138/73 (94) 95 10/30/17 10/30/17 10/30/17 07:00 15:00 23:00 Intake Total 360 ml Output Total 325 ml 2000 ml Balance 35 ml -2000 ml Result Diagram: 10/30/17 0557 10/30/17 0557 Laboratory Results Laboratory Tests Test 10/29/17 15:20 10/29/17 17:36 10/30/17 05:57 Hemoglobin 11.4 GM/DL 11.9 GM/DL 10.2 GM/DL Hematocrit 31.9 % 34.4 % 29.6 % White Blood Count 7.1 TH/MM3 Red Blood Count 3.36 MIL/MM3 Mean Corpuscular Volume 88.0 FL Mean Corpuscular Hemoglobin 30.4 PG Mean Corpuscular Hemoglobin Concent 34.5 % Red Cell Distribution Width 15.0 % Platelet Count 142 TH/MM3 Mean Platelet Volume 8.0 FL Neutrophils (%) (Auto) 80.4 % Lymphocytes (%) (Auto) 13.4 % Monocytes (%) (Auto) 5.9 % Eosinophils (%) (Auto) 0.3 % Basophils (%) (Auto) 0.0 % Neutrophils # (Auto) 5.7 TH/MM3 Lymphocytes # (Auto) 1.0 TH/MM3 Monocytes # (Auto) 0.4 TH/MM3 Eosinophils # (Auto) 0.0 TH/MM3 Basophils # (Auto) 0.0 TH/MM3 CBC Comment DIFF FINAL Differential Comment Blood Urea Nitrogen 69 MG/DL Creatinine 4.46 MG/DL Random Glucose 184 MG/DL Total Protein 4.9 GM/DL Calcium Level 7.3 MG/DL Sodium Level 141 MEQ/L Potassium Level 3.4 MEQ/L Chloride Level 104 MEQ/L Carbon Dioxide Level 26.2 MEQ/L Anion Gap 11 MEQ/L Estimat Glomerular Filtration Rate 13 ML/MIN Protein Corrected Calcium 8.5 MG/DL Administered Medications Medications (Trade) Dose Ordered Sig/Benson Route PRN Reason Start Time Stop Time Status Last Admin Dose Admin Dexamethasone Sodium Phosphate (Decadron Inj) 2 mg Q12HR IV PUSH 10/24/17 21:00 10/30/17 09:05 Ceftriaxone Sodium 1000 mg/ Sodium Chloride 100 ml @ 200 mls/hr Q24H IV 10/24/17 20:00 10/29/17 20:28 Sodium Chloride (NS Flush) 2 ml BID IV FLUSH 10/24/17 21:00 10/30/17 09:00 Senna/Docusate Sodium (Nevin-Colace) 1 tab BID PO 10/24/17 21:00 10/30/17 09:05 Fluconazole/ Sodium Chloride 50 ml @ 50 mls/hr Q24H IV 10/25/17 21:00 10/29/17 21:00 Insulin Aspart (NovoLOG SUPPLEMENTAL SCALE) 1 ACHS SLIDING SCALE SQ 10/25/17 08:00 10/30/17 08:00 Famotidine (Pepcid Inj) 10 mg Q12H IV PUSH 10/25/17 09:00 10/30/17 09:05 Temazepam (Restoril) 15 mg HS PRN PO insomnia 10/25/17 12:30 10/26/17 20:45 Heparin Sodium (Porcine) (Heparin Inj) UNSCH PRN .XX WITH DIALYSIS 10/27/17 14:45 10/30/17 11:54 Gentamicin Sulfate (Gentamicin Inj) 20 mg UNSCH PRN OTHER WITH DIALYSIS 10/27/17 14:45 10/30/17 11:54 Diphenhydramine HCl (Benadryl) 25 mg UNSCH PRN PO for hives/itching/anaphylaxis 10/27/17 14:45 10/29/17 20:27 Objective Remarks GENERAL: Elderly male, sitting up in bed in nad. SKIN: Warm and dry. HEAD: Normocephalic. EYES: No injection or drainage. NECK: Supple, trachea midline. CARDIOVASCULAR: Regular rate and rhythm RESPIRATORY: Breath sounds equal bilaterally. No accessory muscle use. GASTROINTESTINAL: Abdomen soft, non-tender, nondistended. EXTREMITIES: No cyanosis NEUROLOGICAL: awake and alert, normal speech. moving all extremities. 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 Plan 1. await kidney biopsy 2. monitor renal function. 3. I discussed with patient and son at bedside that we plan to await the renal biopsy to help determine the cause of the renal failure. disposition: from an oncology perspective the patient could be discharged whenever outpatient dialysis is set up or patient is cleared by nephrology for discharge. Attending Statement The exam, history, and the medical decision-making described in the above note were completed with the assistance of the mid-level provider. I reviewed and agree with the findings presented. I attest that I had a [id number] encounter with the patient on the same day, and personally performed and documented my assessment and findings in the medical record. Spoke with Dr. Styles and with patient at length. He still is confused and did not have any idea of how many days he has been in the hospital and thought that it was Nov 01 today. At the same time he has insight into the gravity of his illness and has strong feelings about not wanting to live unless he will be substantially better. I spoke to him about the fact that we do not know if his renal failure is reversible, we do not know the cause, and at this point we do not know if he is responding to treatment. I told him that if his renal function does not improve then it would be reasonable to involve hospice and discontinue dialysis, given his current illness with multiple brain mets from melanoma. Hopefully he will be able to go home Friday and look forward to pathology review of renal bx. Jaimie Shine Oct 30, 2017 14:35 Jorge L Randhawa MD Oct 30, 2017 20:23
[2017-10-30] MEDS: LORazepam 0.5 MG TAB PO PRN (18:35)
[2017-10-30] MEDS: diphenhydrAMINE HCL 25 MG CAP PO PRN (20:21)
[2017-10-30] MEDS: FLUCONAZOLE 100 MG PREMIX BAG 50 ML IV SCH (20:22)
[2017-10-30] MEDS: cefTRIAXone INJ 1,000 MG in SODIUM CHLORIDE 0.9% INJ 100 ML IV SCH (20:23)
[2017-10-31] VITALS (13 sets, daily range): BP systolic 105–127; BP diastolic 51–71; PULSE 56–110; RESP 16–17; TEMP 98.2–98.6; O2SAT 93–95
[2017-10-31] MEDS: INSULIN ASPART SUPPLEMENTAL SCALE SQ SCH ×4 (08:00→19:42)
[2017-10-31] MEDS: DEXAMETHASONE SOD PHOS 4 MG/ML VIAL IV PUSH SCH ×2 (08:29→19:41)
[2017-10-31] MEDS: FAMOTIDINE 20 MG/2 ML VIAL IV PUSH SCH ×2 (08:29→19:41)
[2017-10-31] MEDS: SODIUM CHLORIDE 0.9% FLUSH 10 ML FLUSH IV FLUSH SCH ×2 (08:30→19:41)
[2017-10-31] MEDS: DOCUSATE SODIUM 50 MG/SENNA 8.6 MG TAB PO SCH ×2 (08:30→19:46)
--- NOTE | 2017-10-31 08:49 | PD.ONC.PN ---
Subjective Subjective Remarks Afebrile overnight. Patient resting in bed. appears depressed and forlorn. he is quiet and does not ask many questions. Objective Data Date Time Temp Pulse Resp B/P (MAP) Pulse Ox O2 Delivery O2 Flow Rate FiO2 10/31/17 06:00 56 10/31/17 05:00 56 10/31/17 04:00 98.2 66 16 105/51 (69) 95 10/31/17 04:00 56 10/31/17 03:00 58 10/31/17 02:00 58 10/31/17 01:00 58 10/31/17 00:00 65 10/31/17 00:00 98.5 66 17 119/68 (85) 95 10/30/17 22:00 66 10/30/17 20:00 62 10/30/17 20:00 97.0 67 16 142/74 (96) 97 10/30/17 18:00 78 10/30/17 17:00 54 10/30/17 16:17 57 10/30/17 16:00 98.0 55 16 100/52 (68) 97 10/30/17 12:00 97.7 60 16 132/86 (101) 10/30/17 11:00 52 10/30/17 10:00 52 10/30/17 09:00 46 10/31/17 10/31/17 10/31/17 07:00 15:00 23:00 Intake Total 240 ml Output Total 300 ml Balance -60 ml Result Diagram: 10/30/17 0557 10/30/1757 Administered Medications Medications (Trade) Dose Ordered Sig/Benson Route PRN Reason Start Time Stop Time Status Last Admin Dose Admin Dexamethasone Sodium Phosphate (Decadron Inj) 2 mg Q12HR IV PUSH 10/24/17 21:00 10/30/17 20:23 Ceftriaxone Sodium 1000 mg/ Sodium Chloride 100 ml @ 200 mls/hr Q24H IV 10/24/17 20:00 10/30/17 20:23 Sodium Chloride (NS Flush) 2 ml BID IV FLUSH 10/24/17 21:00 10/30/17 20:33 Senna/Docusate Sodium (Nevin-Colace) 1 tab BID PO 10/24/17 21:00 10/30/17 09:05 Fluconazole/ Sodium Chloride 50 ml @ 50 mls/hr Q24H IV 10/25/17 21:00 10/30/17 20:22 Insulin Aspart (NovoLOG SUPPLEMENTAL SCALE) 1 ACHS SLIDING SCALE SQ 10/25/17 08:00 10/30/17 20:22 Famotidine (Pepcid Inj) 10 mg Q12H IV PUSH 10/25/17 09:00 10/30/17 20:24 Temazepam (Restoril) 15 mg HS PRN PO insomnia 10/25/17 12:30 10/26/17 20:45 Heparin Sodium (Porcine) (Heparin Inj) UNSCH PRN .XX WITH DIALYSIS 10/27/17 14:45 10/30/17 11:54 Gentamicin Sulfate (Gentamicin Inj) 20 mg UNSCH PRN OTHER WITH DIALYSIS 10/27/17 14:45 10/30/17 11:54 Diphenhydramine HCl (Benadryl) 25 mg UNSCH PRN PO for hives/itching/anaphylaxis 10/27/17 14:45 10/30/17 20:21 Lorazepam (Ativan) 0.5 mg Q12H PRN PO ANXIETY 10/30/17 18:30 10/30/17 18:35 Objective Remarks GENERAL: Elderly male, lying in dark room, appears depressed and forlorn. SKIN: Warm and dry. HEAD: Normocephalic. EYES: No injection or drainage. NECK: Supple, trachea midline. CARDIOVASCULAR: Regular rate and rhythm RESPIRATORY: Breath sounds equal bilaterally. No accessory muscle use. GASTROINTESTINAL: Abdomen soft, non-tender, nondistended. EXTREMITIES: No cyanosis NEUROLOGICAL: No obvious focal deficit. Awake, alert, and oriented x3. 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 Plan 1. discussed waiting on kidney biopsy to see if patient has a reversal cause of renal failure. (Dr. Randhawa) offered to call patient's family member to go over information presented and review plan but patient refused. 2. check CBC, BMP today Attending Statement The exam, history, and the medical decision-making described in the above note were completed with the assistance of the mid-level provider. I reviewed and agree with the findings presented. I attest that I had a [id number] encounter with the patient on the same day, and personally performed and documented my assessment and findings in the medical record. no change in exam and patient remains depressed. creatinine continues to fall and hopefully renal function improving. I will hold on an antidepressant now as there is a level of intermittent confusion and renal function is not stable. I am hopeful he will be able to go home Friday off dialysis. will follow bmp. to early to evaluate for response to immune therapy Jaimie Shine Oct 31, 2017 08:49 Jorge L Randhawa MD Oct 31, 2017 19:08
[2017-10-31 13:44] LABS: HEMATOCRIT 30.5 % (39.0-51.0); HEMOGLOBIN 10.7 GM/DL (13.0-17.0); MEAN CELL VOLUME 88.6 FL (80.0-100.0); MEAN CORPUSCULAR HEMOGLOBIN 31.1 PG (27.0-34.0); MEAN PLATELET VOLUME 8.2 FL (7.0-11.0); PLATELET COUNT 149 TH/MM3 (150-450); RED BLOOD COUNT 3.44 MIL/MM3 (4.50-5.90); WHITE BLOOD COUNT 6.6 TH/MM3 (4.0-11.0)
[2017-10-31 14:11] LABS: BICARBONATE 28.1 MEQ/L (21.0-32.0); CALCIUM 7.5 MG/DL (8.5-10.1); CREATININE 2.96 MG/DL (0.60-1.30)
--- NOTE | 2017-10-31 15:19 | HHI.NPPN ---
Subjective History of Present Illness 72-year-old male with a past medical history of diabetes mellitus, history of metastatic melanoma metastasized to the [facility] and lung was brought to the hospital because of generalized weakness and decreased oral intake. I was called to see the patient because of very high BUN and creatinine. The patient denies any previous history of renal dysfunction, but when he came in his BUN was 93 and the creatinine was 8.2. Additional Remarks Alert and oriented, no SOB. Son at bedside (Karen Holguin) Review of Systems General Constitutional: Fatigue (Karen Holguin) Respiratory Respiratory Remarks Denies any SOB (Karen Holguin) Cardiovascular Cardiac: BOURGEOIS Cardiac Remarks denies CP (Karen Holguin) Gastrointestinal GI Remarks Denies Abdominal pain (Karen Holguin) Objective Data Data Vital Signs Date Time Temp Pulse Resp B/P (MAP) Pulse Ox O2 Delivery O2 Flow Rate FiO2 10/31/17 12:35 98.6 67 16 121/69 (86) 93 10/31/17 06:00 56 10/31/17 05:00 56 10/31/17 04:00 98.2 66 16 105/51 (69) 95 10/31/17 04:00 56 10/31/17 03:00 58 10/31/17 02:00 58 10/31/17 01:00 58 10/31/17 00:00 65 10/31/17 00:00 98.5 66 17 119/68 (85) 95 10/30/17 22:00 66 10/30/17 20:00 62 10/30/17 20:00 97.0 67 16 142/74 (96) 97 10/30/17 18:00 78 10/30/17 17:00 54 10/30/17 16:17 57 10/30/17 16:00 98.0 55 16 100/52 (68) 97 (Karen Holguin) -: 10/31/17 1329 10/31/17 1329 Physical Exam General Appearance: No Acute Distress, Comfortable (Karen Holguin) Eyes Eye Exam: Pupils Equal (Karen Holguin) Neck Neck Exam: Neck Supple, Trachea Midline (Karen Holguin) Pulmonary Resp Exam: Breath Sounds Equal, No Distress, Rhonchi, Decreased Bases (Karen Holguin) Cardiology CV Exam: Regular, Normal Sinus Rhythm (Karen Holguin) Gastrointestinal/Abdomen GI Exam: Soft, Non-Tender, Bowel Sounds Present (Karen Holguin) Extremeties Extremities Exam: No Edema (Karen Holguin) Neurologic Neuro Exam: Alert, Awake, Oriented (Karen Holguin) Psychiatric Psych Exam: Appropriate Responses (Karen Holguin) Assessment/Plan Assessment Summary: CASANDRA/Acute Renal Failure Electrolyte Assessment: Metabolic Acidosis Problem List: (1) Metastatic melanoma ICD Codes: C79.9 - Secondary malignant neoplasm of unspecified site Status: Acute (2) Anorexia ICD Codes: R63.0 - Anorexia (3) Generalized weakness ICD Codes: R53.1 - Weakness (4) Oral thrush ICD Codes: B37.0 - Candidal stomatitis (5) DM (diabetes mellitus) ICD Codes: E11.9 - Type 2 diabetes mellitus without complications (6) CASANDRA (acute kidney injury) ICD Codes: N17.9 - Acute kidney failure, unspecified Plan Patient has been non oliguric, not much improvement in the renal function. His Creatinine was 0.99 on 10/08/17. Awaiting renal Biopsy results Dialysis yesterday tolerated well with 2 liters removed Has been non oliguric 825 ml of UOP over last 24 hour hours. Creatinine at 2.96 today from 4.46 will arrange for out patient Hd if needed. (Karen Holguin) Plan Creatinine is better, Renal Biopsy report noted. Has ATN, with Glomerulosclerosis and interstitial fibrosis. Possibly already has some improvement in the renal function. Follow BMP in AM and HD as needed. (Tien Styles MD) Karen Holguin Oct 31, 2017 15:19 Tien Styles MD Oct 31, 2017 17:30
[2017-10-31] MEDS: LORazepam 0.5 MG TAB PO PRN ×2 (15:41→23:26)
--- NOTE | 2017-10-31 18:18 | HHI.PR ---
Subjective Remarks Patient not very talkative No fever overnight Denies chest pain or short of breath Objective Vitals Vital Signs Date Time Temp Pulse Resp B/P (MAP) Pulse Ox O2 Delivery O2 Flow Rate FiO2 10/31/17 12:35 98.6 67 16 121/69 (86) 93 10/31/17 06:00 56 10/31/17 05:00 56 10/31/17 04:00 98.2 66 16 105/51 (69) 95 10/31/17 04:00 56 10/31/17 03:00 58 10/31/17 02:00 58 10/31/17 01:00 58 10/31/17 00:00 65 10/31/17 00:00 98.5 66 17 119/68 (85) 95 10/30/17 22:00 66 10/30/17 20:00 62 10/30/17 20:00 97.0 67 16 142/74 (96) 97 I/O 10/30/17 10/30/17 10/30/17 10/31/17 10/31/17 10/31/17 07:00 15:00 23:00 07:00 15:00 23:00 Intake Total 360 ml 600 ml 240 ml Output Total 325 ml 2000 ml 300 ml Balance 35 ml -2000 ml 600 ml -60 ml Intake Oral 360 ml 600 ml 240 ml Output Urine Total 325 ml 300 ml Hemodialysis 2000 ml # Voids 2 # Bowel Movements 1 Result Diagram: 10/31/17 1329 10/31/17 1329 Objective Remarks GENERAL: This is a well-nourished, well-developed patient, in no apparent distress. SKIN: No rashes, warm and dry HEAD: Atraumatic. Normocephalic. EYES: Pupils equal round and reactive. Extraocular motions intact. No scleral icterus. ENT: Nose without bleeding, or drainage, Airway patent. NECK: Trachea midline. Supple CARDIOVASCULAR: Regular rate and rhythm without murmurs, gallops, or rubs. RESPIRATORY: Fair air entry bilaterally. No wheezes, rales, or rhonchi. GASTROINTESTINAL: Abdomen soft, non-tender, nondistended. Positive bowel sounds MUSCULOSKELETAL: Extremities without clubbing, cyanosis, or edema. Pedal pulses appreciated NEUROLOGICAL: Awake and alert. Moves all extremity. Normal speech.no focal neurological deficit Procedures perma-cath placement kidney biopsy A/P Problem List: (1) Metastatic melanoma ICD Code: C79.9 - Secondary malignant neoplasm of unspecified site Status: Acute (2) CASANDRA (acute kidney injury) ICD Code: N17.9 - Acute kidney failure, unspecified (3) Generalized weakness ICD Code: R53.1 - Weakness (4) Anorexia ICD Code: R63.0 - Anorexia (5) Oral thrush ICD Code: B37.0 - Candidal stomatitis (6) DM (diabetes mellitus) ICD Code: E11.9 - Type 2 diabetes mellitus without complications Assessment and Plan 10/31: Creatinine decreased significantly from 10 originally to 4.46 now, appreciate nephrology follow-up, Repeat CBC BMP in a.m., monitor temperature, blood pressure A/P: Metastatic melanoma Continue Decadron Oncology following Acute renal failure/ATN[facility] ACUTE TUBULAR INJURY. 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 ARTERIOSCLEROSIS, SEVERE. Avoid nephrotoxins s/p perma-cath placement HD initiated. Nephrology following. HD per nephrology. Oral thrush Anorexia Continue Diflucan Generalized weakness Likely related to cancer in treatments Acute renal failure could be contributory Physical therapy continued Diabetes mellitus type 2 Follow blood sugars Insulin sliding scale Diabetic diet DVT prophylaxis SCDs Atul Campbell MD Oct 31, 2017 18:18
--- NOTE | 2017-10-31 18:26 | HHI.PR ---
Objective Vitals Vital Signs Date Time Temp Pulse Resp B/P (MAP) Pulse Ox O2 Delivery O2 Flow Rate FiO2 10/31/17 12:35 98.6 67 16 121/69 (86) 93 10/31/17 06:00 56 10/31/17 05:00 56 10/31/17 04:00 98.2 66 16 105/51 (69) 95 10/31/17 04:00 56 10/31/17 03:00 58 10/31/17 02:00 58 10/31/17 01:00 58 10/31/17 00:00 65 10/31/17 00:00 98.5 66 17 119/68 (85) 95 10/30/17 22:00 66 10/30/17 20:00 62 10/30/17 20:00 97.0 67 16 142/74 (96) 97 I/O 10/30/17 10/30/17 10/30/17 10/31/17 10/31/17 10/31/17 07:00 15:00 23:00 07:00 15:00 23:00 Intake Total 360 ml 600 ml 240 ml Output Total 325 ml 2000 ml 300 ml Balance 35 ml -2000 ml 600 ml -60 ml Intake Oral 360 ml 600 ml 240 ml Output Urine Total 325 ml 300 ml Hemodialysis 2000 ml # Voids 2 # Bowel Movements 1 Result Diagram: 10/31/17 1329 10/31/17 1329 Procedures perma-cath placement kidney biopsy A/P Problem List: (1) Metastatic melanoma ICD Code: C79.9 - Secondary malignant neoplasm of unspecified site Status: Acute (2) CASANDRA (acute kidney injury) ICD Code: N17.9 - Acute kidney failure, unspecified (3) Generalized weakness ICD Code: R53.1 - Weakness (4) Anorexia ICD Code: R63.0 - Anorexia (5) Oral thrush ICD Code: B37.0 - Candidal stomatitis (6) DM (diabetes mellitus) ICD Code: E11.9 - Type 2 diabetes mellitus without complications Atul Campbell MD Oct 31, 2017 18:25
[2017-10-31] MEDS: diphenhydrAMINE HCL 25 MG CAP PO PRN (19:40)
[2017-10-31] MEDS: FLUCONAZOLE 100 MG PREMIX BAG 50 ML IV SCH (19:42)
[2017-11-01] VITALS (15 sets, daily range): BP systolic 121–165; BP diastolic 68–86; PULSE 62–79; RESP 16–18; TEMP 97.6–99; O2SAT 93–98
[2017-11-01 07:07] LABS: BICARBONATE 27.4 MEQ/L (21.0-32.0); CREATININE 3.09 MG/DL (0.60-1.30)
[2017-11-01] MEDS: INSULIN ASPART SUPPLEMENTAL SCALE SQ SCH ×4 (08:00→21:00)
[2017-11-01] MEDS: DOCUSATE SODIUM 50 MG/SENNA 8.6 MG TAB PO SCH ×2 (09:00→21:00)
[2017-11-01] MEDS: SODIUM CHLORIDE 0.9% FLUSH 10 ML FLUSH IV FLUSH SCH ×2 (10:16→21:25)
[2017-11-01] MEDS: DEXAMETHASONE SOD PHOS 4 MG/ML VIAL IV PUSH SCH ×2 (10:16→21:24)
--- NOTE | 2017-11-01 11:30 | PD.ONC.PN ---
Subjective Subjective Remarks Afebrile overnight. Patient resting in bed in nad. No complaints. Objective Data Date Time Temp Pulse Resp B/P (MAP) Pulse Ox O2 Delivery O2 Flow Rate FiO2 11/01/17 09:11 98.1 79 16 121/68 (85) 93 11/01/17 06:00 64 11/01/17 05:16 97.6 62 16 126/76 (93) 98 11/01/17 05:00 64 11/01/17 04:00 64 11/01/17 04:00 63 11/01/17 02:00 70 11/01/17 01:00 64 11/01/17 00:00 98.0 68 16 165/86 (112) 98 11/01/17 00:00 66 10/31/17 23:00 110 10/31/17 21:00 60 10/31/17 20:00 98.2 61 16 121/71 (88) 94 10/31/17 20:00 66 10/31/17 19:00 68 10/31/17 16:00 98.5 64 16 127/70 (89) 95 10/31/17 12:35 98.6 67 16 121/69 (86) 93 11/01/17 11/01/17 11/01/17 07:00 15:00 23:00 Intake Total 480 ml Output Total 200 ml Balance 280 ml Result Diagram: 10/31/17 1329 11/01/17 0556 Laboratory Results Laboratory Tests Test 10/31/17 13:29 11/01/17 00:55 11/01/17 05:56 White Blood Count 6.6 TH/MM3 Red Blood Count 3.44 MIL/MM3 Hemoglobin 10.7 GM/DL Hematocrit 30.5 % Mean Corpuscular Volume 88.6 FL Mean Corpuscular Hemoglobin 31.1 PG Mean Corpuscular Hemoglobin Concent 35.0 % Red Cell Distribution Width 15.0 % Platelet Count 149 TH/MM3 Mean Platelet Volume 8.2 FL Blood Urea Nitrogen 40 MG/DL 42 MG/DL Creatinine 2.96 MG/DL 3.09 MG/DL Random Glucose 194 MG/DL 151 MG/DL Calcium Level 7.5 MG/DL 8.0 MG/DL Sodium Level 141 MEQ/L 142 MEQ/L Potassium Level 3.5 MEQ/L 3.2 MEQ/L Chloride Level 104 MEQ/L 105 MEQ/L Carbon Dioxide Level 28.1 MEQ/L 27.4 MEQ/L Anion Gap 9 MEQ/L 10 MEQ/L Estimat Glomerular Filtration Rate 21 ML/MIN 20 ML/MIN Stool C. difficile Toxin (PCR) NEGATIVE Stl C. difficile Toxin Epiderm 027 PRESUMPTIVE NEGATIVE Administered Medications Medications (Trade) Dose Ordered Sig/Benson Route PRN Reason Start Time Stop Time Status Last Admin Dose Admin Dexamethasone Sodium Phosphate (Decadron Inj) 2 mg Q12HR IV PUSH 10/24/17 21:00 11/01/17 10:16 Sodium Chloride (NS Flush) 2 ml BID IV FLUSH 10/24/17 21:00 11/01/17 10:16 Senna/Docusate Sodium (Envin-Colace) 1 tab BID PO 10/24/17 21:00 10/31/17 08:30 Fluconazole/ Sodium Chloride 50 ml @ 50 mls/hr Q24H IV 10/25/17 21:00 10/31/17 19:42 Insulin Aspart (NovoLOG SUPPLEMENTAL SCALE) 1 ACHS SLIDING SCALE SQ 10/25/17 08:00 10/31/17 19:42 Temazepam (Restoril) 15 mg HS PRN PO insomnia 10/25/17 12:30 10/26/17 20:45 Heparin Sodium (Porcine) (Heparin Inj) UNSCH PRN .XX WITH DIALYSIS 10/27/17 14:45 10/30/17 11:54 Gentamicin Sulfate (Gentamicin Inj) 20 mg UNSCH PRN OTHER WITH DIALYSIS 10/27/17 14:45 10/30/17 11:54 Diphenhydramine HCl (Benadryl) 25 mg UNSCH PRN PO for hives/itching/anaphylaxis 10/27/17 14:45 10/31/17 19:40 Lorazepam (Ativan) 0.5 mg Q8H PRN PO ANXIETY 10/31/17 18:45 10/31/17 23:26 Objective Remarks GENERAL: Elderly male, lying in bed in nad. SKIN: Warm and dry. HEAD: Normocephalic. EYES: No injection or drainage. NECK: Supple, trachea midline. CARDIOVASCULAR: Regular rate and rhythm RESPIRATORY: Breath sounds equal bilaterally. No accessory muscle use. GASTROINTESTINAL: Abdomen soft, non-tender, nondistended. EXTREMITIES: No cyanosis NEUROLOGICAL: awake and alert, normal speech. moving all extremities. 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 Plan 1. biopsy results back and reviewed with patient. 2. monitor CBC, BMP. Attending Statement The exam, history, and the medical decision-making described in the above note were completed with the assistance of the mid-level provider. I reviewed and agree with the findings presented. I attest that I had a [id number] encounter with the patient on the same day, and personally performed and documented my assessment and findings in the medical record. Plateau of renal function recovery. No acute complaint. Continue to support, questions answered. Jaimie Shine Nov 01, 2017 11:30 Roberta Smith MD Nov 01, 2017 14:18
[2017-11-01] MEDS: LORazepam 0.5 MG TAB PO PRN ×2 (13:43→21:24)
--- NOTE | 2017-11-01 15:41 | HHI.NPPN ---
Subjective History of Present Illness 72-year-old male with a past medical history of diabetes mellitus, history of metastatic melanoma metastasized to the [employer] and lung was brought to the hospital because of generalized weakness and decreased oral intake. I was called to see the patient because of very high BUN and creatinine. The patient denies any previous history of renal dysfunction, but when he came in his BUN was 93 and the creatinine was 8.2. Additional Remarks Alert and oriented, no SOB. Review of Systems General Constitutional: Fatigue Respiratory Respiratory Remarks Denies any SOB Cardiovascular Cardiac: BOURGEOIS Cardiac Remarks denies CP Gastrointestinal GI Remarks Denies Abdominal pain Objective Data Data Vital Signs Date Time Temp Pulse Resp B/P (MAP) Pulse Ox O2 Delivery O2 Flow Rate FiO2 11/01/17 12:47 98.7 65 16 134/73 (93) 94 11/01/17 09:11 98.1 79 16 121/68 (85) 93 11/01/17 06:00 64 11/01/17 05:16 97.6 62 16 126/76 (93) 98 11/01/17 05:00 64 11/01/17 04:00 64 11/01/17 04:00 63 11/01/17 02:00 70 11/01/17 01:00 64 11/01/17 00:00 98.0 68 16 165/86 (112) 98 11/01/17 00:00 66 10/31/17 23:00 110 10/31/17 21:00 60 10/31/17 20:00 98.2 61 16 121/71 (88) 94 10/31/17 20:00 66 10/31/17 19:00 68 10/31/17 16:00 98.5 64 16 127/70 (89) 95 -: 10/31/17 1329 11/01/17 0556 Physical Exam General Appearance: No Acute Distress, Comfortable Eyes Eye Exam: Pupils Equal Neck Neck Exam: Neck Supple, Trachea Midline Pulmonary Resp Exam: Breath Sounds Equal, No Distress, Rhonchi, Decreased Bases Cardiology CV Exam: Regular, Normal Sinus Rhythm Gastrointestinal/Abdomen GI Exam: Soft, Non-Tender, Bowel Sounds Present Extremeties Extremities Exam: No Edema Neurologic Neuro Exam: Alert, Awake, Oriented Psychiatric Psych Exam: Appropriate Responses Assessment/Plan Assessment Summary: CASANDRA/Acute Renal Failure Electrolyte Assessment: Metabolic Acidosis Problem List: (1) CASANDRA (acute kidney injury) ICD Codes: N17.9 - Acute kidney failure, unspecified Plan: cr higher seen at dialysis UF 2 L K low replace Dr. Styles to decide about shelter dialysis (2) Metastatic melanoma ICD Codes: C79.9 - Secondary malignant neoplasm of unspecified site Status: Acute (3) Anorexia ICD Codes: R63.0 - Anorexia (4) Generalized weakness ICD Codes: R53.1 - Weakness (5) Oral thrush ICD Codes: B37.0 - Candidal stomatitis (6) DM (diabetes mellitus) ICD Codes: E11.9 - Type 2 diabetes mellitus without complications Jose Liang MD Nov 01, 2017 15:41
[2017-11-01] MEDS ORDERED: POTASSIUM CHLORIDE 8 MEQ CONTROLLED RELEASE TAB PO ONE ×2 (15:45→18:00)
[2017-11-01] MEDS ORDERED: POTASSIUM CHLORIDE 10 MEQ CONTROLLED RELEASE TAB PO ONE (15:45)
--- NOTE | 2017-11-01 16:41 | HHI.PR ---
Subjective Remarks Denies any pain, he urinates well Creatinine back up from 2.96-3.09 Continue following with renal Objective Vitals Vital Signs Date Time Temp Pulse Resp B/P (MAP) Pulse Ox O2 Delivery O2 Flow Rate FiO2 11/01/17 12:47 98.7 65 16 134/73 (93) 94 11/01/17 09:11 98.1 79 16 121/68 (85) 93 11/01/17 06:00 64 11/01/17 05:16 97.6 62 16 126/76 (93) 98 11/01/17 05:00 64 11/01/17 04:00 64 11/01/17 04:00 63 11/01/17 02:00 70 11/01/17 01:00 64 11/01/17 00:00 98.0 68 16 165/86 (112) 98 11/01/17 00:00 66 10/31/17 23:00 110 10/31/17 21:00 60 10/31/17 20:00 98.2 61 16 121/71 (88) 94 10/31/17 20:00 66 10/31/17 19:00 68 I/O 10/31/17 10/31/17 10/31/17 11/01/17 11/01/17 11/01/17 07:00 15:00 23:00 07:00 15:00 23:00 Intake Total 240 ml 770 ml 480 ml Output Total 300 ml 200 ml 200 ml Balance -60 ml 570 ml 280 ml Intake Oral 240 ml 720 ml 480 ml IV Total 50 ml Output Urine Total 300 ml 200 ml 200 ml # Voids 1 1 # Bowel Movements 1 3 Result Diagram: 10/31/17 1329 11/01/17 0556 Objective Remarks GENERAL: This is a well-nourished, well-developed patient, in no apparent distress. SKIN: No rashes, warm and dry HEAD: Atraumatic. Normocephalic. EYES: Pupils equal round and reactive. Extraocular motions intact. No scleral icterus. ENT: Nose without bleeding, or drainage, Airway patent. NECK: Trachea midline. Supple CARDIOVASCULAR: Regular rate and rhythm without murmurs, gallops, or rubs. RESPIRATORY: Fair air entry bilaterally. No wheezes, rales, or rhonchi. GASTROINTESTINAL: Abdomen soft, non-tender, nondistended. Positive bowel sounds MUSCULOSKELETAL: Extremities without clubbing, cyanosis, or edema. Pedal pulses appreciated NEUROLOGICAL: Awake and alert. Moves all extremity. Normal speech.no focal neurological deficit Procedures perma-cath placement kidney biopsy A/P Problem List: (1) Metastatic melanoma ICD Code: C79.9 - Secondary malignant neoplasm of unspecified site Status: Acute (2) CASANDRA (acute kidney injury) ICD Code: N17.9 - Acute kidney failure, unspecified (3) Generalized weakness ICD Code: R53.1 - Weakness (4) Anorexia ICD Code: R63.0 - Anorexia (5) Oral thrush ICD Code: B37.0 - Candidal stomatitis (6) DM (diabetes mellitus) ICD Code: E11.9 - Type 2 diabetes mellitus without complications Assessment and Plan 10/31: Creatinine decreased significantly from 10 originally to 4.46 now, appreciate nephrology follow-up, Repeat CBC BMP in a.m., monitor temperature, blood pressure 11/01: Creatinine 3.09 today, renal to decide on further steps or management of possible HD, Repeat CBC BMP in a.m. A/P: Metastatic melanoma Continue Decadron Oncology following Acute renal failure/ATN/global glomerulosclerosis s/p kidnet biopsy-pathology ACUTE TUBULAR INJURY. 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 ARTERIOSCLEROSIS, SEVERE. Avoid nephrotoxins s/p perma-cath placement HD initiated. Nephrology following. HD per nephrology. Oral thrush Anorexia Continue Diflucan Generalized weakness Likely related to cancer in treatments Acute renal failure could be contributory Physical therapy continued Diabetes mellitus type 2 Follow blood sugars Insulin sliding scale Diabetic diet DVT prophylaxis GLORIAs Atul Campbell MD Nov 01, 2017 16:41
[2017-11-01] MEDS: GENTAMICIN SULFATE 20 MG/2 ML VIAL OTHER PRN (16:42)
[2017-11-01] MEDS: HEPARIN SODIUM - IV 10,000 UNITS/10 ML VIAL PRN (16:42)
[2017-11-01] MEDS: FLUCONAZOLE 100 MG PREMIX BAG 50 ML IV SCH (21:31)
[2017-11-02] VITALS (15 sets, daily range): BP systolic 108–148; BP diastolic 60–78; PULSE 62–86; RESP 16; TEMP 98.2–99.5; O2SAT 91–96
[2017-11-02] MEDS: LORazepam 0.5 MG TAB PO PRN ×2 (05:29→21:35)
[2017-11-02 07:41] LABS: AUTOMATED NEUTROPHIL # 3.7 TH/MM3 (1.8-7.7); BASOPHIL % 0.4 % (0.0-2.0); EOSINOPHIL # 0.1 TH/MM3 (0-0.4); EOSINOPHIL % 1.2 % (0.0-4.0); HEMATOCRIT 31.6 % (39.0-51.0); LYMPH % 18.2 % (9.0-44.0); LYMPHOCYTE # 0.9 TH/MM3 (1.0-4.8); MEAN CELL VOLUME 88.8 FL (80.0-100.0); MEAN CORPUSCULAR HEMOGLOBIN 30.9 PG (27.0-34.0); MEAN CORPUSCULAR HGB CONC 34.8 % (32.0-36.0); MEAN PLATELET VOLUME 8.3 FL (7.0-11.0); MONO % 5.9 % (0.0-8.0); MONOCYTE # 0.3 TH/MM3 (0-0.9); NEUT % 74.3 % (16.0-70.0); PLATELET COUNT 175 TH/MM3 (150-450); RED BLOOD COUNT 3.56 MIL/MM3 (4.50-5.90); RED CELL DISTRIBUTION WIDTH 14.8 % (11.6-17.2)
[2017-11-02 08:00] LABS: BICARBONATE 29.5 MEQ/L (21.0-32.0); CALCIUM 7.7 MG/DL (8.5-10.1); CREATININE 2.09 MG/DL (0.60-1.30)
[2017-11-02] MEDS: DOCUSATE SODIUM 50 MG/SENNA 8.6 MG TAB PO SCH ×2 (09:00→21:00)
[2017-11-02] MEDS ORDERED: POTASSIUM CHLORIDE 20 MEQ CONTROLLED RELEASE TAB PO ONE (09:30)
[2017-11-02] MEDS: DEXAMETHASONE SOD PHOS 4 MG/ML VIAL IV PUSH SCH ×2 (09:44→21:34)
[2017-11-02] MEDS: SODIUM CHLORIDE 0.9% FLUSH 10 ML FLUSH IV FLUSH SCH ×2 (09:44→21:53)
[2017-11-02] MEDS: INSULIN ASPART SUPPLEMENTAL SCALE SQ SCH ×4 (10:00→21:00)
--- NOTE | 2017-11-02 11:00 | PD.ONC.PN ---
Subjective Subjective Remarks Afebrile overnight. Patient resting in bed in nad. No complaints. Friend at bedside. Objective Data Date Time Temp Pulse Resp B/P (MAP) Pulse Ox O2 Delivery O2 Flow Rate FiO2 11/02/17 09:32 98.7 78 16 148/77 (100) 11/02/17 06:00 62 11/02/17 05:28 98.6 77 16 127/78 (94) 94 11/02/17 05:00 64 11/02/17 04:02 66 11/02/17 03:00 64 11/02/17 02:00 64 11/02/17 01:00 64 11/02/17 00:21 99.1 80 16 134/77 (96) 94 11/02/17 00:07 74 11/01/17 23:00 70 11/01/17 22:00 74 11/01/17 21:34 99.0 76 18 144/77 (99) 94 11/01/17 21:00 74 11/01/17 20:06 78 11/01/17 19:00 78 11/01/17 12:47 98.7 65 16 134/73 (93) 94 11/02/17 11/02/17 11/02/17 07:00 15:00 23:00 Intake Total 290 ml Output Total 100 ml Balance 190 ml Result Diagram: 11/02/1762411/02/17624 Laboratory Results Laboratory Tests Test 11/02/17 06:25 White Blood Count 5.0 TH/MM3 Red Blood Count 3.56 MIL/MM3 Hemoglobin 11.0 GM/DL Hematocrit 31.6 % Mean Corpuscular Volume 88.8 FL Mean Corpuscular Hemoglobin 30.9 PG Mean Corpuscular Hemoglobin Concent 34.8 % Red Cell Distribution Width 14.8 % Platelet Count 175 TH/MM3 Mean Platelet Volume 8.3 FL Neutrophils (%) (Auto) 74.3 % Lymphocytes (%) (Auto) 18.2 % Monocytes (%) (Auto) 5.9 % Eosinophils (%) (Auto) 1.2 % Basophils (%) (Auto) 0.4 % Neutrophils # (Auto) 3.7 TH/MM3 Lymphocytes # (Auto) 0.9 TH/MM3 Monocytes # (Auto) 0.3 TH/MM3 Eosinophils # (Auto) 0.1 TH/MM3 Basophils # (Auto) 0.0 TH/MM3 CBC Comment DIFF FINAL Differential Comment Blood Urea Nitrogen 25 MG/DL Creatinine 2.09 MG/DL Random Glucose 163 MG/DL Calcium Level 7.7 MG/DL Sodium Level 141 MEQ/L Potassium Level 3.3 MEQ/L Chloride Level 104 MEQ/L Carbon Dioxide Level 29.5 MEQ/L Anion Gap 8 MEQ/L Estimat Glomerular Filtration Rate 31 ML/MIN Administered Medications Medications (Trade) Dose Ordered Sig/Benson Route PRN Reason Start Time Stop Time Status Last Admin Dose Admin Dexamethasone Sodium Phosphate (Decadron Inj) 2 mg Q12HR IV PUSH 10/24/17 21:00 11/02/17 09:44 Sodium Chloride (NS Flush) 2 ml BID IV FLUSH 10/24/17 21:00 11/02/17 09:44 Senna/Docusate Sodium (Nevin-Colace) 1 tab BID PO 10/24/17 21:00 10/31/17 08:30 Fluconazole/ Sodium Chloride 50 ml @ 50 mls/hr Q24H IV 10/25/17 21:00 11/01/17 21:31 Insulin Aspart (NovoLOG SUPPLEMENTAL SCALE) 1 ACHS SLIDING SCALE SQ 10/25/17 08:00 11/02/17 10:00 Temazepam (Restoril) 15 mg HS PRN PO insomnia 10/25/17 12:30 10/26/17 20:45 Sodium Chloride 1,000 ml @ 200 mls/hr Q5H PRN IV WITH DIALYSIS 10/27/17 14:38 11/01/17 16:42 Heparin Sodium (Porcine) (Heparin Inj) UNSCH PRN .XX WITH DIALYSIS 10/27/17 14:45 11/01/17 16:42 Gentamicin Sulfate (Gentamicin Inj) 20 mg UNSCH PRN OTHER WITH DIALYSIS 10/27/17 14:45 11/01/17 16:42 Diphenhydramine HCl (Benadryl) 25 mg UNSCH PRN PO for hives/itching/anaphylaxis 10/27/17 14:45 10/31/17 19:40 Lorazepam (Ativan) 0.5 mg Q8H PRN PO ANXIETY 10/31/17 18:45 11/02/17 05:29 Objective Remarks GENERAL: Elderly male supine in bed, resting. SKIN: Warm and dry. HEAD: Normocephalic. EYES: No injection or drainage. NECK: Supple, trachea midline. CARDIOVASCULAR: Regular rate and rhythm RESPIRATORY: Breath sounds equal bilaterally. No accessory muscle use. GASTROINTESTINAL: Abdomen soft, non-tender, nondistended. EXTREMITIES: No cyanosis or edema. NEUROLOGICAL: no focal deficit. 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 Plan 1. creatinine continuing to improve. monitor 2. d/c home when cleared by nephrology Attending Statement The exam, history, and the medical decision-making described in the above note were completed with the assistance of the mid-level provider. I reviewed and agree with the findings presented. I attest that I had a [id number] encounter with the patient on the same day, and personally performed and documented my assessment and findings in the medical record. Anxious asking about his prognosis, about renal function but what really wants to know if he was going to this weekend. Answered questions and provided emotional support. Explained biopsy results and encourage to follow up with discussing with nephrology. No dialysis today. Defer to Dr. Randhawa treatment of his metastatic malignant melanoma. Jaimie Shine Nov 02, 2017 11:00 Roberta Smith MD Nov 02, 2017 23:57
--- NOTE | 2017-11-02 13:20 | HHI.NPPN ---
Subjective History of Present Illness 72-year-old male with a past medical history of diabetes mellitus, history of metastatic melanoma metastasized to the [employer] and lung was brought to the hospital because of generalized weakness and decreased oral intake. I was called to see the patient because of very high BUN and creatinine. The patient denies any previous history of renal dysfunction, but when he came in his BUN was 93 and the creatinine was 8.2. Additional Remarks Alert and oriented, no SOB. Review of Systems General Constitutional: Fatigue Respiratory Respiratory Remarks Denies any SOB Cardiovascular Cardiac: BOURGEOIS Cardiac Remarks denies CP Gastrointestinal GI Remarks Denies Abdominal pain Objective Data Data Vital Signs Date Time Temp Pulse Resp B/P (MAP) Pulse Ox O2 Delivery O2 Flow Rate FiO2 11/02/17 12:03 98.2 80 16 124/78 (93) 91 11/02/17 09:32 98.7 78 16 148/77 (100) 11/02/17 06:00 62 11/02/17 05:28 98.6 77 16 127/78 (94) 94 11/02/17 05:00 64 11/02/17 04:02 66 11/02/17 03:00 64 11/02/17 02:00 64 11/02/17 01:00 64 11/02/17 00:21 99.1 80 16 134/77 (96) 94 11/02/17 00:07 74 11/01/17 23:00 70 11/01/17 22:00 74 11/01/17 21:34 99.0 76 18 144/77 (99) 94 11/01/17 21:00 74 11/01/17 20:06 78 11/01/17 19:00 78 -: 11/02/17 0625 11/02/17 0625 Physical Exam General Appearance: No Acute Distress, Comfortable Eyes Eye Exam: Pupils Equal Neck Neck Exam: Neck Supple, Trachea Midline Pulmonary Resp Exam: Breath Sounds Equal, No Distress, Rhonchi, Decreased Bases Cardiology CV Exam: Regular, Normal Sinus Rhythm Gastrointestinal/Abdomen GI Exam: Soft, Non-Tender, Bowel Sounds Present Extremeties Extremities Exam: No Edema Neurologic Neuro Exam: Alert, Awake, Oriented Psychiatric Psych Exam: Appropriate Responses Assessment/Plan Assessment Summary: CASANDRA/Acute Renal Failure Electrolyte Assessment: Metabolic Acidosis Problem List: (1) CASANDRA (acute kidney injury) ICD Codes: N17.9 - Acute kidney failure, unspecified Plan: cr better post dialysis UF 2 L yesterday K low replace Dr. Styles to decide about supervisor grading dialysis (2) Metastatic melanoma ICD Codes: C79.9 - Secondary malignant neoplasm of unspecified site Status: Acute (3) Anorexia ICD Codes: R63.0 - Anorexia (4) Generalized weakness ICD Codes: R53.1 - Weakness (5) Oral thrush ICD Codes: B37.0 - Candidal stomatitis (6) DM (diabetes mellitus) ICD Codes: E11.9 - Type 2 diabetes mellitus without complications Jose Liang MD Nov 02, 2017 13:20
[2017-11-02] MEDS: FLUCONAZOLE 100 MG PREMIX BAG 50 ML IV SCH (21:53)
--- NOTE | 2017-11-02 23:44 | HHI.PR ---
Subjective Remarks Resting comfortably in bed No event overnight Denied chest and or short of breath No fever or chills Objective Vitals Vital Signs Date Time Temp Pulse Resp B/P (MAP) Pulse Ox O2 Delivery O2 Flow Rate FiO2 11/02/17 21:44 99.5 86 16 108/60 (76) 96 11/02/17 16:02 98.3 76 16 117/73 (88) 94 11/02/17 12:03 98.2 80 16 124/78 (93) 91 11/02/17 12:00 75 11/02/17 09:32 81 11/02/17 09:32 98.7 78 16 148/77 (100) 11/02/17 06:00 62 11/02/17 05:28 98.6 77 16 127/78 (94) 94 11/02/17 05:00 64 11/02/17 04:02 66 11/02/17 03:00 64 11/02/17 02:00 64 11/02/17 01:00 64 11/02/17 00:21 99.1 80 16 134/77 (96) 94 11/02/17 00:07 74 I/O 11/02/17 11/02/17 11/02/17 11/03/17 11/03/17 11/03/17 07:00 15:00 23:00 07:00 15:00 23:00 Intake Total 290 ml 480 ml Output Total 100 ml 150 ml Balance 190 ml 330 ml Intake Oral 240 ml 480 ml IV Total 50 ml Output Urine Total 100 ml 150 ml # Bowel Movements 1 3 Result Diagram: 11/02/1762411/02/17 0625 Objective Remarks GENERAL: This is a well-nourished, well-developed patient, in no apparent distress. SKIN: No rashes, warm and dry HEAD: Atraumatic. Normocephalic. EYES: Pupils equal round and reactive. Extraocular motions intact. No scleral icterus. ENT: Nose without bleeding, or drainage, Airway patent. NECK: Trachea midline. Supple CARDIOVASCULAR: Regular rate and rhythm without murmurs, gallops, or rubs. RESPIRATORY: Fair air entry bilaterally. No wheezes, rales, or rhonchi. GASTROINTESTINAL: Abdomen soft, non-tender, nondistended. Positive bowel sounds MUSCULOSKELETAL: Extremities without clubbing, cyanosis, or edema. Pedal pulses appreciated NEUROLOGICAL: Awake and alert. Moves all extremity. Normal speech.no focal neurological deficit Procedures perma-cath placement kidney biopsy A/P Problem List: (1) Metastatic melanoma ICD Code: C79.9 - Secondary malignant neoplasm of unspecified site Status: Acute (2) CASANDRA (acute kidney injury) ICD Code: N17.9 - Acute kidney failure, unspecified (3) Generalized weakness ICD Code: R53.1 - Weakness (4) Anorexia ICD Code: R63.0 - Anorexia (5) Oral thrush ICD Code: B37.0 - Candidal stomatitis (6) DM (diabetes mellitus) ICD Code: E11.9 - Type 2 diabetes mellitus without complications Assessment and Plan 11/02: Creatinine 2.09, follow with renal, repeat BMP in a.m., improved urine output A/P: Metastatic melanoma Continue Decadron Oncology following Acute renal failure/ATN/global glomerulosclerosis s/p kidnet biopsy-pathology ACUTE TUBULAR INJURY. 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 ARTERIOSCLEROSIS, SEVERE. Avoid nephrotoxins s/p perma-cath placement HD initiated. Nephrology following. HD per nephrology. Oral thrush Anorexia Continue Diflucan Generalized weakness Likely related to cancer in treatments Acute renal failure could be contributory Physical therapy continued Diabetes mellitus type 2 Follow blood sugars Insulin sliding scale Diabetic diet DVT prophylaxis Atul Trimble MD Nov 02, 2017 23:44
[2017-11-03] VITALS (14 sets, daily range): BP systolic 118–134; BP diastolic 65–82; PULSE 69–100; RESP 16–18; TEMP 97.6–98.9; O2SAT 92–97
[2017-11-03 08:14] LABS: BICARBONATE 25.9 MEQ/L (21.0-32.0); CALCIUM 7.7 MG/DL (8.5-10.1); CREATININE 2.5 MG/DL (0.60-1.30)
[2017-11-03] MEDS: DOCUSATE SODIUM 50 MG/SENNA 8.6 MG TAB PO SCH ×2 (09:00→20:44)
[2017-11-03] MEDS: DEXAMETHASONE SOD PHOS 4 MG/ML VIAL IV PUSH SCH ×2 (09:36→20:43)
[2017-11-03] MEDS: SODIUM CHLORIDE 0.9% FLUSH 10 ML FLUSH IV FLUSH SCH ×2 (09:37→20:43)
[2017-11-03] MEDS: INSULIN ASPART SUPPLEMENTAL SCALE SQ SCH ×4 (09:37→20:38)
--- NOTE | 2017-11-03 11:22 | PD.ONC.PN ---
Subjective Subjective Remarks Requesting to go to rehabilitation Still feeling down No appetite Objective Data Date Time Temp Pulse Resp B/P (MAP) Pulse Ox O2 Delivery O2 Flow Rate FiO2 11/03/17 09:35 97.6 76 16 131/82 (98) 97 11/03/17 06:00 82 11/03/17 05:47 98.4 69 16 130/77 (94) 96 11/03/17 05:00 80 11/03/17 04:06 86 11/03/17 03:00 70 11/03/17 02:00 80 11/03/17 01:00 84 11/03/17 00:56 98.9 87 16 118/65 (82) 92 11/03/17 00:00 80 11/02/17 21:44 99.5 86 16 108/60 (76) 96 11/02/17 20:01 78 11/02/17 16:02 98.3 76 16 117/73 (88) 94 11/02/17 12:03 98.2 80 16 124/78 (93) 91 11/02/17 12:00 75 11/03/17 11/03/17 11/03/17 07:00 15:00 23:00 Intake Total 240 ml Output Total 0 ml Balance 240 ml Result Diagram: 11/02/17 0625 11/03/17 0550 Laboratory Results Laboratory Tests Test 11/03/17 05:50 Blood Urea Nitrogen 34 MG/DL Creatinine 2.50 MG/DL Random Glucose 163 MG/DL Calcium Level 7.7 MG/DL Sodium Level 142 MEQ/L Potassium Level 3.2 MEQ/L Chloride Level 104 MEQ/L Carbon Dioxide Level 25.9 MEQ/L Anion Gap 12 MEQ/L Estimat Glomerular Filtration Rate 26 ML/MIN Administered Medications Medications (Trade) Dose Ordered Sig/Benson Route PRN Reason Start Time Stop Time Status Last Admin Dose Admin Dexamethasone Sodium Phosphate (Decadron Inj) 2 mg Q12HR IV PUSH 10/24/17 21:00 11/03/17 09:36 Sodium Chloride (NS Flush) 2 ml BID IV FLUSH 10/24/17 21:00 11/03/17 09:37 Senna/Docusate Sodium (Nevin-Colace) 1 tab BID PO 10/24/17 21:00 10/31/17 08:30 Fluconazole/ Sodium Chloride 50 ml @ 50 mls/hr Q24H IV 2/10/18 21:00 11/02/17 21:53 Insulin Aspart (NovoLOG SUPPLEMENTAL SCALE) 1 ACHS SLIDING SCALE SQ 10/25/17 08:00 11/03/17 09:37 Temazepam (Restoril) 15 mg HS PRN PO insomnia 10/25/17 12:30 10/26/17 20:45 Sodium Chloride 1,000 ml @ 200 mls/hr Q5H PRN IV WITH DIALYSIS 10/27/17 14:38 11/01/17 16:42 Heparin Sodium (Porcine) (Heparin Inj) UNSCH PRN .XX WITH DIALYSIS 10/27/17 14:45 11/01/17 16:42 Gentamicin Sulfate (Gentamicin Inj) 20 mg UNSCH PRN OTHER WITH DIALYSIS 10/27/17 14:45 11/01/17 16:42 Diphenhydramine HCl (Benadryl) 25 mg UNSCH PRN PO for hives/itching/anaphylaxis 10/27/17 14:45 10/31/17 19:40 Lorazepam (Ativan) 0.5 mg Q8H PRN PO ANXIETY 10/31/17 18:45 11/02/17 21:35 Objective Remarks GENERAL: Fatigued appearing older male resting in bed in no obvious distress. SKIN: Warm and dry. HEAD: Normocephalic. EYES:No injection or drainage. NECK: Supple, trachea midline. CARDIOVASCULAR: Regular rate and rhythm without murmurs. RESPIRATORY: Breath sounds equal bilaterally. No accessory muscle use. GASTROINTESTINAL: Abdomen soft, non-tender, nondistended. EXTREMITIES: No cyanosis, or edema. MUSCULOSKELETAL: Generalized weakness NEUROLOGICAL: No obvious focal deficit. Awake, alert, and oriented x3. 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 He received presented in February 2015 when a melanoma versus removed from the tip of the nose. Unfortunately this progressed and he had a second surgery in May 2015 as it has grown back. In August 2017 he became acutely ill with memory problems and gait problems and was found to have metastatic disease to the brain. He is status post whole brain radiation therapy completed 2 weeks ago. Over the past several weeks he has had increased weakness fatigue and loss of appetite. He's also had increased vomiting. On admission he was found to have acute renal failure. Assessment 72y/o male with metastatic melanoma to brain and lungs admitted in ARF --Creatinine on 10/08 was 0.99. Plan Creatinine unfortunately increased today. Dr. Randhawa has spoken with Dr. Styles. Will attempt to try to get patient to [place] rehabilitation as he is quite physically deconditioned due to prolonged hospitalization and acute events. Would like to eventually get him home and will discuss options with a family member of pt's choosing of he would like. Attending Statement The exam, history, and the medical decision-making described in the above note were completed with the assistance of the mid-level provider. I reviewed and agree with the findings presented. I attest that I had a [id number] encounter with the patient on the same day, and personally performed and documented my assessment and findings in the medical record. cognitive function better today but he remains very discouraged and profoundly debilitated. I do not think it will be safe for him to return home. I want him to go to [place] for physical therapy. This will allow me and Dr. Styles to monitor his progress as he is hardly "in the clear". It will be important to see if his creatinine stabilizes over the next few days. In spite of the renal bx, we do not have an explanation for the acute renal deterioration. At this point will stop the Diflucan and decrease the Decadron to 2 mg a day. The 4 mg dose is likely to suppress the immune response that we solicit with his therapy and ultimately we need two things- resolution of renal failure and eradication of disease in the brain and lung. I discussed much of this with his brother by phone today Erma East Nov 03, 2017 11:22 Jorge L Randhawa MD Nov 03, 2017 19:04
--- NOTE | 2017-11-03 14:35 | HHI.NPPN ---
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 I was called to see the patient because of very high BUN and creatinine. The patient denies any previous history of renal dysfunction, but when he came in his BUN was 93 and the creatinine was 8.2. Additional Remarks Patient is awake, seen in AM, no SOB, not in distress. Review of Systems General Constitutional: Fatigue Respiratory Respiratory Remarks Denies any SOB Cardiovascular Cardiac: BOURGEOIS Cardiac Remarks denies CP Gastrointestinal GI Remarks Denies Abdominal pain Objective Data Data Vital Signs Date Time Temp Pulse Resp B/P (MAP) Pulse Ox O2 Delivery O2 Flow Rate FiO2 11/03/17 11:45 98.4 75 16 128/73 (91) 95 11/03/17 09:35 97.6 76 16 131/82 (98) 97 11/03/17 06:00 82 11/03/17 05:47 98.4 69 16 130/77 (94) 96 11/03/17 05:00 80 11/03/17 04:06 86 11/03/17 03:00 70 11/03/17 02:00 80 11/03/17 01:00 84 11/03/17 00:56 98.9 87 16 118/65 (82) 92 11/03/17 00:00 80 11/02/17 21:44 99.5 86 16 108/60 (76) 96 11/02/17 20:01 78 11/02/17 16:02 98.3 76 16 117/73 (88) 94 -: 11/02/17 0625 11/03/17 0550 Physical Exam General Appearance: No Acute Distress, Comfortable Eyes Eye Exam: Pupils Equal Neck Neck Exam: Neck Supple, Trachea Midline Pulmonary Resp Exam: Breath Sounds Equal, No Distress, Rhonchi, Decreased Bases Cardiology CV Exam: Regular, Normal Sinus Rhythm Gastrointestinal/Abdomen GI Exam: Soft, Non-Tender, Bowel Sounds Present Extremeties Extremities Exam: No Edema Neurologic Neuro Exam: Alert, Awake, Oriented Psychiatric Psych Exam: Appropriate Responses Assessment/Plan Assessment Summary: CASANDRA/Acute Renal Failure Electrolyte Assessment: Metabolic Acidosis Problem List: (1) CASANDRA (acute kidney injury) ICD Codes: N17.9 - Acute kidney failure, unspecified Plan: Patient has CASANDRA, with some chronic changes in the Kidney Biopsy. HD was done on Sat. So far now has been non oliguric. CASANDRA is mainly due to ATN. Creatinine increase from 2.0-2.5, follow Creatinine in AM, if same or better, possibly can hold HD. If not then will start arrangement for out patient HD. (2) Metastatic melanoma ICD Codes: C79.9 - Secondary malignant neoplasm of unspecified site Status: Acute (3) Anorexia ICD Codes: R63.0 - Anorexia (4) Generalized weakness ICD Codes: R53.1 - Weakness (5) Oral thrush ICD Codes: B37.0 - Candidal stomatitis (6) DM (diabetes mellitus) ICD Codes: E11.9 - Type 2 diabetes mellitus without complications Tien Styles MD Nov 03, 2017 14:35
--- NOTE | 2017-11-03 18:53 | HHI.PR ---
Subjective Remarks Patient telling me they are working with the case liner for a transfer to [facility] In general doing well no acute issue Objective Vitals Vital Signs Date Time Temp Pulse Resp B/P (MAP) Pulse Ox O2 Delivery O2 Flow Rate FiO2 11/03/17 16:00 78 18 134/75 (94) 96 11/03/17 11:45 98.4 75 16 128/73 (91) 95 11/03/17 09:35 97.6 76 16 131/82 (98) 97 11/03/17 06:00 82 11/03/17 05:47 98.4 69 16 130/77 (94) 96 11/03/17 05:00 80 11/03/17 04:06 86 11/03/17 03:00 70 11/03/17 02:00 80 11/03/17 01:00 84 11/03/17 00:56 98.9 87 16 118/65 (82) 92 11/03/17 00:00 80 11/02/17 21:44 99.5 86 16 108/60 (76) 96 11/02/17 20:01 78 I/O 11/02/17 11/02/17 11/02/17 11/03/17 11/03/17 11/03/17 07:00 15:00 23:00 07:00 15:00 23:00 Intake Total 290 ml 530 ml 240 ml 1200 ml Output Total 100 ml 150 ml 0 ml 400 ml Balance 190 ml 380 ml 240 ml 800 ml Intake Oral 240 ml 480 ml 240 ml 1200 ml IV Total 50 ml 50 ml Output Urine Total 100 ml 150 ml 0 ml 400 ml # Voids 3 # Bowel Movements 1 4 2 3 Result Diagram: 11/02/17 0625 11/03/17 0550 Objective Remarks GENERAL: This is a well-nourished, well-developed patient, in no apparent distress. SKIN: No rashes, warm and dry HEAD: Atraumatic. Normocephalic. EYES: Pupils equal round and reactive. Extraocular motions intact. No scleral icterus. ENT: Nose without bleeding, or drainage, Airway patent. NECK: Trachea midline. Supple CARDIOVASCULAR: Regular rate and rhythm without murmurs, gallops, or rubs. RESPIRATORY: Fair air entry bilaterally. No wheezes, rales, or rhonchi. GASTROINTESTINAL: Abdomen soft, non-tender, nondistended. Positive bowel sounds MUSCULOSKELETAL: Extremities without clubbing, cyanosis, or edema. Pedal pulses appreciated NEUROLOGICAL: Awake and alert. Moves all extremity. Normal speech.no focal neurological deficit Procedures perma-cath placement kidney biopsy A/P Problem List: (1) Metastatic melanoma ICD Code: C79.9 - Secondary malignant neoplasm of unspecified site Status: Acute (2) CASANDRA (acute kidney injury) ICD Code: N17.9 - Acute kidney failure, unspecified (3) Generalized weakness ICD Code: R53.1 - Weakness (4) Anorexia ICD Code: R63.0 - Anorexia (5) Oral thrush ICD Code: B37.0 - Candidal stomatitis (6) DM (diabetes mellitus) ICD Code: E11.9 - Type 2 diabetes mellitus without complications Assessment and Plan 11/02: Creatinine 2.09, follow with renal, repeat BMP in a.m., improved urine output 11/03: Patient cleared by hematology oncology, appreciate nephrology follow-up, they are planning on repeating BMP tomorrow if worsening they will start arrangement for hemodialysis outpatient, however it is about the same like today or last they can hold on hemodialysis, A/P: Metastatic melanoma Continue Decadron Oncology following Acute renal failure/ATN/global glomerulosclerosis s/p kidnet biopsy-pathology ACUTE TUBULAR INJURY. 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 ARTERIOSCLEROSIS, SEVERE. Avoid nephrotoxins s/p perma-cath placement HD initiated. Nephrology following. HD per nephrology. Oral thrush Anorexia Continue Diflucan Generalized weakness Likely related to cancer in treatments Acute renal failure could be contributory Physical therapy continued Diabetes mellitus type 2 Follow blood sugars Insulin sliding scale Diabetic diet DVT prophylaxis SCDs Atul Campbell MD Nov 03, 2017 18:53
[2017-11-03] MEDS: FLUCONAZOLE 100 MG PREMIX BAG 50 ML IV SCH (20:43)
[2017-11-03] MEDS: LORazepam 0.5 MG TAB PO PRN (20:43)
[2017-11-04] VITALS (15 sets, daily range): BP systolic 110–122; BP diastolic 62–71; PULSE 56–117; RESP 16–20; TEMP 97.6–98.7; O2SAT 94–96
[2017-11-04 07:29] LABS: BICARBONATE 23.4 MEQ/L (21.0-32.0); CALCIUM 7.8 MG/DL (8.5-10.1); CREATININE 2.55 MG/DL (0.60-1.30)
[2017-11-04] MEDS: INSULIN ASPART SUPPLEMENTAL SCALE SQ SCH ×4 (08:00→21:00)
[2017-11-04] MEDS: DEXAMETHASONE SOD PHOS 4 MG/ML VIAL IV PUSH SCH (08:29)
[2017-11-04] MEDS: DOCUSATE SODIUM 50 MG/SENNA 8.6 MG TAB PO SCH ×2 (09:00→21:11)
[2017-11-04] MEDS: SODIUM CHLORIDE 0.9% FLUSH 10 ML FLUSH IV FLUSH SCH ×2 (09:00→21:11)
--- NOTE | 2017-11-04 09:36 | HHI.FF ---
Face to Face Verification Diagnosis: (1) CASANDRA (acute kidney injury) (2) DM (diabetes mellitus) (3) Generalized weakness (4) UTI (urinary tract infection) Physical Therapy Order: Evaluate and Treat Occupational Therapy Order: Evaluate and Treat Home Health Nursing Order: Medical education Nursing assessment with vital signs I have seen patient Luis Mello on 11/04/17. My clinical findings support the need for the requested home health care services because: Ltd mobility - disease progression I certify that my clinical findings support that this patient is homebound because: Unsafe to leave home unassisted Atul Campbell MD Nov 04, 2017 09:36
--- NOTE | 2017-11-04 14:49 | PD.ONC.PN ---
Subjective Subjective Remarks Afebrile overnight. Patient resting in bed. frustrated that he is still in the hospital. son at bedside. still has very little appetite. Objective Data Date Time Temp Pulse Resp B/P (MAP) Pulse Ox O2 Delivery O2 Flow Rate FiO2 11/04/17 12:00 112 11/04/17 11:47 98.2 79 20 122/71 (88) 95 11/04/17 09:22 117 11/04/17 08:00 97.6 70 18 113/70 (84) 94 11/04/17 04:31 97.9 68 16 121/71 (88) 94 11/04/17 04:00 58 11/04/17 00:08 98.2 72 16 119/69 (86) 94 11/04/17 00:00 66 11/03/17 20:36 98.5 100 18 119/72 (88) 97 11/03/17 20:00 72 11/03/17 16:00 78 18 134/75 (94) 96 Result Diagram: 11/02/17 0625 11/04/17 0553 Laboratory Results Laboratory Tests Test 11/04/17 05:53 Blood Urea Nitrogen 41 MG/DL Creatinine 2.55 MG/DL Random Glucose 153 MG/DL Calcium Level 7.8 MG/DL Sodium Level 139 MEQ/L Potassium Level 3.1 MEQ/L Chloride Level 103 MEQ/L Carbon Dioxide Level 23.4 MEQ/L Anion Gap 13 MEQ/L Estimat Glomerular Filtration Rate 25 ML/MIN Administered Medications Medications (Trade) Dose Ordered Sig/Benson Route PRN Reason Start Time Stop Time Status Last Admin Dose Admin Dexamethasone Sodium Phosphate (Decadron Inj) 2 mg Q12HR IV PUSH 10/24/17 21:00 11/04/17 08:29 Sodium Chloride (NS Flush) 2 ml BID IV FLUSH 10/24/17 21:00 11/04/17 09:00 Senna/Docusate Sodium (Nevin-Colace) 1 tab BID PO 10/24/17 21:00 10/31/17 08:30 Fluconazole/ Sodium Chloride 50 ml @ 50 mls/hr Q24H IV 10/25/17 21:00 11/03/17 20:43 Insulin Aspart (NovoLOG SUPPLEMENTAL SCALE) 1 ACHS SLIDING SCALE SQ 10/25/17 08:00 11/04/17 12:00 Temazepam (Restoril) 15 mg HS PRN PO insomnia 10/25/17 12:30 10/26/17 20:45 Sodium Chloride 1,000 ml @ 200 mls/hr Q5H PRN IV WITH DIALYSIS 10/27/17 14:38 11/01/17 16:42 Heparin Sodium (Porcine) (Heparin Inj) UNSCH PRN .XX WITH DIALYSIS 10/27/17 14:45 11/01/17 16:42 Gentamicin Sulfate (Gentamicin Inj) 20 mg UNSCH PRN OTHER WITH DIALYSIS 10/27/17 14:45 11/01/17 16:42 Diphenhydramine HCl (Benadryl) 25 mg UNSCH PRN PO for hives/itching/anaphylaxis 10/27/17 14:45 10/31/17 19:40 Lorazepam (Ativan) 0.5 mg Q8H PRN PO ANXIETY 10/31/17 18:45 11/03/17 20:43 Objective Remarks GENERAL: Middle aged male, sitting up in bed, appears depressed. SKIN: Warm and dry. HEAD: Normocephalic. EYES: No scleral icterus. No injection or drainage. NECK: Supple, trachea midline. CARDIOVASCULAR: Regular rate and rhythm RESPIRATORY: Breath sounds equal bilaterally. No accessory muscle use. GASTROINTESTINAL: Abdomen soft, non-tender, nondistended. EXTREMITIES: No cyanosis NEUROLOGICAL: No obvious focal deficit. Awake, alert, and oriented x3. Assessment/Plan Assessment 72y/o male with metastatic melanoma to brain and lungs admitted in ARF, now creatinine improved but still elevated. --Creatinine on 10/08 was 0.99. Plan 1. Malnutrition: change diet to regular--patient eating very little. I am hoping by increasing his food choices his intake will improve. will wait to start appetite stimulant bc marinol can alter thought processes and the patient is already depressed and megace will increase his risk of developing a blood clot. 2. metastatic melanoma: this is a very complex patient with multiple conflicting medical issues. for now we are going to hold further treatment and monitor renal function while he is at rehab. 3. Deconditioning: patient is very deconditioned both from treatment and from prolonged hospitalization. would recommend discharge to rehab. we would prefer [facility]. Attending Statement The exam, history, and the medical decision-making described in the above note were completed with the assistance of the mid-level provider. I reviewed and agree with the findings presented. I attest that I had a [id number] encounter with the patient on the same day, and personally performed and documented my assessment and findings in the medical record. 1: spoke with Dr. Zhong and with patient and son for at least 30 minutes. Plan is to continue supportive care and make decision about further immune therapy in the future when we have had a chance to evaluate impact of current treatments. Have started Celexa for depression and low dose of Marinol for appetite. Will monitor to see if it causes SPRING COILER problems. If his situation deteriorates with little no chance of improvement will use hospice 2: have changed to PO Decadron at dose of 2 mg daily which he should be able to tolerate and lower dose will help resolve thrush. No SPRING COILER edema from metastatic disease. 3: [facility] and requested that he have inpatient rehab for a short time before returning home. I do not feel it is safe to discharge home at present until it is clear that other problems have resolved such as intermittent confusion, renal failure, and generalized debilitation placing him at risk of fall and injury. In addition we are adding new medicines which may affect cognitive function and this is a man who has been unstable due to SPRING COILER disease and renal failure. He will also have myself and renal service available for monitoring. total time in excess of 45 minutes as it involved at least 30 minutes with the patient and son and lengthy discussions with Dr. Zhong from Hospice and palliative care and Dr. Page from rehab. Jaimie Shine Nov 04, 2017 14:49 Jorge L Randhawa MD Nov 04, 2017 21:30
--- NOTE | 2017-11-04 16:25 | HHI.NPPN ---
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 I was called to see the patient because of very high BUN and creatinine. The patient denies any previous history of renal dysfunction, but when he came in his BUN was 93 and the creatinine was 8.2. Additional Remarks Patient is resting comfortably. Denies any SOB. (Karen Holguin) Review of Systems General Constitutional: Fatigue (Karen Holguin) Respiratory Respiratory Remarks Denies any SOB (Karen Holguin) Cardiovascular Cardiac: BOURGEOIS Cardiac Remarks denies CP (Karen Holguin) Gastrointestinal GI Remarks Denies Abdominal pain (Karen Holguin) Psych Psych: Depression (Karen Holguin) Objective Data Data Vital Signs Date Time Temp Pulse Resp B/P (MAP) Pulse Ox O2 Delivery O2 Flow Rate FiO2 11/04/17 12:00 112 11/04/17 11:47 98.2 79 20 122/71 (88) 95 11/04/17 09:22 117 11/04/17 08:00 97.6 70 18 113/70 (84) 94 11/04/17 04:31 97.9 68 16 121/71 (88) 94 11/04/17 04:00 58 11/04/17 00:08 98.2 72 16 119/69 (86) 94 11/04/17 00:00 66 11/03/17 20:36 98.5 100 18 119/72 (88) 97 11/03/17 20:00 72 (Karen Holguin) -: 11/02/17 0625 11/04/17 0553 Physical Exam General Appearance: No Acute Distress, Comfortable (Karen Holguin) Eyes Eye Exam: Pupils Equal (Karen Holguin) Neck Neck Exam: Neck Supple, Trachea Midline (Karen Holguin) Pulmonary Resp Exam: Breath Sounds Equal, No Distress, Rhonchi, Decreased Bases (Karen Holguin) Cardiology CV Exam: Regular, Normal Sinus Rhythm (Karen Holguin) Gastrointestinal/Abdomen GI Exam: Soft, Non-Tender, Bowel Sounds Present (Karen Holguin) Extremeties Extremities Exam: No Edema (Karen Holguin) Neurologic Neuro Exam: Alert, Awake, Oriented (Karen Holguin) Psychiatric Psych Exam: Appropriate Responses (Karen Holguin) Assessment/Plan Assessment Summary: CASANDRA/Acute Renal Failure Electrolyte Assessment: Metabolic Acidosis Problem List: (1) CASANDRA (acute kidney injury) ICD Codes: N17.9 - Acute kidney failure, unspecified Plan: Patient has CASANDRA, with some chronic changes in the Kidney Biopsy. HD was done on Sat. So far now has been non oliguric. CASANDRA is mainly due to ATN. Creatinine essentially unchanged at 2.55 today if same or better tomorrow, can possible hold HD Will determine need for dialysis with AM labs If not then will start arrangement for out patient HD. (2) Metastatic melanoma ICD Codes: C79.9 - Secondary malignant neoplasm of unspecified site Status: Acute (3) Anorexia ICD Codes: R63.0 - Anorexia (4) Generalized weakness ICD Codes: R53.1 - Weakness (5) Oral thrush ICD Codes: B37.0 - Candidal stomatitis (6) DM (diabetes mellitus) ICD Codes: E11.9 - Type 2 diabetes mellitus without complications (Karen Holguin) Problem List: (1) CASADNRA (acute kidney injury) ICD Codes: N17.9 - Acute kidney failure, unspecified Plan: Patient has CASANDRA, with some chronic changes in the Kidney Biopsy. HD was done on Sat. So far now has been non oliguric. CASANDRA is mainly due to ATN. Creatinine essentially unchanged at 2.55 today if same or better tomorrow, Hold HD today. Will determine need for dialysis with AM labs If not then will start arrangement for out patient HD. Patient seen and examined, agree with above. (2) Metastatic melanoma ICD Codes: C79.9 - Secondary malignant neoplasm of unspecified site Status: Acute (3) Anorexia ICD Codes: R63.0 - Anorexia (4) Generalized weakness ICD Codes: R53.1 - Weakness (5) Oral thrush ICD Codes: B37.0 - Candidal stomatitis (6) DM (diabetes mellitus) ICD Codes: E11.9 - Type 2 diabetes mellitus without complications (Tien Styles MD) Karen Holguin Nov 04, 2017 16:25 Tien Styles MD Nov 04, 2017 17:17
--- NOTE | 2017-11-04 16:55 | PD.CONS ---
Consult Service Palliative Care . Consult Requested By Dr. Campbell . Primary Care Physician Jorge L Randhawa MD . Reason for Consultation a. To assist with evaluation and management of symptoms including: depression; intermittent confusion b. To assist medical decision maker(s) with: better understanding of current medical conditions; weighing benefits/burdens of medical treatment options; making medical treatment decisions. . 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 The patient's medical history is well described in the medical oncology consultation by Dr. Randhawa dated 10/24/17. 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 This grew back and patient underwent a second surgery in 05/2015. Pathology again with in situ melanoma. He began having cognitive and balance difficulties and in August, was found to have 9 metastatic lesions in the brain and a number of metastatic lesions in the lung. Biopsy of one of the left lung lesions on 09/16/2017 came back as melanoma. Patient received whole brain radiation therapy which was completed in late September. He received He received ipilimumab and nivolumab on 10/16/2017. Patient had increasing weakness and fatigue following chemotherapy administration. In the days leading up to this hospitalization he had several days of anorexia, nausea/vomiting, increased cognitive impairment. There was also incontinence of stool. The patient had not reported any significant pain or shortness of breath. Vital signs in the emergency department were as follows --> temperature 97.9 3 : Pulse 74; respiratory rate 17; blood pressure 121/57; pulse oximetry 98% on room air Physical examination in the emergency department noted the following --> skin showed decreased turgor with tenting present. Mild thrush was noted in the oropharynx. Rectum appeared raw from moist liquidy stool but stool was grossly guaiac positive. Rest of the exam was unremarkable. Initial diagnostic testing revealed the following: * CBC showed a BBC 14.3; hemoglobin 14.9; platelet count 187 * Coagulation profile showed PT 10.6; INR 1.0 * Chemistry panel showed BUN 93; creatinine 8.22; glucose 157; albumin 2.8; calcium 9.2; sodium 133; potassium 4.6; chloride 93; CO2 18.5; anion gap 22; estimated GFR 6 * Liver function tests revealed AST 70; ALT 86 * Chest x-ray showed left lung masses no new findings * Head CT showed diffuse bilateral brain metastases. No significant mass effect or midline shift. * Renal ultrasound showed no evidence of hydronephrosis. There is a small nonobstructing renal stone. Some debris was noted in the urinary bladder and some thickening of the urinary bladder wall. Patient was given a 500 cc normal saline fluid bolus in the emergency department and was also given 4 mg of intravenous Decadron. He was admitted to the hospitalist service. Radical oncology and nephrology were consulted. Creatinine went as high as 10.18 on 10/27/17. Hemodialysis was started. Nephrology felt the origin of the kidney disease was most likely acute tubular necrosis. Renal function appears to be improving. Dr. Randhawa has felt that the patient continues to have a chance for cure should he respond well to the immunotherapy. The plan was to try and get him into skilled rehabilitation, get him eating better, and then resume cancer treatments. Hopefully he would not require ongoing dialysis. Today, the patient mentioned to his hospitalist that he was tired of ongoing treatment and would not want to continue dialysis or continue with cancer treatments. Palliative care was consulted to help with any symptom management and to further clarify goals of medical treatment. At time of my visit, the patient is denying pain or shortness of breath. He admits to feeling somewhat depressed. . Function/Cognitive Trajectory Patient reports that prior to the diagnosis of brain metastasis he was quite active. He had no limitations on his activities. He would golf regularly and take long walks. He had a gym membership. He lived by himself and took care of all of his activities of daily living. Since his whole brain radiation, he has been using a walker to ambulate. He has had balance problems with unsteadiness. He has had some intermittent confusion. . Review of Systems Constitutional: COMPLAINS OF: Fatigue, Change in appetite, Generalized weakness , DENIES: Fever, Weight loss, Pain Eyes: DENIES: Blurred vision, Vision loss Ears, nose, mouth, throat: DENIES: Tinnitus, Hearing loss, Throat pain, Epistaxis Respiratory: DENIES: Apneas, Cough, Wheezing, Hemoptysis, Sputum production, Shortness of breath Cardiovascular: DENIES: Chest pain, Palpitations, Dyspnea on Exertion, Lower Extremity Edema Gastrointestinal: COMPLAINS OF: Bloody stools, Diarrhea, Nausea, Vomiting, DENIES: Abdominal pain, Black stools, Constipation, Dyspepsia or heartburn Genitourinary: COMPLAINS OF: Urinary incontinence Musculoskeletal: DENIES: Joint pain, Back pain Integumentary: COMPLAINS OF: Tumors Hematologic/Lymphatics: DENIES: Bruising Immunologic/Allergic: COMPLAINS OF: Eczema, DENIES: Urticaria Neurologic: COMPLAINS OF: Abnormal gait, Localized weakness, Poor Balance, DENIES: Seizures, Tremor Psychiatric: COMPLAINS OF: Confusion, Depression, DENIES: Anxiety, Hallucinations, Agitation Past Family Social History Coded Allergies: acetaminophen (Verified Allergy, Severe, Rash, 10/24/17) ITCHY oxycodone (Verified Allergy, Severe, Rash, 10/24/17) ITCHY Past Medical History * Stage IV malignant melanoma * Type 2 diabetes mellitus * Hyperlipidemia * Hypertension * hypothyroidism . Past Surgical History * Bone spur surgery right elbow 2004 * Excision of melanoma from the tip of his nose first and February 2015 and then May 2015 * Cholecystectomy 2001 * Appendectomy * Tonsillectomy . Reported Medications Prehospitalization medications included the following: Decadron 2 mg tablet 1 by mouth daily Viveros near insulin Levothyroxin 75 g 1 by mouth daily Metformin 1000 mg 1 by mouth twice daily Protonix Lipitor . Current Medications Medications (Trade) Dose Ordered Sig/Benson Route Start Time Stop Time Status Last Admin (Decadron Inj) 2 mg Q12HR IV PUSH 10/24/17 21:00 11/04/17 08:29 (NS Flush) 2 ml UNSCH PRN IV FLUSH 10/24/17 19:30 (NS Flush) 2 ml BID IV FLUSH 10/24/17 21:00 11/04/17 09:00 (Zofran Inj) 4 mg Q6H PRN IVP 10/24/17 19:30 (Morphine Inj) 1 mg Q3H PRN IV PUSH 10/24/17 19:30 (Morphine Inj) 2 mg Q3H PRN IV PUSH 10/24/17 19:30 (Nevin-Colace) 1 tab BID PO 10/24/17 21:00 10/31/17 08:30 (Milk Of Magnesia Liq) 30 ml Q12H PRN PO 10/24/17 19:30 (Senokot) 17.2 mg Q12H PRN PO 10/24/17 19:30 (Dulcolax Supp) 10 mg DAILY PRN RECTAL 10/24/17 19:30 (Lactulose Liq) 30 ml DAILY PRN PO 10/24/17 19:30 Fluconazole/ Sodium Chloride 50 ml @ 50 mls/hr Q24H IV 10/25/17 21:00 11/03/17 20:43 (D50w (Vial) Inj) 50 ml UNSCH PRN IV PUSH 10/24/17 21:15 (Glucagon Inj) 1 mg UNSCH PRN OTHER 10/24/17 21:15 (NovoLOG SUPPLEMENTAL SCALE) 1 ACHS SLIDING SCALE SQ 10/25/17 08:00 11/04/17 12:00 (Restoril) 15 mg HS PRN PO 10/25/17 12:30 10/26/17 20:45 (Eucerin Cream) 1 applic Q6H PRN TOPICAL 10/26/17 11:30 (NS Flush) UNSCH PRN IV FLUSH 10/27/17 12:00 (Heparin Inj) UNSCH PRN IV FLUSH 10/27/17 12:00 Sodium Chloride 1,000 ml @ 0 mls/hr Q0M PRN OTHER 10/27/17 14:38 (Heparin Inj) 8,000 units UNSCH PRN IV FLUSH 10/27/17 14:45 Sodium Chloride 1,000 ml @ 200 mls/hr Q5H PRN IV 10/27/17 14:38 11/01/17 16:42 Sodium Chloride 1,000 ml @ 0 mls/hr Q0M PRN OTHER 10/27/17 14:38 (Mannitol Inj) 12.5 gm UNSCH PRN IV 10/27/17 14:45 Albumin Human 100 ml @ 60 mls/hr UNSCH PRN IV 10/27/17 14:45 (NS Flush) 5 ml UNSCH PRN IV FLUSH 10/27/17 14:45 (Heparin Inj) UNSCH PRN .XX 10/27/17 14:45 11/01/17 16:42 (Gentamicin Inj) 20 mg UNSCH PRN OTHER 10/27/17 14:45 2/17/18 16:42 (Zofran Inj) 4 mg UNSCH PRN IV PUSH 10/27/17 14:45 (Benadryl) 25 mg UNSCH PRN PO 10/27/17 14:45 10/31/17 19:40 (Nitrostat Sl) 0.4 mg UNSCH PRN SL 10/27/17 14:45 (Catapres) 0.1 mg UNSCH PRN PO 10/27/17 14:45 (Gelfoam 12 Mm/7 Mm Top) 1 foam UNSCH PRN TOP 10/27/17 14:45 (Ativan) 0.5 mg Q8H PRN PO 10/31/17 18:45 11/03/17 20:43 (Marinol) 2.5 mg BID@11,16 PO 11/04/17 16:00 . Family History The family history is quite positive for cancer. Both the patient's mother and father of small cell lung cancer. The patient's brother is alive but has lung cancer. . Substance Use Tobacco: The patient smoked approximately one pack per day for 23 years. He quit in the . Alcohol: No history of alcohol abuse. Prescription med abuse: No history of prescription medication abuse. Illicits: Denies use of illicits . Psychosocial History The patient is a [place] of [employer]. 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 Patient is a [place] . The patient was once and . He has one son. The son normally lives in [place] but has living locally lately because of the illness of his father. The patient has a "significant other" who lives in [place] and visits most weekends. The patient has a brother. . Spiritual/Cultural Factors The patient comes from a Quaker tradition. He reports spirituality is important to him. He has already been visited by a academic vice president and appreciates these visits. . Living Will: Completed, but not made available Health Care Surrogate: Completed, but not made available Durable Power of Fitness Consultant: Completed, but not made available Date completed: Both patient and son report there is a completed advanced directive but we do not have a copy available to us. Do not know the date it was signed. . Health Care Surrogate(s): Patient reports that he has designated his son to be his health care surrogate but we do not have written designation of this on file. . Documented care wishes: Patient says he has completed a living will but we do not have this on file. He tells me in person in front of the son that he does not want to be resuscitated. He does not want ongoing aggressive care if the doctors think there is no reasonable chance for him to have quality of life restored. . Today's verbally stated goals: Patient reports he is not afraid of dying. He tells me the quality of life is important to him. He would like to have NO CODE status. He remains ambivalent regarding ongoing aggressive care. He wants to speak to Dr. Randhawa once again about his chances for meaningful recovery. . Family/friends goals: Patient's son is at the bedside. He is supportive of his father stated goals. . Ethical and Legal Issues Patient has a small amount of intermittent confusion but generally appears capacitated to make his own healthcare decisions. Recommend that major decisions be shared decisions including his son who he has verbally designated to be his health care surrogate. . Physical Exam Vital Signs Date Time Temp Pulse Resp B/P (MAP) Pulse Ox O2 Delivery O2 Flow Rate FiO2 11/04/17 12:00 112 11/04/17 11:47 98.2 79 20 122/71 (88) 95 11/04/17 09:22 117 11/04/17 08:00 97.6 70 18 113/70 (84) 94 11/04/17 04:31 97.9 68 16 121/71 (88) 94 11/04/17 04:00 58 11/04/17 00:08 98.2 72 16 119/69 (86) 94 11/04/17 00:00 66 11/03/17 20:36 98.5 100 18 119/72 (88) 97 11/03/17 20:00 72 . Exam CONSTITUTIONAL/GENERAL: This is an adequately nourished patient, in no apparent distress. Affect mildly depressed. TUBES/LINES/DRAINS: SCDs; peripheral IV SKIN: No jaundice, rashes, or lesions. . No wounds seen anteriorly. Skin temperature appropriate. Not diaphoretic. HEAD: Atraumatic. Normocephalic. EYES: Pupils equal and round and reactive. Extraocular motions intact. No scleral icterus. No injection or drainage. Fundi not examined. ENT: Hearing grossly normal. Nose without bleeding or purulent drainage. Throat without visible erythema, exudates, masses, or lesions. NECK: Trachea midline. Supple, nontender. No palpable thyroid enlargement or nodularity. CARDIOVASCULAR: Regular rate and rhythm without murmurs, gallops, or rubs. No JVD. Peripheral pulses symmetric. RESPIRATORY/CHEST: Symmetric, unlabored respirations. Clear to auscultation. Breath sounds equal bilaterally. No wheezes, rales, or rhonchi. GASTROINTESTINAL: Abdomen soft, non-tender, nondistended. No hepato-splenomegaly , or palpable masses. No guarding. Bowel sounds present. GENITOURINARY: Without palpable bladder distension. MUSCULOSKELETAL: Extremities without clubbing, cyanosis, or edema. No joint tenderness or effusion noted. No calf tenderness. No mottling. LYMPHATICS: No palpable cervical or supraclavicular adenopathy. NEUROLOGICAL: Awake and alert. No motor/sensory deficits noted. Follows commands. Intermittently slow cognition and some intermittent difficulty with word-finding. PSYCHIATRIC: Affect somewhat blunted.. No apparent hallucinations or other psychotic thought process. . Diagnostic Tests Laboratory Laboratory Tests Test 11/02/17 06:25 11/03/17 05:50 11/04/17 05:53 White Blood Count 5.0 TH/MM3 (4.0-11.0) Red Blood Count 3.56 MIL/MM3 (4.50-5.90) Hemoglobin 11.0 GM/DL (13.0-17.0) Hematocrit 31.6 % (39.0-51.0) Mean Corpuscular Volume 88.8 FL (80.0-100.0) Mean Corpuscular Hemoglobin 30.9 PG (27.0-34.0) Mean Corpuscular Hemoglobin Concent 34.8 % (32.0-36.0) Red Cell Distribution Width 14.8 % (11.6-17.2) Platelet Count 175 TH/MM3 (150-450) Mean Platelet Volume 8.3 FL (7.0-11.0) Neutrophils (%) (Auto) 74.3 % (16.0-70.0) Lymphocytes (%) (Auto) 18.2 % (9.0-44.0) Monocytes (%) (Auto) 5.9 % (0.0-8.0) Eosinophils (%) (Auto) 1.2 % (0.0-4.0) Basophils (%) (Auto) 0.4 % (0.0-2.0) Neutrophils # (Auto) 3.7 TH/MM3 (1.8-7.7) Lymphocytes # (Auto) 0.9 TH/MM3 (1.0-4.8) Monocytes # (Auto) 0.3 TH/MM3 (0-0.9) Eosinophils # (Auto) 0.1 TH/MM3 (0-0.4) Basophils # (Auto) 0.0 TH/MM3 (0-0.2) CBC Comment DIFF FINAL Differential Comment Blood Urea Nitrogen 25 MG/DL (7-18) 34 MG/DL (7-18) 41 MG/DL (7-18) Creatinine 2.09 MG/DL (0.60-1.30) 2.50 MG/DL (0.60-1.30) 2.55 MG/DL (0.60-1.30) Random Glucose 163 MG/DL (74-106) 163 MG/DL (74-106) 153 MG/DL (74-106) Calcium Level 7.7 MG/DL (8.5-10.1) 7.7 MG/DL (8.5-10.1) 7.8 MG/DL (8.5-10.1) Sodium Level 141 MEQ/L (136-145) 142 MEQ/L (136-145) 139 MEQ/L (136-145) Potassium Level 3.3 MEQ/L (3.5-5.1) 3.2 MEQ/L (3.5-5.1) 3.1 MEQ/L (3.5-5.1) Chloride Level 104 MEQ/L (98-107) 104 MEQ/L (98-107) 103 MEQ/L (98-107) Carbon Dioxide Level 29.5 MEQ/L (21.0-32.0) 25.9 MEQ/L (21.0-32.0) 23.4 MEQ/L (21.0-32.0) Anion Gap 8 MEQ/L (5-15) 12 MEQ/L (5-15) 13 MEQ/L (5-15) Estimat Glomerular Filtration Rate 31 ML/MIN (>89) 26 ML/MIN (>89) 25 ML/MIN (>89) . Result Diagram: 11/02/17 0625 11/04/17 0553 Imaging Last Impressions Renal Biopsy CT 10/29/17 06 Signed Impressions: Service Date/Time: Sunday, October 29, 2017 14:26 - CONCLUSION: Uncomplicated CT guided biopsy. Herson Post MD Catheter Placement X-Ray 10/27/17 06 Signed Impressions: Service Date/Time: Friday, October 27, 2017 11:54 - CONCLUSION: Uncomplicated PermaCath placement as above. Guicho Kumar MD Head CT 10/24/171702 Signed Impressions: Service Date/Time: Tuesday, October 24, 2017 17:43 - CONCLUSION: 1. There is evidence of diffuse bilateral brain metastatic disease. There are several hyperdense masses which could be hemorrhagic masses. 2. No significant mass effect or midline shift. Mayo Baird MD Chest X-Ray 10/24/171702 Signed Impressions: Service Date/Time: Tuesday, October 24, 2017 17:22 - CONCLUSION: Left lung masses as described above. No new findings. Shakir Kumar MD FACR Renal Ultrasound 10/24/17 0000 Signed Impressions: Service Date/Time: Tuesday, October 24, 2017 21:16 - CONCLUSION: 1. No evidence of hydronephrosis. 2. 3 mm calcification along the midpole the right kidney. This very represent a nonobstructing tiny renal stone. 3. Benign-appearing right renal cyst measuring 1.5 cm. 4. There is some thickening of the urinary bladder wall and some debris in the urinary bladder. Mayo Baird MD . Procedures * Hemodialysis . Patient/Family Conference Present at Family Conference: Patient/son . Family Conference Time (mins): 45 Family Conference Location: Bedside Issues Discussed: * Palliative care role, purpose, approach * Additional medical, psychosocial, and spiritual history * Patients general health, functional status, and cognitive changes in the months leading up to the current hospitalization * Patient/family understanding of the current medical problems * Patient/family understanding of prognosis * Patients goals of care as best understood from advance directives and/or conversations and/or values * Current medical treatment options and benefits/burdens of those options * Likely scenarios comparing ongoing aggressive care with a transition to comfort measures only * Questions answered to the best of my ability * Palliative care contact information provided . Assessment and Plan Disease Oriented Problem List: (1) Metastatic melanoma Comment: Known mets to brain and to lung. . (2) CASANDRA (acute kidney injury) Comment: Has required dialysis. Cause of CASANDRA is uncertain. . (3) DM (diabetes mellitus) (4) Oral thrush (5) Stool guaiac positive Symptom Scale: (1) Depression 0-10 Scale: Unable to quantify (2) Generalized weakness 0-10 Scale: Unable to quantify (3) Anorexia 0-10 Scale: Unable to quantify Pertinent Non-Medical Issues Psychosocial: Primary social support comes from the patient's son who is now living in the area to be near his father. There are other family members nearby. Patient also has a "significant other" who lives in [place]. Normally lives by himself. Spiritual: Patient comes from a Quaker tradition. Has appreciated visits from the academic vice president. Legal: Patient is reportedly completed a living will which has designated his son as his health care surrogate. I have asked them to bring a copy in. Ethical issues impacting care: Patient has intermittent mild confusion but is still capacitated to make his own healthcare decisions. I would urge important health care decisions be shared decisions with his son. . Important Contacts * Moncho Mello (son and the verbally designated health care surrogate) [phone] . Prognosis I spoke at length with Dr. Randhawa regarding this patient's prognosis. Dr. Randhawa believes that because of the extent of the disease and the accompanying renal failure, that chances of a good outcome are not great. However, he feels there may be a 15% chance of complete cure if he can get the patient to the point where he is receiving immunotherapy and the immunotherapy is tolerated. Should the patient need dialysis and declined it or should he decide not to pursue cancer directed treatments, the patient would be eligible for hospice services. . Code Status: No Code Plan == Code Status: NO CODE (patient requested NO CODE status in presence of his son) == Decision Making: Patient has a small amount of intermittent confusion but generally appears capacitated to make his own healthcare decisions. Recommend that major decisions be shared decisions including his son who he has verbally designated to be his health care surrogate. == Goals of medical treatment: Pt is currently ambivalent about goals. He is frustrated with his current quality of life. He does not want the current quality of life prolonged. He knows there is still possibility for "cure" and on the one hand he would like to pursue that, on the other hand he does not want to extend treatments and hospitalization that might lead nowhere. == Symptoms: * Pain: Pain is not a problem for him now. * Depression: Denies pre-existing depression. With the diagnosis of brain mets , the cognitive changes from whole brain radiation, and the uremia, it has been hard to keep his spirits up. He is open to a trial of anti-depressants. * Confusion: Has had intermittent confusion which is probably multi-factorial. The brain mets themselves, the impact of whole brain radiation, and the uremia may all contribute. * Generalized weakness * Balance problems == Will start low dose citalopram for depression at 10 mg po qd. No need to change dosing in renal failure but will start at the low 10 mg dose. May need to increase to 20 mg in 2 or so weeks. == Spoke with Dr. Randhawa by phone for [address] Randhawa feels there may be a 15% chance of cure. He feels the patient has little to lose by giving ongoing aggressive care another 6 weeks to see if he can make some progress. On the other hand, Dr. Randhawa is fine at transitioning to "comfort measures only " at such time that the patient indicates he has had enough. == Spoke with Dr. Campbell in person . Updated him on discussion with patient, discussion with Dr. Randhawa, code status, and depression treatment. == Dr. Randhawa plans another visit to patient this evening. If patient feels he does not want dialysis, rehab, or further cancer-directed treatments, will arrange for a hospice consult. == Palliative care contact information provided to patient and his son. == Palliative care we'll continue to follow the patient to assist with symptom management and to further clarify goals of medical treatment as the clinical course evolves. . Time Spent Total Floor Time (mins): 90 (Total floor time included chart review; patient examination; above-referenced telephone conversation with Dr. Randahwa; in person conversation with Dr. Campbell; and documentation.) Face to Face Time (mins): 55 >50% Counseling/Coord of Care: Yes Thank you for the opportunity to participate in the care of Mr. Mello. . Attestation To help prompt me to consider important information that might be impacting today's encounter and assessment, information from prior notes written by myself or my colleagues may have been "brought forward" into today's note. My signature on this note, however, is an attestation that I personally performed the exam, history, and/or decision-making noted today, and, unless otherwise indicated, the interactions with patient, family, and staff as well as the review of records all occurred today. I also attest that the listed assessment and stated plan reflect my best clinical judgment today based on the combination of historical information, prior notes, and today's exam/ interactions. When time spent is documented, it refers only to time spent today by the signer, or if indicated, combined time spent today by collaborating physician/nurse practitioner. . Stevenson Zhong MD Nov 04, 2017 16:55
[2017-11-04] MEDS: DRONABINOL 2.5 MG CAP PO SCH (17:51)
[2017-11-04] MEDS ORDERED: PILL SPLITTER OTHER PRN (18:15)
[2017-11-04] MEDS: LORazepam 0.5 MG TAB PO PRN (21:10)
--- NOTE | 2017-11-04 22:01 | HHI.PR ---
Subjective Remarks Once I entered the room patient told me "I do not want all that , I am not happy " By further questioning and talking with the patient, he told me he is not in favor of doing heart catheter going with further aggressive treatment and he wants to be more involved in his decision-making Objective Vitals Vital Signs Date Time Temp Pulse Resp B/P (MAP) Pulse Ox O2 Delivery O2 Flow Rate FiO2 11/04/17 20:59 98.1 63 16 111/69 (83) 96 11/04/17 18:33 63 11/04/17 17:46 98.7 62 18 110/62 (78) 94 11/04/17 12:00 112 11/04/17 11:47 98.2 79 20 122/71 (88) 95 11/04/17 09:22 117 11/04/17 08:00 97.6 70 18 113/70 (84) 94 11/04/17 04:31 97.9 68 16 121/71 (88) 94 11/04/17 04:00 58 11/04/17 00:08 98.2 72 16 119/69 (86) 94 11/04/17 00:00 66 I/O 11/03/17 11/03/17 11/03/17 11/04/17 11/04/17 11/04/17 07:00 15:00 23:00 07:00 15:00 23:00 Intake Total 240 ml 1200 ml 480 ml Output Total 0 ml 400 ml 265 ml Balance 240 ml 800 ml 215 ml Intake Oral 240 ml 1200 ml 480 ml Output Urine Total 0 ml 400 ml 150 ml Stool Total 115 ml # Voids 4 1 # Bowel Movements 2 5 Result Diagram: 11/02/17 0625 11/04/17 0553 Objective Remarks GENERAL: This is a well-nourished, well-developed patient, in no apparent distress. SKIN: No rashes, warm and dry HEAD: Atraumatic. Normocephalic. EYES: Pupils equal round and reactive. Extraocular motions intact. No scleral icterus. ENT: Nose without bleeding, or drainage, Airway patent. NECK: Trachea midline. Supple CARDIOVASCULAR: Regular rate and rhythm without murmurs, gallops, or rubs. RESPIRATORY: Fair air entry bilaterally. No wheezes, rales, or rhonchi. GASTROINTESTINAL: Abdomen soft, non-tender, nondistended. Positive bowel sounds MUSCULOSKELETAL: Extremities without clubbing, cyanosis, or edema. Pedal pulses appreciated NEUROLOGICAL: Awake and alert. Moves all extremity. Normal speech.no focal neurological deficit Procedures perma-cath placement kidney biopsy A/P Problem List: (1) Metastatic melanoma ICD Code: C79.9 - Secondary malignant neoplasm of unspecified site Status: Acute (2) CASANDRA (acute kidney injury) ICD Code: N17.9 - Acute kidney failure, unspecified (3) Generalized weakness ICD Code: R53.1 - Weakness (4) Anorexia ICD Code: R63.0 - Anorexia (5) Oral thrush ICD Code: B37.0 - Candidal stomatitis (6) DM (diabetes mellitus) ICD Code: E11.9 - Type 2 diabetes mellitus without complications Assessment and Plan 11/02: Creatinine 2.09, follow with renal, repeat BMP in a.m., improved urine output 11/03: Patient cleared by hematology oncology, appreciate nephrology follow-up, they are planning on repeating BMP tomorrow if worsening they will start arrangement for hemodialysis outpatient, however it is about the same like today or last they can hold on hemodialysis, 11/04: Patient sounds more depressed and frustrated today with his medical condition, I consulted Dr. Zhong and discussed with him and with the oncologist DORA. It is warranted to start treatment for depression and consider psychiatry consultation, per Dr. Zhong discussion with Dr. Randhawa, Dr. Randhawa patient has 50% chance of cure however palliative care will continue following with the patient and his wishes will be respected A/P: Metastatic melanoma Continue Decadron Oncology following Acute renal failure/ATN/global glomerulosclerosis s/p kidnet biopsy-pathology ACUTE TUBULAR INJURY. 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 ARTERIOSCLEROSIS, SEVERE. Avoid nephrotoxins s/p perma-cath placement HD initiated. Nephrology following. HD per nephrology. Oral thrush Anorexia Continue Diflucan Generalized weakness Likely related to cancer in treatments Acute renal failure could be contributory Physical therapy continued Diabetes mellitus type 2 Follow blood sugars Insulin sliding scale Diabetic diet DVT prophylaxis SCDs Discharge Planning When cleared by oncology, and nephrology Atul Campbell MD Nov 04, 2017 22:01
[2017-11-05] VITALS (16 sets, daily range): BP systolic 107–127; BP diastolic 62–73; PULSE 60–71; RESP 16–18; TEMP 98–99; O2SAT 93–97
[2017-11-05 07:09] LABS: BICARBONATE 26.1 MEQ/L (21.0-32.0); CALCIUM 7.8 MG/DL (8.5-10.1); CREATININE 2.19 MG/DL (0.60-1.30)
[2017-11-05] MEDS: FLUCONAZOLE 100 MG TAB PO SCH (07:39)
[2017-11-05] MEDS: DEXAMETHASONE 0.5 MG TAB PO SCH (07:40)
[2017-11-05] MEDS: CITALOPRAM HYDROBROMIDE 20 MG TAB PO SCH (07:40)
[2017-11-05] MEDS: INSULIN ASPART SUPPLEMENTAL SCALE SQ SCH ×4 (07:41→20:38)
[2017-11-05] MEDS: SODIUM CHLORIDE 0.9% FLUSH 10 ML FLUSH IV FLUSH SCH ×2 (07:41→20:40)
[2017-11-05] MEDS ORDERED: POTASSIUM CHLORIDE 20 MEQ PWD PACKET PO ONE (08:15)
[2017-11-05] MEDS ORDERED: SERTRALINE HCL 50 MG TAB PO SCH (09:00)
[2017-11-05] MEDS: DOCUSATE SODIUM 50 MG/SENNA 8.6 MG TAB PO SCH ×2 (09:00→20:28)
--- NOTE | 2017-11-05 10:19 | HHI.NPPN ---
Subjective History of Present Illness 72-year-old male with a past medical history of diabetes mellitus, history of metastatic melanoma metastasized to the [employer] and lung was brought to the hospital because of generalized weakness and decreased oral intake. I was called to see the patient because of very high BUN and creatinine. The patient denies any previous history of renal dysfunction, but when he came in his BUN was 93 and the creatinine was 8.2. Additional Remarks Patient is resting comfortably in bed. Denies any SOB. Poor appetite most of tray was left untouched. (Karen Holguin) Review of Systems General Constitutional: Fatigue (Karen Holguin) Respiratory Respiratory Remarks Denies any SOB (Kraen Holguin) Cardiovascular Cardiac: BOURGEOIS Cardiac Remarks denies CP (Karen Holguin) Gastrointestinal GI Remarks Denies Abdominal pain (Karen oHlguin) Psych Psych: Depression (Karen Holguin) Objective Data Data 11/05/17 11/06/17 19:00 07:00 Intake Total 240 ml Balance 240 ml Intake Oral 240 ml Vital Signs Date Time Temp Pulse Resp B/P (MAP) Pulse Ox O2 Delivery O2 Flow Rate FiO2 11/05/17 09:40 64 11/05/17 08:00 99.0 65 16 122/66 (84) 94 11/05/17 06:00 68 11/05/17 05:11 98.3 71 16 123/68 (86) 95 11/05/17 04:00 60 11/05/17 03:00 64 11/05/17 02:00 66 11/05/17 01:00 66 11/05/17 00:00 65 11/05/17 00:00 98.0 70 16 119/67 (84) 94 11/04/17 23:00 62 11/04/17 22:00 56 11/04/17 20:59 98.1 63 16 111/69 (83) 96 11/04/17 20:00 71 11/04/17 19:00 60 11/04/17 18:33 63 11/04/17 17:46 98.7 62 18 110/62 (78) 94 11/04/17 12:00 112 2/20/18 11:47 98.2 79 20 122/71 (88 95 (Karen Holguin) -: 11/02/17 0625 11/05/17 0600 Physical Exam General Appearance: No Acute Distress, Comfortable (Karen Holguin) Eyes Eye Exam: Pupils Equal (Karen Holguin) Neck Neck Exam: Neck Supple, Trachea Midline (Karen Holguin) Pulmonary Resp Exam: Breath Sounds Equal, No Distress, Rhonchi, Decreased Bases (Karen Holguin) Cardiology CV Exam: Regular, Normal Sinus Rhythm (Karen Holguin) Gastrointestinal/Abdomen GI Exam: Soft, Non-Tender, Bowel Sounds Present (Karen Holguin) Extremeties Extremities Exam: No Edema (Karen Holguin) Neurologic Neuro Exam: Alert, Awake, Oriented (Karen Holguin) Psychiatric Psych Exam: Appropriate Responses (Karen Holguin) Assessment/Plan Assessment Summary: CASANDRA/Acute Renal Failure Electrolyte Assessment: Metabolic Acidosis Problem List: (1) CASANDRA (acute kidney injury) ICD Codes: N17.9 - Acute kidney failure, unspecified Plan: Patient has CASANDRA, with some chronic changes in the Kidney Biopsy. HD was done on Sat. So far now has been non oliguric. CASANDRA is mainly due to ATN. Creatinine improving at 2.19 today from 2.55 UOP at 400ml over night Potassium low at 2.7 replacement given and recheck has been ordered With noted improvement in creatinine will consult IR for removal of Perma cath. (2) Metastatic melanoma ICD Codes: C79.9 - Secondary malignant neoplasm of unspecified site Status: Acute (3) Anorexia ICD Codes: R63.0 - Anorexia (4) Generalized weakness ICD Codes: R53.1 - Weakness (5) Oral thrush ICD Codes: B37.0 - Candidal stomatitis (6) DM (diabetes mellitus) ICD Codes: E11.9 - Type 2 diabetes mellitus without complications (Karen Holguin) Problem List: (1) CASANDRA (acute kidney injury) ICD Codes: N17.9 - Acute kidney failure, unspecified Plan: Patient has CASANDRA, with some chronic changes in the Kidney Biopsy. HD was done on Sat. So far now has been non oliguric. CASANDRA is mainly due to ATN. Creatinine improving at 2.19 today from 2.55 UOP at 400ml over night Potassium low at 2.7 replacement given and recheck has been ordered With noted improvement in creatinine will consult IR for removal of Perma cath. Patient seen and examined, agree with above. PermCath removed, possible D/C to SNF. (2) Metastatic melanoma ICD Codes: C79.9 - Secondary malignant neoplasm of unspecified site Status: Acute (3) Anorexia ICD Codes: R63.0 - Anorexia (4) Generalized weakness ICD Codes: R53.1 - Weakness (5) Oral thrush ICD Codes: B37.0 - Candidal stomatitis (6) DM (diabetes mellitus) ICD Codes: E11.9 - Type 2 diabetes mellitus without complications (Tien Styles MD) Karen Holguin Nov 05, 2017 10:19 Tien Styles MD Nov 05, 2017 15:13
--- NOTE | 2017-11-05 13:11 | RADRPT ---
EXAM DATE/TIME: 11/05/2017 00:00 [facility] COMPARISON: No previous studies available for comparison. INDICATIONS : Patient presents with a perm cath and no longer in need of it. MEDICAL HISTORY : DM and Metastatic Melanoma to [facility]/Lungs SURGICAL HISTORY : NA ENCOUNTER: Initial ACUITY: 1 week PAIN SCORE: 0/10 PROCEDURE : 1. PermaCath removal. The risks, benefits and alternatives to the procedure were explained and verbal and written consent w as obtained. The site was prepped in sterile fashion. Full sterile technique was used, including ca p, mask, sterile gloves and gown and a large sterile sheet. Hand hygiene and 2% chlorhexidine and/or betadine/alcohol prep was utilized per protocol for cutaneous antisepsis. The skin and subcutaneous tissues were infiltrated with local anesthetic solution. The tract was anesthetized with 1% Lidocaine using. The Permcath was dissected from the subcutaneous tissues and easily removed in one piece. Manual pressure was applied to the venotomy site until hem ostasis was obtained. Sterile dressing was applied. The patient tolerated the procedure well and there were no complications. CONCLUSION: Uncomplicated Permcath removal. Alexandro Xavier MD on November 05, 2017 at 13:09 Board Certified Radiologist. This report was verified electronically.
[2017-11-05] MEDS: DRONABINOL 2.5 MG CAP PO SCH ×2 (13:19→16:46)
[2017-11-05] MEDS ORDERED: LORA-392 PO (16:57)
[2017-11-05] MEDS ORDERED: CELE20TA PO (16:57)
[2017-11-05] MEDS ORDERED: POTA20TA5 PO (16:57)
[2017-11-05] MEDS ORDERED: CLON.1 PO (16:57)
[2017-11-05] MEDS ORDERED: MAGN30S PO (16:57)
[2017-11-05] MEDS ORDERED: DRON2.5 PO (16:57)
--- NOTE | 2017-11-05 17:01 | HHI.DS ---
Discharge Summary Admission Date Oct 24, 2017 at 19:27 Discharge Date: Nov 05, 2017 Admitting Diagnosis Acute renal failure /weakness/metastatic melenoma/guaiac positive st (1) Metastatic melanoma ICD Code: C79.9 - Secondary malignant neoplasm of unspecified site Diagnosis: Principal Status: Acute (2) CASANDRA (acute kidney injury) ICD Code: N17.9 - Acute kidney failure, unspecified Diagnosis: Principal (3) Generalized weakness ICD Code: R53.1 - Weakness Diagnosis: Principal (4) Anorexia ICD Code: R63.0 - Anorexia Diagnosis: Principal (5) Oral thrush ICD Code: B37.0 - Candidal stomatitis Diagnosis: Principal (6) DM (diabetes mellitus) ICD Code: E11.9 - Type 2 diabetes mellitus without complications Diagnosis: Principal Procedures perma-cath placement kidney biopsy Brief History - From Admission This is a 72-year-old male with a PMH of DM and Metastatic Melanoma to [employer]/ Lungs who was referred to the ER by his Oncologist, Dr. Randhawa for further evaluation of generalized weakness and decreased PO intake. Was recently started on Ipilimumab and Nivolumab approx 10 days ago and was decreased from Decadron 4mg qd to 2mg qd. Pt notes progressive generalized weakness and lack of appetite since treatment. Denies fever, chills. On arrival, BP 96/66, HR 89 , O2 sat 98% on RA, Afebrile. WBC 14.3. Creatinine 8.22, no previous labs for comparison however reportedly normal. K+ 4.6. CXR w/ left lung masses. CT Head w/ diffuse bilateral brain metastatic disease w/ several hyperdense masses possibly hemorrhagic. No c/o abdominal pain, nausea/vomiting or diarrhea. CBC/BMP: 11/02/17 0625 11/05/17 1440 Significant Findings Laboratory Tests Test 11/03/17 05:50 11/04/17 05:53 11/05/17 06:00 11/05/17 14:40 Blood Urea Nitrogen 34 MG/DL (7-18) 41 MG/DL (7-18) 40 MG/DL (7-18) Creatinine 2.50 MG/DL (0.60-1.30) 2.55 MG/DL (0.60-1.30) 2.19 MG/DL (0.60-1.30) Random Glucose 163 MG/DL (74-106) 153 MG/DL (74-106) Calcium Level 7.7 MG/DL (8.5-10.1) 7.8 MG/DL (8.5-10.1) 7.8 MG/DL (8.5-10.1) Potassium Level 3.2 MEQ/L (3.5-5.1) 3.1 MEQ/L (3.5-5.1) 2.7 MEQ/L (3.5-5.1) Estimat Glomerular Filtration Rate 26 ML/MIN (>89) 25 ML/MIN (>89) 30 ML/MIN (>89) PE at Discharge GENERAL: This is a well-nourished, well-developed patient, in no apparent distress. SKIN: No rashes, warm and dry HEAD: Atraumatic. Normocephalic. EYES: Pupils equal round and reactive. Extraocular motions intact. No scleral icterus. ENT: Nose without bleeding, or drainage, Airway patent. NECK: Trachea midline. Supple CARDIOVASCULAR: Regular rate and rhythm without murmurs, gallops, or rubs. RESPIRATORY: Fair air entry bilaterally. No wheezes, rales, or rhonchi. GASTROINTESTINAL: Abdomen soft, non-tender, nondistended. Positive bowel sounds MUSCULOSKELETAL: Extremities without clubbing, cyanosis, or edema. Pedal pulses appreciated NEUROLOGICAL: Awake and alert. Moves all extremity. Normal speech.no focal neurological deficit Hospital Course Mr. Mello is a 72 year old male. He was admitted related to failure to thrive, decreased by mouth intake, and weakness. This is all related to his metastatic melanoma. For time he has been showing decreased renal function. All here he has had a permacath placed but currently is not needing dialysis. She may need dialysis soon if his renal function worsens. Oral thrush was found and treated. No further treatments for oral thrush needed. He has been initiated with therapy but has been having a difficult time and will need continued physical therapy at discharge. He is qualified for inpatient rehabilitation and will transition to inpatient rehabilitation today. Potassium levels have been low and he responded well to potassium supplementation. At this point he will discharge with 5 more days of potassium once daily. Medically stable for discharge to inpatient rehabilitation today. Pt Condition on Discharge: Stable Discharge Disposition: Rehab Inpatient Discharge Time: > 30 minutes Discharge Instructions DIET: Follow Instructions for: As Tolerated, No Restrictions Activities you can perform: See Additionl Instruction Other Activity Instructions: With Therapist Follow up Referrals: Oncology/Hematology - 2 Weeks PCP Follow-up New Medications: Citalopram (Celexa) 20 Mg Tab 10 MG PO DAILY for depression, #30 TAB Clonidine (Catapres) 0.1 Mg Tab 0.1 MG PO UNSCH PRN for for BP > 180/100 X 2 readings, #30 TAB Dronabinol (Marinol) 2.5 Mg Cap 2.5 MG PO BID@11,16 for Appetite Stimulant, #60 CAP Lorazepam (Ativan) 0.5 Mg Tab 0.5 MG PO Q8H PRN for ANXIETY, #30 TAB Magnesium Hydroxide (Qc Milk of Magnesia) 400 Mg/5 Ml Rosie 30 ML PO Q12H PRN for Mild constipation, #600 ML Potassium Chloride Microencaps (Potassium Chloride Microencaps) 20 Meq Tab 20 MEQ PO DAILY for Hypokalemia, #4 TAB Continued Medications: Dexamethasone (Dexamethasone) 2 Mg Tab 2 MG PO DAILY, #30 TAB 0 Refills Levothyroxine (Levothyroxine) 75 Mcg Tab 75 MCG PO DAILY for Thyroid, #30 TAB 0 Refills Metformin (Metformin) 1,000 Mg Tab 1000 MG PO BIDPC for Blood Sugar Management, #60 TAB 0 Refills Pantoprazole (Pantoprazole) 40 Mg Tab 40 MG PO DAILY for Reflux, #30 TAB 0 Refills Rosuvastatin (Rosuvastatin) 40 Mg Tab 40 MG PO DAILY for Cholesterol Management, #30 TAB 0 Refills Discontinued Medications: Insulin Detemir Inj (Levemir Inj) 1,000 unit/ 10 ML Vial 30 UNITS SQ HS for Blood Sugar Management, VIAL 0 Refills Do not mix with any other Insulin. Guicho Vance MD Nov 05, 2017 17:01
--- NOTE | 2017-11-05 18:44 | HHI.HCPN ---
Reason for visit a. To assist with evaluation and management of symptoms including: depression; intermittent confusion b. To assist medical decision maker(s) with: better understanding of current medical conditions; weighing benefits/burdens of medical treatment options; making medical treatment decisions. . Subjective/Interval History Patient denies pain, sob at time of my visit. Still complaining of some intermittent cognitive slowing. Spirits better today. Renal function continues to improve -- it does not appear he will need ongoing dialysis. Permacath was removed today. Patient spoke at length wt Dr. Randhawa yesterday evening. He confirms that he will press on with plans to got to rehab, regain some strength, then continue immunotherapy. He understands that at anytime in the future he feels this is too much for him he will always have the options of transitioning to "comfort measures only." No other concerns/complaints noted. Family/friend interactions No family / friends present. . Advance Directives Living Will: Completed, but not made available Health Care Surrogate: Completed, but not made available Durable Power of Aviation Safety Equipment Technician: Completed, but not made available Advance Directive Specifics Date completed: Both patient and son report there is a completed advanced directive but we do not have a copy available to us. Do not know the date it was signed. . Health Care Surrogate(s): Patient reports that he has designated his son to be his health care surrogate but we do not have written designation of this on file. . Documented care wishes: Patient says he has completed a living will but we do not have this on file. He tells me in person in front of the son that he does not want to be resuscitated. He does not want ongoing aggressive care if the doctors think there is no reasonable chance for him to have quality of life restored. . Significant change in goals: Patient has decided he would life to go to rehab and pursure immunotherapy. . Objective Vital Signs Date Time Temp Pulse Resp B/P (MAP) Pulse Ox O2 Delivery O2 Flow Rate FiO2 11/05/17 13:16 98.9 67 18 127/73 (91) 93 11/05/17 12:44 67 11/05/17 09:40 64 11/05/17 08:00 99.0 65 16 122/66 (84) 94 11/05/17 06:00 68 11/05/17 05:11 98.3 71 16 123/68 (86) 95 2/21/18 04:00 60 11/05/17 03:00 64 11/05/17 02:00 66 11/05/17 01:00 66 11/05/17 00:00 65 11/05/17 00:00 98.0 70 16 119/67 (84) 94 11/04/17 23:00 62 11/04/17 22:00 56 11/04/17 20:59 98.1 63 16 111/69 (83) 96 11/04/17 20:00 71 11/04/17 19:00 60 11/04/17 18:33 63 Intake & Output 11/05/17 11/05/17 07:00 19:00 Intake Total 240 ml Balance 240 ml Intake Oral 240 ml # Voids 2 # Bowel Movements 5 . Physical Exam CONSTITUTIONAL/GENERAL: This is an adequately nourished patient, in no apparent distress. TUBES/LINES/DRAINS: SCDs; peripheral IV SKIN: No jaundice,Skin temperature appropriate. Not diaphoretic. EYES: Pupils equal and round and reactive. Extraocular motions intact. No scleral icterus. No injection or drainage. Fundi not examined. ENT: Hearing grossly normal. Nose without bleeding or purulent drainage. Throat without visible erythema, exudates, masses, or lesions. NECK: Trachea midline. Supple, nontender. CARDIOVASCULAR: Regular rate and rhythm without murmurs, gallops, or rubs. No JVD. RESPIRATORY/CHEST: Symmetric, unlabored respirations. Clear to auscultation. Breath sounds equal bilaterally. No wheezes, rales, or rhonchi. GASTROINTESTINAL: Abdomen soft, non-tender, nondistended. No hepato-splenomegaly , or palpable masses. No guarding. Bowel sounds present. MUSCULOSKELETAL: Extremities without clubbing, cyanosis, or edema. No mottling. LYMPHATICS: Not examined. NEUROLOGICAL: Awake and alert. No motor/sensory deficits noted. Follows commands. Intermittently slow cognition and some intermittent difficulty with word-finding. PSYCHIATRIC: No evidence of depression today. No apparent hallucinations or other psychotic thought process. . Diagnostic Tests Laboratory Laboratory Tests Test 11/03/17 05:50 11/04/17 05:53 11/05/17 06:00 11/05/17 14:40 Blood Urea Nitrogen 34 MG/DL (7-18) 41 MG/DL (7-18) 40 MG/DL (7-18) Creatinine 2.50 MG/DL (0.60-1.30) 2.55 MG/DL (0.60-1.30) 2.19 MG/DL (0.60-1.30) Random Glucose 163 MG/DL (74-106) 153 MG/DL (74-106) 88 MG/DL (74-106) Calcium Level 7.7 MG/DL (8.5-10.1) 7.8 MG/DL (8.5-10.1) 7.8 MG/DL (8.5-10.1) Sodium Level 142 MEQ/L (136-145) 139 MEQ/L (136-145) 140 MEQ/L (136-145) Potassium Level 3.2 MEQ/L (3.5-5.1) 3.1 MEQ/L (3.5-5.1) 2.7 MEQ/L (3.5-5.1) 3.6 MEQ/L (3.5-5.1) Chloride Level 104 MEQ/L (98-107) 103 MEQ/L (98-107) 103 MEQ/L (98-107) Carbon Dioxide Level 25.9 MEQ/L (21.0-32.0) 23.4 MEQ/L (21.0-32.0) 26.1 MEQ/L (21.0-32.0) Anion Gap 12 MEQ/L (5-15) 13 MEQ/L (5-15) 11 MEQ/L (5-15) Estimat Glomerular Filtration Rate 26 ML/MIN (>89) 25 ML/MIN (>89) 30 ML/MIN (>89) . Result Diagram: 11/02/1762411/05/17 1440 Imaging Last Impressions Central Venous Line 11/05/17 0000 Signed Impressions: Service Date/Time: Sunday, November 05, 2017 00:00 - CONCLUSION: Uncomplicated Permcath removal. Alexandro Xavier MD Renal Biopsy CT 10/29/17 06 Signed Impressions: Service Date/Time: Sunday, October 29, 2017 14:26 - CONCLUSION: Uncomplicated CT guided biopsy. Herson Post MD Catheter Placement X-Ray 10/27/17 06 Signed Impressions: Service Date/Time: Friday, October 27, 2017 11:54 - CONCLUSION: Uncomplicated PermaCath placement as above. Guicho Kumar MD Head CT 10/24/171702 Signed Impressions: Service Date/Time: Tuesday, October 24, 2017 17:43 - CONCLUSION: 1. There is evidence of diffuse bilateral brain metastatic disease. There are several hyperdense masses which could be hemorrhagic masses. 2. No significant mass effect or midline shift. Mayo Baird MD Chest X-Ray 10/24/171702 Signed Impressions: Service Date/Time: Tuesday, October 24, 2017 17:22 - CONCLUSION: Left lung masses as described above. No new findings. Shakir Kumar MD FACR Renal Ultrasound 10/24/17 0000 Signed Impressions: Service Date/Time: Tuesday, October 24, 2017 21:16 - CONCLUSION: 1. No evidence of hydronephrosis. 2. 3 mm calcification along the midpole the right kidney. This very represent a nonobstructing tiny renal stone. 3. Benign-appearing right renal cyst measuring 1.5 cm. 4. There is some thickening of the urinary bladder wall and some debris in the urinary bladder. Mayo Baird MD . Procedures * Permacath placement and removal * Hemodialysis . Assessment and Plan Disease Oriented Problem List: (1) Metastatic melanoma Comment: Known mets to brain and to lung. . (2) CASANDRA (acute kidney injury) Comment: Has required dialysis. Cause of CASANDRA is uncertain. Renal function improving. Permacath removed 11/05/17 . . (3) DM (diabetes mellitus) (4) Oral thrush (5) Stool guaiac positive Symptom Scale: (1) Depression 0-10 Scale: Unable to quantify (2) Generalized weakness 0-10 Scale: Unable to quantify (3) Anorexia 0-10 Scale: Unable to quantify Pertinent Non-Medical Issues Psychosocial: Primary social support comes from the patient's son who is now living in the area to be near his father. There are other family members nearby. Patient also has a "significant other" who lives in [place]. Normally lives by himself. Spiritual: Patient comes from a [employer] tradition. Has appreciated visits from the strategy manager. Legal: Patient is reportedly completed a living will which has designated his son as his health care surrogate. I have asked them to bring a copy in. Ethical issues impacting care: Patient has intermittent mild confusion but is still capacitated to make his own healthcare decisions. I would urge important health care decisions be shared decisions with his son. . Important Contacts * Moncho Mello (son and the verbally designated health care surrogate) . Prognosis I spoke at length with Dr. Randhawa regarding this patient's prognosis. Dr. Randhawa believes that because of the extent of the disease and the accompanying renal failure, that chances of a good outcome are not great. However, he feels there may be a 15% chance of complete cure if he can get the patient to the point where he is receiving immunotherapy and the immunotherapy is tolerated. Should the patient need dialysis and declined it or should he decide not to pursue cancer directed treatments, the patient would be eligible for hospice services. . Code Status: No Code Plan == Code Status: NO CODE (patient requested NO CODE status in presence of his son) == Decision Making: Patient has a small amount of intermittent confusion but generally appears capacitated to make his own healthcare decisions. Recommend that major decisions be shared decisions including his son who he has verbally designated to be his health care surrogate. == Goals of medical treatment: Pt has been ambivalent about treatment goals, but now appears committed to at least attempting rehab and going forward with immunotherapy. He is aware that at any time he can decide to transition to "comfort measures only" and enroll with hospice. == Symptoms: * Pain: Pain is not a problem for him now. * Depression: Denies pre-existing depression. With the diagnosis of brain mets , the cognitive changes from whole brain radiation, and the uremia, it has been hard to keep his spirits up. He is open to a trial of anti-depressants. Started on citalopram 11/05/17 * Confusion: Has had intermittent confusion which is probably multi-factorial. The brain mets themselves, the impact of whole brain radiation, and the uremia may all contribute. * Generalized weakness -- Hopefully in large part due to the renal failure and will hopefully improve with improved renal function and rehab. * Balance problems == Started citalopram for depression at 10 mg po qd. No need to change dosing in renal failure but will start at the low 10 mg dose. May need to increase to 20 mg in 2 or so weeks. == Spoke with Dr. Randhawa today who relayed substance of his conversation with the patient and patient's decision to press on with cancer directed treatments if tolerated. . == Palliative care will continue to follow the patient to assist with symptom management and to further clarify goals of medical treatment as the clinical course evolves. . Attestation To help prompt me to consider important information that might be impacting today's encounter and assessment, information from prior notes written by myself or my colleagues may have been "brought forward" into today's note. My signature on this note, however, is an attestation that I personally performed the exam, history, and/or decision-making noted today, and, unless otherwise indicated, the interactions with patient, family, and staff as well as the review of records all occurred today. I also attest that the listed assessment and stated plan reflect my best clinical judgment today based on the combination of historical information, prior notes, and today's exam/ interactions. When time spent is documented, it refers only to time spent today by the signer, or if indicated, combined time spent today by collaborating physician/nurse practitioner. . Stevenson Zhong MD Nov 05, 2017 18:44
--- NOTE | 2017-11-05 19:19 | PD.ONC.PN ---
Subjective Subjective Remarks more lucid and feels a little better today Objective Data Date Time Temp Pulse Resp B/P (MAP) Pulse Ox O2 Delivery O2 Flow Rate FiO2 11/05/17 13:16 98.9 67 18 127/73 (91) 93 11/05/17 12:44 67 11/05/17 09:40 64 11/05/17 08:00 99.0 65 16 122/66 (84) 94 11/05/17 06:00 68 11/05/17 05:11 98.3 71 16 123/68 (86) 95 11/05/17 04:00 60 11/05/17 03:00 64 11/05/17 02:00 66 11/05/17 01:00 66 11/05/17 00:00 65 11/05/17 00:00 98.0 70 16 119/67 (84) 94 11/04/17 23:00 62 11/04/17 22:00 56 11/04/17 20:59 98.1 63 16 111/69 (83) 96 11/04/17 20:00 71 11/05/17 11/05/17 11/05/17 07:00 15:00 23:00 Intake Total 240 ml Balance 240 ml Result Diagram: 11/02/17 0625 11/05/17 1440 Laboratory Results Laboratory Tests Test 11/05/17 06:00 11/05/17 14:40 Blood Urea Nitrogen 40 MG/DL Creatinine 2.19 MG/DL Random Glucose 88 MG/DL Calcium Level 7.8 MG/DL Sodium Level 140 MEQ/L Potassium Level 2.7 MEQ/L 3.6 MEQ/L Chloride Level 103 MEQ/L Carbon Dioxide Level 26.1 MEQ/L Anion Gap 11 MEQ/L Estimat Glomerular Filtration Rate 30 ML/MIN Imaging Studies Last 24 hours Impressions Central Venous Line 11/05/17 0000 Signed Impressions: Service Date/Time: Sunday, November 05, 2017 00:00 - CONCLUSION: Uncomplicated Permcath removal. Alexandro Xavier MD Administered Medications Medications (Trade) Dose Ordered Sig/Benson Route PRN Reason Start Time Stop Time Status Last Admin Dose Admin Sodium Chloride (NS Flush) 2 ml BID IV FLUSH 10/24/17 21:00 11/05/17 07:41 Senna/Docusate Sodium (Nevin-Colace) 1 tab BID PO 10/24/17 21:00 10/31/17 08:30 Insulin Aspart (NovoLOG SUPPLEMENTAL SCALE) 1 ACHS SLIDING SCALE SQ 10/25/17 08:00 11/05/17 17:00 Temazepam (Restoril) 15 mg HS PRN PO insomnia 10/25/17 12:30 10/26/17 20:45 Sodium Chloride 1,000 ml @ 200 mls/hr Q5H PRN IV WITH DIALYSIS 10/27/17 14:38 11/01/17 16:42 Heparin Sodium (Porcine) (Heparin Inj) UNSCH PRN .XX WITH DIALYSIS 10/27/17 14:45 11/01/17 16:42 Gentamicin Sulfate (Gentamicin Inj) 20 mg UNSCH PRN OTHER WITH DIALYSIS 10/27/17 14:45 11/01/17 16:42 Diphenhydramine HCl (Benadryl) 25 mg UNSCH PRN PO for hives/itching/anaphylaxis 10/27/17 14:45 10/31/17 19:40 Lorazepam (Ativan) 0.5 mg Q8H PRN PO ANXIETY 10/31/17 18:45 11/04/17 21:10 Dronabinol (Marinol) 2.5 mg BID@11,16 PO 11/04/17 16:00 11/05/17 16:46 Citalopram Hydrobromide (CeleXA) 10 mg DAILY PO 11/05/17 09:00 11/05/17 07:40 Dexamethasone (Decadron) 2 mg DAILY PO 11/05/17 09:00 11/05/17 07:40 Fluconazole (Diflucan) 100 mg DAILY PO 11/05/17 09:00 11/05/17 07:39 Objective Remarks GENERAL: appears stronger SKIN: Warm and dry. HEAD: Normocephalic. oral pharynx. still with thrush but better. EYES: No scleral icterus. No injection or drainage. NECK: Supple, trachea midline. No JVD or lymphadenopathy. LYMPHATIC: No adenopathy. CARDIOVASCULAR: Regular rate and rhythm without murmurs. RESPIRATORY: Breath sounds equal bilaterally. No accessory muscle use. GASTROINTESTINAL: Abdomen soft, non-tender, nondistended. EXTREMITIES: No cyanosis, or edema. MUSCULOSKELETAL: muscle loss NEUROLOGICAL: No obvious focal deficit. Awake, alert, and oriented x3. more engaged and communicates more effectively PSYCHIATRIC: sad Assessment/Plan Problem List: (1) Metastatic melanoma ICD Codes: C79.9 - Secondary malignant neoplasm of unspecified site Status: Acute Plan: -- Status post ipilumumab and nivolumab on 10/16/17 -- Metastatic disease to the brain as well as the left chest Hx/Workup: Patient is a 72-year-old male with a history of metastatic melanoma with no BRAF mutation. He received presented in February 2015 when a melanoma versus removed from the tip of the nose. Unfortunately this progressed and he had a second surgery in May 2015 as it has grown back. In August 2017 he became acutely ill with memory problems and gait problems and was found to have metastatic disease to the brain. He is status post whole brain radiation therapy completed 2 weeks ago. Over the past several weeks he has had increased weakness fatigue and loss of appetite. He's also had increased vomiting. On admission he was found to have acute renal failure. Assessment 1: clinically he is better and renal failure slowly resolving and expect will continue to do so. I spoke with Dr Styles this am and can remove dialysis catheter now. medicines simplified and now P.O 2: I spoke with Dr. Page this AM and learned that [facility] turned down the request for transfer to [facility]. I then contacted [facility] and had a peer to peer review with Dr. Alexandro Chin and after explaining complexities of care did obtain approval to send the patient to [facility]. 3: the goal will be a short stay at [facility] and then home. Will need to monitor renal function and the impact of the new medicines. I also spoke with Dr. Zhong from hospice and palliative care this am and all parties on the same page. It will take about two months to determine if we can help Mr Mello in a meaningful way or if hospice and comfort measures more appropriate. I spoke with his brother by phone and he understands what is taking place. Time is needed before we can make further decisions about the direction of care. Plan 1. Malnutrition: change diet to regular--patient eating very little. I am hoping by increasing his food choices his intake will improve. will wait to start appetite stimulant bc marinol can alter thought processes and the patient is already depressed and megace will increase his risk of developing a blood clot. 2. metastatic melanoma: this is a very complex patient with multiple conflicting medical issues. for now we are going to hold further treatment and monitor renal function while he is at rehab. 3. Deconditioning: patient is very deconditioned both from treatment and from prolonged hospitalization. would recommend discharge to rehab. we would prefer [facility]. Jorge L Randhawa MD Nov 05, 2017 19:19
[2017-11-05] MEDS: POTASSIUM CHLORIDE 20 MEQ CONTROLLED RELEASE TAB PO SCH (20:36)
[2017-11-05] MEDS: LORazepam 0.5 MG TAB PO PRN (20:36)
[2017-11-06] VITALS (10 sets, daily range): BP systolic 111–129; BP diastolic 59–76; PULSE 58–74; RESP 15–20; TEMP 97.9–98.6; O2SAT 95–98
[2017-11-06 06:07] LABS: AUTOMATED NEUTROPHIL # 3.3 TH/MM3 (1.8-7.7); BASOPHIL % 0.2 % (0.0-2.0); EOSINOPHIL # 0.1 TH/MM3 (0-0.4); EOSINOPHIL % 1.4 % (0.0-4.0); HEMATOCRIT 28.6 % (39.0-51.0); HEMOGLOBIN 9.9 GM/DL (13.0-17.0); LYMPH % 21.6 % (9.0-44.0); MEAN CELL VOLUME 88.4 FL (80.0-100.0); MEAN CORPUSCULAR HEMOGLOBIN 30.7 PG (27.0-34.0); MEAN CORPUSCULAR HGB CONC 34.7 % (32.0-36.0); MEAN PLATELET VOLUME 8.1 FL (7.0-11.0); MONO % 6.1 % (0.0-8.0); MONOCYTE # 0.3 TH/MM3 (0-0.9); NEUT % 70.7 % (16.0-70.0); PLATELET COUNT 210 TH/MM3 (150-450); RED BLOOD COUNT 3.24 MIL/MM3 (4.50-5.90); RED CELL DISTRIBUTION WIDTH 15.2 % (11.6-17.2); WHITE BLOOD COUNT 4.7 TH/MM3 (4.0-11.0)
[2017-11-06 06:36] LABS: ALT (GPT) 23 U/L (12-78); AST (GOT) 17 U/L (15-37); BICARBONATE 24.5 MEQ/L (21.0-32.0); BLOOD UREA NITROGEN 38 MG/DL (7-18); CALCIUM 7.8 MG/DL (8.5-10.1); CHLORIDE 106 MEQ/L (98-107); CREATININE 1.89 MG/DL (0.60-1.30); GLOMERULAR FILTRATION RATE 35 ML/MIN (>89); GLUCOSE,RANDOM 94 MG/DL (74-106); SODIUM (NA) 139 MEQ/L (136-145)
[2017-11-06 06:38] LABS: ALKALINE PHOSPHATASE 52 U/L (45-117); TOTAL BILIRUBIN ADULT 0.5 MG/DL (0.2-1.0); TOTAL PROTEIN 5.2 GM/DL (6.4-8.2)
[2017-11-06] MEDS: INSULIN ASPART SUPPLEMENTAL SCALE SQ SCH (08:00)
[2017-11-06] MEDS: FLUCONAZOLE 100 MG TAB PO SCH (08:13)
[2017-11-06] MEDS: CITALOPRAM HYDROBROMIDE 20 MG TAB PO SCH (08:13)
[2017-11-06] MEDS: POTASSIUM CHLORIDE 20 MEQ CONTROLLED RELEASE TAB PO SCH (08:13)
[2017-11-06] MEDS: DEXAMETHASONE 0.5 MG TAB PO SCH (08:14)
[2017-11-06] MEDS: SODIUM CHLORIDE 0.9% FLUSH 10 ML FLUSH IV FLUSH SCH (08:17)
[2017-11-06] MEDS ORDERED: POTASSIUM CHLORIDE 20 MEQ PWD PACKET PO ONE (08:30)
[2017-11-06] MEDS: DOCUSATE SODIUM 50 MG/SENNA 8.6 MG TAB PO SCH (09:00)
--- NOTE | 2017-11-06 10:17 | HHI.NPPN ---
Subjective History of Present Illness 72-year-old male with a past medical history of diabetes mellitus, history of metastatic melanoma metastasized to the DIRECTOR CHEMISTRY and lung was brought to the hospital because of generalized weakness and decreased oral intake. I was called to see the patient because of very high BUN and creatinine. The patient denies any previous history of renal dysfunction, but when he came in his BUN was 93 and the creatinine was 8.2. Additional Remarks Patient is resting comfortably in bed. Denies any SOB. Plans to transfer to rehab. Permacath removed (Karen Holguin) Review of Systems General Constitutional: Fatigue (Karen Holguin) Respiratory Respiratory Remarks Denies any SOB (Karen Holguin) Cardiovascular Cardiac: BOURGEOIS Cardiac Remarks denies CP (Karen Holguin) Gastrointestinal GI Remarks Denies Abdominal pain (Karen Holguin) Psych Psych: Depression (Karen Holguin) Objective Data Data Vital Signs Date Time Temp Pulse Resp B/P (MAP) Pulse Ox O2 Delivery O2 Flow Rate FiO2 11/06/17 08:07 98.2 67 20 111/59 (76) 98 11/06/17 08:00 61 11/06/17 06:00 58 11/06/17 05:00 64 11/06/17 04:00 98.3 68 16 125/62 (83) 95 11/06/17 04:00 62 11/06/17 03:00 62 11/06/17 02:00 62 11/06/17 01:00 64 11/06/17 00:00 66 11/06/17 00:00 98.6 69 15 129/66 (87) 95 11/05/17 23:00 66 11/05/17 22:00 62 11/05/17 21:00 60 11/05/17 20:40 63 11/05/17 19:44 98.4 67 18 107/62 (77) 97 11/05/17 13:16 98.9 67 18 127/73 (91) 93 11/05/17 12:44 67 (Karen Holguin) -: 11/06/17 0525 11/06/17 0525 Physical Exam General Appearance: No Acute Distress, Comfortable (Karen Holguin) Eyes Eye Exam: Pupils Equal (Karen Holguin) Neck Neck Exam: Neck Supple, Trachea Midline (Karen Holguin) Pulmonary Resp Exam: Breath Sounds Equal, No Distress, Rhonchi, Decreased Bases (Karen Holguin) Cardiology CV Exam: Regular, Normal Sinus Rhythm (Karen Holguin) Gastrointestinal/Abdomen GI Exam: Soft, Non-Tender, Bowel Sounds Present (Karen Holguin) Extremeties Extremities Exam: No Edema (Karen Holguin) Neurologic Neuro Exam: Alert, Awake, Oriented (Karen Holguin) Psychiatric Psych Exam: Appropriate Responses (Karen Holguin) Assessment/Plan Assessment Summary: CASANDRA/Acute Renal Failure Electrolyte Assessment: Metabolic Acidosis Problem List: (1) CASANDRA (acute kidney injury) ICD Codes: N17.9 - Acute kidney failure, unspecified Status: Acute Plan: Patient has CASANDRA, with some chronic changes in the Kidney Biopsy. Last HD was done on Sat. Non oliguric. CASANDRA is mainly due to ATN. Creatinine continues to improve at 1.89 today Plans to discharge Rehab (2) Metastatic melanoma ICD Codes: C79.9 - Secondary malignant neoplasm of unspecified site Status: Acute (3) Anorexia ICD Codes: R63.0 - Anorexia Status: Acute (4) Generalized weakness ICD Codes: R53.1 - Weakness Status: Acute (5) Oral thrush ICD Codes: B37.0 - Candidal stomatitis Status: Acute (6) DM (diabetes mellitus) ICD Codes: E11.9 - Type 2 diabetes mellitus without complications Status: Chronic (Karen Holguin) Problem List: (1) CASANDRA (acute kidney injury) ICD Codes: N17.9 - Acute kidney failure, unspecified Status: Acute Plan: Patient has CASANDRA, with some chronic changes in the Kidney Biopsy. Last HD was done on Sat. Non oliguric. CASANDRA is mainly due to ATN. Creatinine continues to improve at 1.89 today Plans to discharge Rehab. Patient seen and examined, agree with above. PermCath removed, Creatinine improving. (2) Metastatic melanoma ICD Codes: C79.9 - Secondary malignant neoplasm of unspecified site Status: Acute (3) Anorexia ICD Codes: R63.0 - Anorexia Status: Acute (4) Generalized weakness ICD Codes: R53.1 - Weakness Status: Acute (5) Oral thrush ICD Codes: B37.0 - Candidal stomatitis Status: Acute (6) DM (diabetes mellitus) ICD Codes: E11.9 - Type 2 diabetes mellitus without complications Status: Chronic (Tien Styles MD) Karen Holguin Nov 06, 2017 10:17 Tien Styles MD Nov 07, 2017 23:15
[2017-11-06] MEDS: DRONABINOL 2.5 MG CAP PO SCH (10:51)
[2017-11-11] MEDS ORDERED: COMMODE 3-IN-11 MIS (10:53)
[2017-11-11] MEDS ORDERED: GETGO ROLLING W1 MI1 (10:53)
== END 2017-11-06 12:05 | DRG 683 ==
LOC: NEPC 16:39 → NEDA 19:27 → HCIN 10-25 00:42
PROVIDERS: ADMIT Hospitalist; ATTEND Hospitalist
PROC: 02HV33Z Insertion of Infusion Device into Superior Vena Cava, Percutaneous Approach (ICD-10-PCS; principal; 2017-10-27)
PROC: B518ZZA Fluoroscopy of Superior Vena Cava, Guidance (ICD-10-PCS; 2017-10-27)
PROC: 5A1D70Z Performance of Urinary Filtration, Intermittent, Less than 6 Hours Per Day (ICD-10-PCS; 2017-10-27)
PROC: 0TB13ZX Excision of Left Kidney, Percutaneous Approach, Diagnostic (ICD-10-PCS; 2017-10-29)
PROC: 02PYX3Z Removal of Infusion Device from Great Vessel, External Approach (ICD-10-PCS; 2017-11-05)
DX: N17.0 Acute kidney failure with tubular necrosis (principal); C78.00 Secondary malignant neoplasm of unspecified lung; B37.0 Candidal stomatitis; E46 Unspecified protein-calorie malnutrition; C79.31 Secondary malignant neoplasm of brain; N26.9 Renal sclerosis, unspecified; Z85.820 Personal history of malignant melanoma of skin; Z68.23 Body mass index [BMI] 23.0-23.9, adult; R62.7 Adult failure to thrive; R63.4 Abnormal weight loss; E11.9 Type 2 diabetes mellitus without complications; Z79.84 Long term (current) use of oral hypoglycemic drugs; Z79.4 Long term (current) use of insulin; I10 Essential (primary) hypertension; E03.9 Hypothyroidism, unspecified; E78.5 Hyperlipidemia, unspecified; Z92.3 Personal history of irradiation; Z87.891 Personal history of nicotine dependence
CPT/HCPCS: 36558; 36589; 50200; 70450; 71046; 76775; 76937; 77001; 77012; 80048; 80053; 80074; 81001; 82550; 82948; 83935; 84100; 84132; 84155; 84300; 84439; 84443; 84550; 85014; 85018; 85025; 85027; 85610; 85730; 87493; 88305; 88313; 88346; 88348; 88350; 90935; 96374; 96375; 99152; 99153; C1750; C1769; J0696; J1100; J1450; J1580; J1644; J1815; J2250; J2405; J3010; J3370; J7030; J7050; J8540; Q0167